=== PATIENT | female | born 1935 | race Caucasian/White ===

== ENCOUNTER 2019-02-01 16:34 | Inpatient (IN) | payer OTHER ==
[~2019-02-01] VITALS: Ht 160 cm; Wt 87.7 kg
[2019-02-01 16:45] VITALS: BP_SYST 134
[2019-02-01 17:19] LABS: BASOPHILS # (AUTO) 0.1 K/uL (0.0-0.2); EOSINOPHILS # (AUTO) 0.5 K/uL (0.0-0.4); EOSINOPHILS % (AUTO) 7.5 % (0.0-4.0); HEMATOCRIT 39.1 % (36-48); HEMOGLOBIN 13.1 g/dL (12.0-16.0); LYMPHOCYTES % (AUTO) 28.2 % (20.5-51.5); MEAN CORPUSCULAR HEMOGLOBIN 30 pg (27-31); MEAN CORPUSCULAR HGB CONC 34 % (32-36); MEAN CORPUSCULAR VOLUME 91 fL (79.0-98.0); MONOCYTES # (AUTO) 0.6 K/uL (0.0-1.0); MONOCYTES % (AUTO) 7.9 % (1.7-9.3); NEUTROPHILS % (AUTO) 55.4 % (40.0-70.0); PLATELET COUNT (AUTO) 371 K/uL (130-430); RED BLOOD CELL COUNT(AUTO) 4.29 MIL/uL (4.2-6.2); RED CELL DISTRIBUTION WIDTH 13.9 % (9.0-15.0); WHITE BLOOD COUNT (AUTO) 7.1 K/uL (4.8-10.8)
[2019-02-01 17:29] LABS: ANION GAP 12 (5-15); CHLORIDE 111 mmol/L (98-107); CREATININE 1.03 mg/dL (0.55-1.30); GLUCOSE 98 mg/dL (70-99); POTASSIUM 3.9 mmol/L (3.5-5.1); SODIUM SERUM 143 mmol/L (136-145); UREA NITROGEN, BLOOD 21 mg/dL (8-21)
[2019-02-01] MEDS ORDERED: METO50TA7 PO (17:29)
[2019-02-01] MEDS ORDERED: LEVO125T PO (17:29)
[2019-02-01] MEDS ORDERED: [UNRECOGNIZED DRUG - CODE] MC (17:29)
[2019-02-01] MEDS ORDERED: LOSA100T3 PO (17:29)
[2019-02-01] MEDS ORDERED: GABA300S PO (17:29)
[2019-02-01] MEDS ORDERED: GEMF600T5 PO (17:29)
[2019-02-01] MEDS ORDERED: RIVA15TA PO (17:29)
[2019-02-01] MEDS ORDERED: FURO-150 PO (17:29)
[2019-02-01] MEDS ORDERED: POTA10TA15 PO (17:29)
[2019-02-01] MEDS ORDERED: CIME800T PO (17:29)
[2019-02-01] MEDS ORDERED: ALBU2TAB4 INH (17:29)
[2019-02-01] MEDS ORDERED: DULO60CA41 PO (17:29)
[2019-02-01] MEDS ORDERED: VERA180T7 PO (17:29)
[2019-02-01] MEDS ORDERED: HYDROCODONE PO (17:29)
[2019-02-01] MEDS ORDERED: NIFE60TA83 PO (17:29)
[2019-02-01] MEDS ORDERED: TEMA15CA5 PO (17:29)
[2019-02-01] MEDS ORDERED: IPRA4AER INH (17:29)
[2019-02-01] MEDS ORDERED: DOCU-144 PO (17:29)
[2019-02-01] MEDS ORDERED: MIRT15TA7 PO (17:29)
[2019-02-01] MEDS ORDERED: METH1POW38 MC (17:29)
[2019-02-01] MEDS ORDERED: CAT.1 PO (17:29)
[2019-02-01 17:34] LABS: ALANINE AMINOTRANSFERASE 19 U/L (12-78); ALBUMIN 3.4 g/dL (3.4-4.8); ASPARTATE AMINOTRANSFERASE 13 U/L (10-37); TOTAL BILIRUBIN 0.4 mg/dL (0.0-1.0)
[2019-02-01 17:35] LABS: ACETAMINOPHEN < 1 ug/mL (1-30); ALCOHOL, BLOOD < 3 mg/dL (<10)
[2019-02-01 17:40] LABS: BILIRUBIN,URINE NEGATIVE (NEGATIVE); CLARITY/URINE CLEAR (CLEAR); COLOR,URINE YELLOW (YELLOW); GLUCOSE,URINE NEGATIVE (NEGATIVE); KETONES,URINE NEGATIVE (NEGATIVE); LEUKOCYTE ESTERASE ,URINE NEGATIVE (NEGATIVE); NITRITE, URINE NEGATIVE (NEGATIVE); PH,URINE 5.5 (5.0-8.0); PROTEIN URINE NEGATIVE (NEGATIVE); UROBILINOGEN,URINE 0.2 (0.2-1.0)
[2019-02-01 17:44] LABS: BLOOD, URINE TRACE (NEGATIVE)
[2019-02-01 17:48] LABS: BACTERIA,URINE FEW /HPF (None Seen); MUCUS,URINE 2+ /LPF (None Seen)
[2019-02-01 18:00] LABS: INR 1.1 (0.8-1.2); PROTHROMBIN TIME 11.6 SECS (9.5-12.5)
[2019-02-01 18:04] LABS: BARBITURATE, URINE NEGATIVE (NEG <=200); BENZODIAZEPINE, URINE POSITIVE (NEG <=150); CANNABINOID, URINE NEGATIVE (NEG <=50); COCAINE, URINE NEGATIVE (NEG <=150); METHAMPHETAMINES SCREEN,URINE NEGATIVE (NEG <=500); OPIATE, URINE POSITIVE (NEG <=100); PHENCYCLIDINE SCREEN,URINE NEGATIVE (NEG <=25); UR TRICYCLIC ANTIDEPRESSANTS POSITIVE (NEG <=300); URINE AMPHETAMINE NEGATIVE (NEG <=500); URINE METHADONE NEGATIVE (NEG <=200); URINE OXYCODONE SCREEN NEGATIVE (NEG <=100); URINE PROPOXYPHENE SCREEN NEGATIVE (NEG <=300)
[2019-02-01] MEDS ORDERED: ASPIRIN 325 MG TABLET PO ONE (18:30)
[2019-02-01] MEDS ORDERED: ACETAMINOPHEN 325 MG TABLET PO ONE (19:15)
[2019-02-01 19:59] VITALS: BP_SYST 131
[2019-02-01] MEDS ORDERED: cloNIDine HCL 0.1 MG TABLET PO SCH (20:00)
[2019-02-01 20:24] VITALS: BP_SYST 131
[2019-02-01] MEDS ORDERED: IPRATROPIUM/ALBUTEROL SULFATE 120 PUFFS/4 GM INH INH SCH (21:00)
[2019-02-01] MEDS: IPRATROPIUM/ALBUTEROL SULFATE 3 ML AMPUL.NEB (DUONEB) INH SCH (21:00)
[2019-02-01] MEDS: TEMAZEPAM 15 MG CAPSULE PO SCH (21:23)
[2019-02-01] MEDS: GEMFIBROZIL 600 MG TABLET (LOPID) PO SCH (21:23)
[2019-02-01] MEDS: DOCUSATE SODIUM 250 MG CAPSULE PO SCH (21:25)
[2019-02-01] MEDS: VERAPAMIL HCL 180 MG TABLET.SA PO SCH (21:25)
[2019-02-01] MEDS: MIRTAZAPINE 15 MG TABLET PO SCH (21:25)
[2019-02-01 21:26] VITALS: BP_SYST 131
[2019-02-01] MEDS: METOPROLOL SUCCINATE 50 MG TAB.SR.24H (TOPROL XL) PO SCH (21:26)
[2019-02-01] MEDS: FUROSEMIDE 20 MG TABLET PO SCH (21:26)
[2019-02-01] MEDS: RIVAROXABAN 15 MG TABLET PO SCH (21:27)
[2019-02-02 00:43] VITALS: BP_SYST 144
[2019-02-02] MEDS: LEVOTHYROXINE SODIUM 0.15 MG TABLET PO SCH (06:32)
[2019-02-02] MEDS: IPRATROPIUM/ALBUTEROL SULFATE 3 ML AMPUL.NEB (DUONEB) INH SCH ×4 (07:28→19:55)
[2019-02-02 08:39] VITALS: BP_SYST 155
[2019-02-02] MEDS: GEMFIBROZIL 600 MG TABLET (LOPID) PO SCH ×2 (08:49→20:39)
[2019-02-02] MEDS: NIFEDIPINE 30 MG TAB.ER.24 PO SCH (08:49)
[2019-02-02] MEDS: VERAPAMIL HCL 180 MG TABLET.SA PO SCH ×2 (08:50→20:40)
[2019-02-02] MEDS: FUROSEMIDE 20 MG TABLET PO SCH ×2 (08:50→20:40)
[2019-02-02] MEDS: DULoxetine HCL 30 MG CAPSULE.DR (CYMBALTA) PO SCH (08:51)
[2019-02-02] MEDS: DOCUSATE SODIUM 250 MG CAPSULE PO SCH ×2 (08:51→20:39)
[2019-02-02] MEDS: LOSARTAN POTASSIUM 50 MG TABLET (COZAAR) PO SCH (08:52)
[2019-02-02] MEDS: POTASSIUM CHLORIDE 10 MEQ TAB.PRT.SR PO SCH (08:52)
[2019-02-02] MEDS: METOPROLOL SUCCINATE 50 MG TAB.SR.24H (TOPROL XL) PO SCH ×2 (08:52→20:41)
[2019-02-02] MEDS ORDERED: MORPHINE 2 MG/ML INJ. SYRINGE IVP ONE (09:15)
[2019-02-02 11:31] VITALS: BP_SYST 148
[2019-02-02 15:47] VITALS: BP_SYST 155
[2019-02-02 20:00] VITALS: BP_SYST 160
[2019-02-02] MEDS: TEMAZEPAM 15 MG CAPSULE PO SCH (20:39)
[2019-02-02] MEDS: MIRTAZAPINE 15 MG TABLET PO SCH (20:40)
[2019-02-02] MEDS: RIVAROXABAN 15 MG TABLET PO SCH (20:41)
[2019-02-03 02:26] VITALS: BP_SYST 158
[2019-02-03] MEDS: LEVOTHYROXINE SODIUM 0.15 MG TABLET PO SCH (06:21)
[2019-02-03] MEDS: IPRATROPIUM/ALBUTEROL SULFATE 3 ML AMPUL.NEB (DUONEB) INH SCH ×3 (07:13→15:24)
[2019-02-03 07:55] VITALS: BP_SYST 147
[2019-02-03] MEDS: LOSARTAN POTASSIUM 50 MG TABLET (COZAAR) PO SCH (09:49)
[2019-02-03] MEDS: DULoxetine HCL 30 MG CAPSULE.DR (CYMBALTA) PO SCH (09:49)
[2019-02-03] MEDS: NIFEDIPINE 30 MG TAB.ER.24 PO SCH (09:50)
[2019-02-03] MEDS: METOPROLOL SUCCINATE 50 MG TAB.SR.24H (TOPROL XL) PO SCH (09:50)
[2019-02-03] MEDS: FUROSEMIDE 20 MG TABLET PO SCH (09:50)
[2019-02-03] MEDS: VERAPAMIL HCL 180 MG TABLET.SA PO SCH (09:51)
[2019-02-03] MEDS: POTASSIUM CHLORIDE 10 MEQ TAB.PRT.SR PO SCH (09:51)
[2019-02-03] MEDS: DOCUSATE SODIUM 250 MG CAPSULE PO SCH (09:51)
[2019-02-03] MEDS: GEMFIBROZIL 600 MG TABLET (LOPID) PO SCH (09:51)
[2019-02-03 12:01] VITALS: BP_SYST 150
[2019-02-03 12:58] LABS: FREE T4 (FREE THYROXINE) 1.3 ng/dL (0.6-1.6); THYROID STIMULATING HORMONE 0.13 uIu/mL (0.34-4.82)
[2019-02-03 17:18] VITALS: BP_SYST 159
[2019-02-03 17:50] VITALS: BP_SYST 102
== END 2019-02-03 18:19 | disposition home or self-care (01) | DRG 312 ==
LOC: SED 16:34 → STU 18:41
PROVIDERS: ADMIT Internal Medicine Hospice and Palliative Medicine; ATTEND Internal Medicine Hospice and Palliative Medicine
DX: R55 Syncope and collapse (principal); J96.10 Chronic respiratory failure, unspecified whether with hypoxia or hypercapnia; J44.9 Chronic obstructive pulmonary disease, unspecified; E03.9 Hypothyroidism, unspecified; E66.9 Obesity, unspecified; I10 Essential (primary) hypertension; M19.90 Unspecified osteoarthritis, unspecified site; W06.XXXA Fall from bed, initial encounter; T50.995A Adverse effect of other drugs, medicaments and biological substances, initial encounter; M79.7 Fibromyalgia; Z79.01 Long term (current) use of anticoagulants; Z86.73 Personal history of transient ischemic attack (TIA), and cerebral infarction without residual deficits; Z87.891 Personal history of nicotine dependence; Z99.81 Dependence on supplemental oxygen; Z88.6 Allergy status to analgesic agent; Z88.1 Allergy status to other antibiotic agents; Z91.040 Latex allergy status; Z88.0 Allergy status to penicillin; Z91.048 Other nonmedicinal substance allergy status; Z79.899 Other long term (current) drug therapy; Z68.34 Body mass index [BMI] 34.0-34.9, adult; Y93.89 Activity, other specified; Y92.89 Other specified places as the place of occurrence of the external cause; Y99.8 Other external cause status
CPT/HCPCS: 36415; 70450-TC; 71045; 80053; 80307; 81000-TC; 84439; 84443-TC; 84484; 85025; 85610-TC; 85730-TC; 93005; 93306; 94640; 94760; 99285; G0378; G0480; G0481; G0482; J2270; J7620

== ENCOUNTER 2021-02-06 19:21 | Inpatient (IN) | payer OTHER, SELFPAY ==
[~2021-02-06] VITALS: Ht 162.6 cm; Wt 77.1 kg
[~2021-02-06 19:21] MED LIST: ALBU2TAB4 INH; CAT.1 PO; CIME800T PO; DOCU-144 PO; DULO60CA41 PO; FURO-150 PO; GABA300S PO; GEMF600T89 PO; HYDROCODONE PO; IPRA4AER INH; LEVO125T PO; LOSA100T3 PO; METH1POW38 MC; METO50TA7 PO; MIRT15TA7 PO; NIFE60TA83 PO; POTA10TA15 PO; RIVA15TA PO; TEMA15CA5 PO; VERA180T11 PO; [UNRECOGNIZED DRUG - CODE] MC
[2021-02-06 19:25] VITALS: BP_SYST 115
--- NOTE | 2021-02-06 19:30 | NUR ---
Pt BIB BLS from home c/o generalized weakness. Per family pt was recently discharged from [facility] for PNA on Thursday. Since then patient has been increasingly weaker. Per family pt is normally ambulatory at home. Pt has a hx of UTI's and COPD. Per family patients O2 sat was at low as 83% today on 2L/NC. Pt arrived to ED on 4L/NC with SpO2 91% while talking, A/O x3. Pt denies any complaints.
--- NOTE | 2021-02-06 19:31 | NUR ---
Placed in room 4 . Placed on air sampling and monitoring, blood pressure machine and pulse oximeter. To gown for exam. Side rails up.
[2021-02-06] MEDS ORDERED: IPRATROPIUM/ALBUTEROL SULFATE 3 ML AMPUL.NEB (DUONEB) INH ONE ×3 (19:45)
[2021-02-06] MEDS ORDERED: methylPREDNISolone SOD SUCC/PF 62.5 MG/ML VIAL IVP ONE (19:45)
--- NOTE | 2021-02-06 19:45 | NUR ---
Dr. Martinez at bedside
[2021-02-06 20:21] LABS: BASOPHILS # (AUTO) 0.1 K/uL (0.0-0.2); BASOPHILS % (AUTO) 0.6 % (0.0-2.0); EOSINOPHILS % (AUTO) 0.4 % (0.0-4.0); HEMATOCRIT 34.2 % (36-48); HEMOGLOBIN 11.4 g/dL (12.0-16.0); LYMPHOCYTES # (AUTO) 2.3 K/uL (1.0-5.5); LYMPHOCYTES % (AUTO) 21.9 % (20.5-51.5); MEAN CORPUSCULAR HEMOGLOBIN 30 pg (27-31); MEAN CORPUSCULAR HGB CONC 33 % (32-36); MEAN CORPUSCULAR VOLUME 89 fL (79.0-98.0); MONOCYTES # (AUTO) 1.1 K/uL (0.0-1.0); MONOCYTES % (AUTO) 10.8 % (1.7-9.3); NEUTROPHILS # (AUTO) 6.8 K/uL (1.8-7.7); NEUTROPHILS % (AUTO) 66.3 % (40.0-70.0); PLATELET COUNT (AUTO) 350 K/uL (130-430); RED BLOOD CELL COUNT(AUTO) 3.83 MIL/uL (4.2-6.2); RED CELL DISTRIBUTION WIDTH 15.2 % (9.0-15.0); WHITE BLOOD COUNT (AUTO) 10.3 K/uL (4.8-10.8)
[2021-02-06 20:29] LABS: BILIRUBIN,URINE NEGATIVE (NEGATIVE); BLOOD, URINE 2+ (NEGATIVE); CLARITY/URINE CLOUDY (CLEAR); COLOR,URINE YELLOW (YELLOW); GLUCOSE,URINE NEGATIVE (NEGATIVE); KETONES,URINE NEGATIVE (NEGATIVE); LEUKOCYTE ESTERASE ,URINE 2+ (NEGATIVE); NITRITE, URINE POSITIVE (NEGATIVE); PROTEIN URINE 1+ (NEGATIVE); UROBILINOGEN,URINE 0.2 (0.2-1.0)
--- NOTE | 2021-02-06 20:30 | NUR ---
Patient resting quietly. No acute distress noted.
--- NOTE | 2021-02-06 20:41 | NUR ---
RT at bedside
[2021-02-06 20:47] LABS: ANION GAP 17 (5-15); CALCIUM 9.2 mg/dL (8.4-11.0); CHLORIDE 106 mmol/L (98-107); GLUCOSE 106 mg/dL (70-99); POTASSIUM 3.6 mmol/L (3.5-5.1); SODIUM SERUM 145 mmol/L (136-145); UREA NITROGEN, BLOOD 29 mg/dL (8-21)
[2021-02-06 20:53] LABS: ALANINE AMINOTRANSFERASE 11 U/L (12-78); ALBUMIN 3.2 g/dL (3.4-4.8); ASPARTATE AMINOTRANSFERASE 8 U/L (10-37); TOTAL BILIRUBIN 0.4 mg/dL (0.0-1.0)
[2021-02-06] MEDS ORDERED: ACET-73 PO (20:56)
[2021-02-06] MEDS ORDERED: POLY15DR31 EACH EYE (20:56)
[2021-02-06] MEDS ORDERED: FAMO40TA7 PO (20:56)
[2021-02-06] MEDS ORDERED: BISA10SU61 RC (20:56)
[2021-02-06] MEDS ORDERED: MOM PO (20:56)
[2021-02-06] MEDS ORDERED: NIFE60TA65 PO (20:56)
--- NOTE | 2021-02-06 20:57 | NUR ---
Medication reconciliation completed with information provided by MED LIST. Any prior medication reconciliation on file was reviewed and corrected.
[2021-02-06] MEDS ORDERED: cefTRIAXone 1 GM VIAL IM ONE (21:00)
--- NOTE | 2021-02-06 21:24 | NUR ---
Patient will be admitted to care of DR. ZELAYA. Admitted to MED SURG unit. Belongings list completed. Complete and up to date summary report printed. SBAR report to be given at bedside with opportunity for questions.
[2021-02-06 21:36] LABS: RBC,URINE 0-3 /HPF (0-3)
[2021-02-06 21:37] LABS: BACTERIA,URINE MANY /HPF (None Seen); CALCIUM OXALATE CRYSTALS,UR None Seen /HPF (None Seen); CALCIUM PHOSPHATE CRYSTALS,UR None Seen /HPF (None Seen); COARSE GRANULAR CASTS,URINE None Seen /LPF (None Seen); FINE GRANULAR CASTS,URINE None Seen /LPF (None Seen); HYALINE CASTS, URINE None Seen /LPF (None Seen); MUCUS,URINE None Seen /LPF (None Seen); OTHER CASTS, URINE None Seen /LPF (None Seen); OTHER CRYSTALS,URINE None Seen /HPF (None Seen); TRICHOMONAS,URINE None Seen /HPF (None Seen); TRIPLE PHOSPHATE CRYSTAL,UR None Seen /HPF (None Seen); URIC ACID CRYSTALS,URINE None Seen /HPF (None Seen); URINE AMORPHOUS PHOSPHATES None Seen /HPF (None Seen); URINE AMORPHOUS URATE None Seen /HPF (None Seen); WAXY CASTS,URINE None Seen /LPF (None Seen); WBC,URINE >100 /HPF (0-3); YEAST,URINE None Seen /HPF (None Seen)
[2021-02-06] MEDS ORDERED: cefTRIAXone 1 GM VIAL ONE (21:40)
[2021-02-06] MEDS ORDERED: cefTRIAXone 1 GM in D5W 50 ML IV ONE (21:45)
--- NOTE | 2021-02-06 21:47 | NUR ---
Patient's code status is DNR- COMFORT MEASURES ONLY paperwork completed and placed in chart.
--- NOTE | 2021-02-06 22:40 | NUR ---
[facility] IV present no sign or symptom of infiltration. Report given to bedside RN
--- NOTE | 2021-02-06 22:50 | NUR ---
ADMISSION: The patient, ANALY SHANKAR, 85 y/o, F admitted by ALEJANDRA ZELAYA MD, was given written information regarding hospital policies, unit procedures and contact persons. Valuables were checked and pt oriented to her room and surrounding.
[2021-02-06 23:15] VITALS: BP_SYST 129
[2021-02-07] MEDS ORDERED: HYDROCODONE PO PRN (01:00)
[2021-02-07] MEDS ORDERED: ACETAMINOPHEN 500 MG TABLET PO PRN (01:00)
[2021-02-07] MEDS ORDERED: LORazepam 2 MG/ML VIAL IVP PRN (01:00)
[2021-02-07] MEDS ORDERED: NALOXONE HCL 0.4 MG/ML AMP (NARCAN) IVP PRN (01:00)
[2021-02-07] MEDS ORDERED: BISACODYL 10 MG/SUPPOSITORY RC SCH (01:00)
[2021-02-07] MEDS ORDERED: ONDANSETRON HCL 4 MG/2 ML VIAL IVP PRN (01:00)
[2021-02-07] MEDS ORDERED: IPRATROPIUM BROM 0.5 MG/2.5 ML VIAL.NEB (ATROVENT) INH PRN (01:00)
[2021-02-07] MEDS ORDERED: ALBUTEROL SULFATE 0.083% 2.5 MG/3 ML VIAL.NEB INH PRN (01:00)
[2021-02-07] MEDS ORDERED: HYDROcodone/ACETAMIN 5-325 MG TAB (NORCO/ VICODIN) PO PRN (01:00)
[2021-02-07 01:24] VITALS: BP_SYST 129
--- NOTE | 2021-02-07 02:28 | NUR ---
Consultation Paged Reason for Consultation: UTI Was consult called: Y Person who was notified: Madhavi Consulting Physician: Dr. Fitzgerald Ordering Physician: Esequiel Sweet
[2021-02-07] MEDS: LEVOTHYROXINE SODIUM 0.15 MG TABLET PO SCH (06:03)
[2021-02-07] MEDS: NORMAL SALINE 5 ML DISP.SYRIN IVF SCH ×3 (06:03→21:50)
--- NOTE | 2021-02-07 06:45 | NUR ---
PT IS RESTING QUIETLY IN BED. ALL PT'S NEEDS WERE ATTENDED TO. WILL ENDORSE TO DAY SHIFT NURSE.
--- NOTE | 2021-02-07 08:00 | NUR ---
PATIENT RESTING IN BED ON 2LPM NASAL CANULA BREATHING EVEN AND UNLABORED NO SIGN OF DISTRESS, VITALS WNL, LEFT A/C #20 PATENT. SAFETY PRECAUTIONS IN PLACE. WILL CONTINUE TO MONITOR.
[2021-02-07] MEDS ORDERED: NON-FORMULARY MEDICATION (Gabapentin 300 MG) PO SCH (09:00)
[2021-02-07] MEDS ORDERED: NIFEDIPINE 60 MG TABLET.SA (PROCARDIA XL 60 MG) PO SCH (09:00)
[2021-02-07] MEDS ORDERED: METHENAMINE 1 GM MC SCH (09:00)
[2021-02-07] MEDS ORDERED: CEFEPIME 2 GM in D5W 100 ML IV SCH (09:15)
[2021-02-07] MEDS ORDERED: MILK OF MAGNESIA 30 ML UDC PO PRN (10:00)
[2021-02-07] MEDS: CEFEPIME 1 GM in D5W 50 ML IV SCH (10:26)
[2021-02-07] MEDS: GEMFIBROZIL 600 MG TABLET (LOPID) PO SCH ×2 (10:27→21:48)
[2021-02-07] MEDS: GABAPENTIN 300 MG CAPSULE PO SCH ×2 (10:28→21:47)
[2021-02-07] MEDS: DULoxetine HCL 30 MG CAPSULE.DR (CYMBALTA) PO SCH (10:28)
[2021-02-07] MEDS: POTASSIUM CHLORIDE 10 MEQ TAB.PRT.SR PO SCH (10:28)
[2021-02-07] MEDS: FUROSEMIDE 20 MG TABLET PO SCH ×2 (10:28→21:49)
[2021-02-07] MEDS: PEG 400/HYPROMELLOSE/GLYCERIN 15 ML DROPS EACH EYE SCH ×2 (10:29→21:46)
[2021-02-07] MEDS: FAMOTIDINE 20 MG TABLET PO SCH (10:29)
[2021-02-07] MEDS: NIFEdipine 30 MG TAB.ER.24 PO SCH ×2 (10:31→21:47)
[2021-02-07] MEDS: METOPROLOL SUCCINATE 50 MG TAB.SR.24H (TOPROL XL) PO SCH ×2 (10:31→21:49)
[2021-02-07] MEDS: LOSARTAN POTASSIUM 50 MG TABLET (COZAAR) PO SCH (10:32)
[2021-02-07] MEDS: VERAPAMIL HCL 180 MG TABLET.SA PO SCH ×2 (10:42→21:48)
[2021-02-07 12:53] VITALS: BP_SYST 150
--- NOTE | 2021-02-07 15:00 | NUR ---
CONSULTATION: REASON FOR CONSULT: YEIMY CONSULTING PHYSICIAN: AP ORDERED BY: Gloria ZELAYA SPOKE WITH SAYDA [phone]
[2021-02-07 15:26] VITALS: BP_SYST 128
[2021-02-07] MEDS: RIVAROXABAN 15 MG TABLET PO SCH (17:25)
--- NOTE | 2021-02-07 20:00 | NUR ---
Opening notes Pt AAOx2, VSS, afebrile. No c/o pain. IV saline locked L.AC 20. Family at bedside. Call light within reach. Bed low, locked, siderails up x3, bed alarm on. To monitor.
[2021-02-07 20:15] VITALS: BP_SYST 112
[2021-02-07] MEDS: TEMAZEPAM 15 MG CAPSULE PO SCH (21:47)
[2021-02-07] MEDS: MIRTAZAPINE 15 MG TABLET PO SCH (21:48)
[2021-02-07] MEDS: METHENAMINE HIPPURATE 1 GM TABLET PO SCH (21:50)
--- NOTE | 2021-02-07 22:30 | NUR ---
IV RE-INSERTION: IV site not patent. Restarted on L. wrist 22G, saline locked. Successful after 2 attempts. Good blood return. Pt tolerated well.
[2021-02-08 00:48] VITALS: BP_SYST 136
[2021-02-08] MEDS: NORMAL SALINE 5 ML DISP.SYRIN IVF SCH ×2 (06:16→14:00)
[2021-02-08] MEDS: LEVOTHYROXINE SODIUM 0.15 MG TABLET PO SCH (06:16)
--- NOTE | 2021-02-08 06:40 | NUR ---
Closing notes Pt asleep, easily awakens. IV saline locked L.wrist 22G. Call light within reach. Bed low, locked, siderails up x3, bed alarm on. To endorse to AM nurse.
[2021-02-08 07:32] LABS: ALANINE AMINOTRANSFERASE 12 U/L (12-78); ALBUMIN 2.9 g/dL (3.4-4.8); ANION GAP 14 (5-15); ASPARTATE AMINOTRANSFERASE 7 U/L (10-37); CALCIUM 9.1 mg/dL (8.4-11.0); CHLORIDE 109 mmol/L (98-107); CREATININE 0.91 mg/dL (0.55-1.30); GLUCOSE 108 mg/dL (70-99); PHOSPHORUS 3.7 mg/dL (2.7-4.5); POTASSIUM 3.7 mmol/L (3.5-5.1); SODIUM SERUM 144 mmol/L (136-145); TOTAL BILIRUBIN 0.2 mg/dL (0.0-1.0); UREA NITROGEN, BLOOD 33 mg/dL (8-21)
[2021-02-08 07:38] LABS: BASOPHILS # (AUTO) 0.1 K/uL (0.0-0.2); BASOPHILS % (AUTO) 0.9 % (0.0-2.0); EOSINOPHILS # (AUTO) 0.3 K/uL (0.0-0.4); EOSINOPHILS % (AUTO) 2.5 % (0.0-4.0); HEMOGLOBIN 11.2 g/dL (12.0-16.0); LYMPHOCYTES # (AUTO) 1.9 K/uL (1.0-5.5); LYMPHOCYTES % (AUTO) 17.1 % (20.5-51.5); MEAN CORPUSCULAR HEMOGLOBIN 30 pg (27-31); MEAN CORPUSCULAR HGB CONC 33 % (32-36); MEAN CORPUSCULAR VOLUME 90 fL (79.0-98.0); MONOCYTES # (AUTO) 0.8 K/uL (0.0-1.0); MONOCYTES % (AUTO) 6.9 % (1.7-9.3); NEUTROPHILS # (AUTO) 8.2 K/uL (1.8-7.7); NEUTROPHILS % (AUTO) 72.6 % (40.0-70.0); PLATELET COUNT (AUTO) 409 K/uL (130-430); RED CELL DISTRIBUTION WIDTH 14.9 % (9.0-15.0); WHITE BLOOD COUNT (AUTO) 11.3 K/uL (4.8-10.8)
[2021-02-08 08:00] VITALS: BP_SYST 124
--- NOTE | 2021-02-08 08:00 | NUR ---
PATIENT RESTING IN BED ON 2LPM NASAL CANULA BREATHING EVEN AND UNLABORED NO SIGN OF DISTRESS, VITALS WNL. IV ACCESS ON LEFT WRIST PATENT. SAFETY PRECAUTIONS IN PLACE. WILL CONTINUE TO MONITOR.
[2021-02-08 08:38] LABS: C-REACTIVE PROTEIN QUANT 8.5 mg/dL (0-0.5)
[2021-02-08] MEDS: VERAPAMIL HCL 180 MG TABLET.SA PO SCH ×2 (09:00→21:00)
[2021-02-08] MEDS: METHENAMINE HIPPURATE 1 GM TABLET PO SCH (09:00)
[2021-02-08] MEDS: METOPROLOL SUCCINATE 50 MG TAB.SR.24H (TOPROL XL) PO SCH ×2 (09:00→21:39)
[2021-02-08] MEDS: NIFEdipine 30 MG TAB.ER.24 PO SCH ×2 (09:00→21:00)
[2021-02-08 09:03] LABS: ERYTHROCYTE SEDIMENTATION RATE 67 MM/HR (0-20)
[2021-02-08] MEDS: PEG 400/HYPROMELLOSE/GLYCERIN 15 ML DROPS EACH EYE SCH ×2 (10:35→21:32)
[2021-02-08] MEDS: DULoxetine HCL 30 MG CAPSULE.DR (CYMBALTA) PO SCH (10:36)
[2021-02-08] MEDS: FAMOTIDINE 20 MG TABLET PO SCH (10:36)
[2021-02-08] MEDS: POTASSIUM CHLORIDE 10 MEQ TAB.PRT.SR PO SCH (10:36)
[2021-02-08] MEDS: GABAPENTIN 300 MG CAPSULE PO SCH ×2 (10:37→21:30)
[2021-02-08] MEDS: GEMFIBROZIL 600 MG TABLET (LOPID) PO SCH ×2 (10:37→21:31)
[2021-02-08] MEDS: FUROSEMIDE 20 MG TABLET PO SCH ×2 (10:37→21:31)
[2021-02-08] MEDS: LOSARTAN POTASSIUM 50 MG TABLET (COZAAR) PO SCH (10:37)
[2021-02-08] MEDS: HYDROcodone/ACETAMIN 10-325 MG TAB PO PRN ×2 (10:38→17:35)
[2021-02-08] MEDS: CEFEPIME 1 GM in D5W 50 ML IV SCH (10:38)
--- NOTE | 2021-02-08 14:13 | NUR ---
CONSULTATION: REASON FOR CONSULT: AMS CONSULTING PHYSICIAN : CRYSTAL ORDERED BY: GARCIA SPOKE WITH WILLAM [phone]
[2021-02-08 16:18] VITALS: BP_SYST 117
[2021-02-08] MEDS: RIVAROXABAN 15 MG TABLET PO SCH (17:37)
--- NOTE | 2021-02-08 18:49 | NUR ---
PATIENT RESTING IN BED ON 2LPM NASAL CANULA BREATHING EVEN AND UNLABORED NO SIGN OF DISTRESS, WATCHING TV. SAFETY PRECAUTIONS IN PLACE. WILL CONTINUE TO MONITOR.
--- NOTE | 2021-02-08 19:30 | NUR ---
Opening notes Received report. Patient is resting in bed, no signs of distress noted. Breathing even and unlabored on 2 L NC. Patient gets short of breath at times. Educated patient to take deep breaths through the nose, patient verbalized understanding and able to do so. O2 sat at this time 95%. IV patent and intact, no signs of infiltration noted. Hygiene care provided. Patient able to help turn. Patient tolerated well. No other needs at this time. Call light with the patient. Safety precautions in place.
[2021-02-08 20:00] VITALS: BP_SYST 126
[2021-02-08] MEDS: MIRTAZAPINE 15 MG TABLET PO SCH (21:30)
[2021-02-08] MEDS: TEMAZEPAM 15 MG CAPSULE PO SCH (21:31)
[2021-02-09] MEDS: NORMAL SALINE 5 ML DISP.SYRIN IVF SCH ×4 (00:32→21:43)
[2021-02-09 00:53] VITALS: BP_SYST 127
--- NOTE | 2021-02-09 02:42 | NUR ---
RN rounds Patient is sleeping at this time. No signs of distress noted. Breathing even and unlabored on 2 L NC. No needs at this time. call light with the patient. Safety precautions in place.
[2021-02-09] MEDS: LEVOTHYROXINE SODIUM 0.15 MG TABLET PO SCH (06:02)
[2021-02-09 06:45] LABS: BASOPHILS % (AUTO) 0.6 % (0.0-2.0); EOSINOPHILS # (AUTO) 0.2 K/uL (0.0-0.4); HEMATOCRIT 36.8 % (36-48); HEMOGLOBIN 12.1 g/dL (12.0-16.0); LYMPHOCYTES # (AUTO) 1.4 K/uL (1.0-5.5); LYMPHOCYTES % (AUTO) 20.4 % (20.5-51.5); MEAN CORPUSCULAR HEMOGLOBIN 29 pg (27-31); MEAN CORPUSCULAR HGB CONC 33 % (32-36); MEAN CORPUSCULAR VOLUME 89 fL (79.0-98.0); MONOCYTES # (AUTO) 0.5 K/uL (0.0-1.0); MONOCYTES % (AUTO) 8.2 % (1.7-9.3); NEUTROPHILS # (AUTO) 4.5 K/uL (1.8-7.7); NEUTROPHILS % (AUTO) 67.8 % (40.0-70.0); PLATELET COUNT (AUTO) 336 K/uL (130-430); RED BLOOD CELL COUNT(AUTO) 4.14 MIL/uL (4.2-6.2); RED CELL DISTRIBUTION WIDTH 14.6 % (9.0-15.0); WHITE BLOOD COUNT (AUTO) 6.7 K/uL (4.8-10.8)
--- NOTE | 2021-02-09 06:56 | NUR ---
Closing notes Patient is resting in bed, no signs of distress noted. Breathing even and unlabored on 2 L NC. IV patent and intact, infusing fluids. all needs met throughout the shift. Call light with the patient. Safety precautions in place. Will endorse care to day shift RN. Addendum: 02/09/21 at 0658 by Ninoska Main RN Correction: IV patent and intact, saline locked. No signs of infiltration noted.
--- NOTE | 2021-02-09 07:30 | NUR ---
Opening note Received report from night nurse. Patient is alert and oriented X4. On 2 L nasal cannula and tolerating well with no signs of shortness of breath noted. IV is patent, saline locked. Bed locked and in lowest position. Call light within reach. Bed alarm on. Will continue to monitor.
[2021-02-09 07:58] LABS: ALANINE AMINOTRANSFERASE 9 U/L (12-78); ALBUMIN 2.9 g/dL (3.4-4.8); ANION GAP 16 (5-15); ASPARTATE AMINOTRANSFERASE 6 U/L (10-37); CHLORIDE 109 mmol/L (98-107); CREATININE 0.85 mg/dL (0.55-1.30); GLUCOSE 98 mg/dL (70-99); PHOSPHORUS 3.9 mg/dL (2.7-4.5); POTASSIUM 3.4 mmol/L (3.5-5.1); SODIUM SERUM 146 mmol/L (136-145); TOTAL BILIRUBIN 0.2 mg/dL (0.0-1.0); UREA NITROGEN, BLOOD 36 mg/dL (8-21)
[2021-02-09 08:00] VITALS: BP_SYST 138
[2021-02-09] MEDS: GABAPENTIN 300 MG CAPSULE PO SCH ×2 (08:26→21:42)
[2021-02-09] MEDS: VERAPAMIL HCL 180 MG TABLET.SA PO SCH ×2 (08:26→21:00)
[2021-02-09] MEDS: POTASSIUM CHLORIDE 10 MEQ TAB.PRT.SR PO SCH (08:26)
[2021-02-09] MEDS: DULoxetine HCL 30 MG CAPSULE.DR (CYMBALTA) PO SCH (08:27)
[2021-02-09] MEDS: FAMOTIDINE 20 MG TABLET PO SCH (08:27)
[2021-02-09] MEDS: FUROSEMIDE 20 MG TABLET PO SCH (08:27)
[2021-02-09] MEDS: LOSARTAN POTASSIUM 50 MG TABLET (COZAAR) PO SCH (08:27)
[2021-02-09] MEDS: GEMFIBROZIL 600 MG TABLET (LOPID) PO SCH ×2 (08:28→21:42)
[2021-02-09] MEDS: NIFEdipine 30 MG TAB.ER.24 PO SCH ×2 (08:28→21:00)
[2021-02-09] MEDS: METOPROLOL SUCCINATE 50 MG TAB.SR.24H (TOPROL XL) PO SCH ×2 (08:28→21:43)
[2021-02-09] MEDS: CEFEPIME 1 GM in D5W 50 ML IV SCH (08:30)
[2021-02-09] MEDS: PEG 400/HYPROMELLOSE/GLYCERIN 15 ML DROPS EACH EYE SCH ×2 (08:31→21:44)
[2021-02-09 08:48] LABS: ERYTHROCYTE SEDIMENTATION RATE 62 MM/HR (0-20)
[2021-02-09 09:35] LABS: C-REACTIVE PROTEIN QUANT 4.2 mg/dL (0-0.5)
[2021-02-09 11:45] LABS: FREE T4 (FREE THYROXINE) 1.1 ng/dl (0.8-1.5); THYROID STIMULATING HORMONE 0.69 uIu/mL (0.36-3.74)
[2021-02-09 12:13] VITALS: BP_SYST 146
--- NOTE | 2021-02-09 12:28 | NUR ---
CONSULTATION PAGED/CALLED Reason for Consultation: DC PLANNING: FAMILY REGUESTING EVAN SKINNER Person Who was Notified: SOCIAL SERVICE EXT [phone] Ordering Physician: JAZMIN CONN
[2021-02-09] MEDS: HYDROcodone/ACETAMIN 10-325 MG TAB PO PRN (13:32)
[2021-02-09 16:12] VITALS: BP_SYST 117
[2021-02-09] MEDS: RIVAROXABAN 15 MG TABLET PO SCH (17:09)
--- NOTE | 2021-02-09 18:51 | NUR ---
Closing note Received report from night nurse. Patient is alert and oriented X4. On 2 L nasal cannula and tolerating well with no signs of shortness of breath noted. IV is patent, saline locked. Bed locked and in lowest position. Call light within reach. Bed alarm on. Safety and fall precautions in place. Will endorse to night nurse.
--- NOTE | 2021-02-09 19:30 | NUR ---
Opening notes Received report. Patient is resting in bed, no signs of distress noted. Breathing even and unlabored on 2 L NC. IV patent and intact, no signs of infiltration noted. Family at bedside. No needs at this time. Call light with the patient. Safety precautions in place.
[2021-02-09 20:00] VITALS: BP_SYST 115
[2021-02-09] MEDS: MIRTAZAPINE 15 MG TABLET PO SCH (21:42)
[2021-02-09] MEDS: TEMAZEPAM 15 MG CAPSULE PO SCH (21:42)
[2021-02-10 00:26] VITALS: BP_SYST 121
[2021-02-10] MEDS: LEVOTHYROXINE SODIUM 0.15 MG TABLET PO SCH (06:16)
[2021-02-10] MEDS: NORMAL SALINE 5 ML DISP.SYRIN IVF SCH ×3 (06:16→21:15)
--- NOTE | 2021-02-10 06:43 | NUR ---
Closing notes Patient is resting in bed, no signs of distress noted. Breathing even and unlabored on 2 L NC. IV patent and intact, no signs of infiltration noted. all needs met throughout the shift. Call light with the patient. Safety precautions in place. Will endorse care to day shift RN.
[2021-02-10 08:00] VITALS: BP_SYST 163
[2021-02-10] MEDS: NIFEdipine 30 MG TAB.ER.24 PO SCH ×2 (08:01→21:14)
[2021-02-10] MEDS: HYDROcodone/ACETAMIN 10-325 MG TAB PO PRN ×2 (08:02→14:28)
[2021-02-10] MEDS: DULoxetine HCL 30 MG CAPSULE.DR (CYMBALTA) PO SCH (08:03)
[2021-02-10] MEDS: FAMOTIDINE 20 MG TABLET PO SCH (08:04)
[2021-02-10] MEDS: VERAPAMIL HCL 180 MG TABLET.SA PO SCH ×2 (08:04→21:13)
[2021-02-10] MEDS: GABAPENTIN 300 MG CAPSULE PO SCH ×2 (08:04→21:13)
[2021-02-10] MEDS: GEMFIBROZIL 600 MG TABLET (LOPID) PO SCH ×2 (08:04→21:13)
[2021-02-10] MEDS: LOSARTAN POTASSIUM 50 MG TABLET (COZAAR) PO SCH (08:04)
[2021-02-10] MEDS: PEG 400/HYPROMELLOSE/GLYCERIN 15 ML DROPS EACH EYE SCH ×2 (08:05→21:15)
[2021-02-10] MEDS: METOPROLOL SUCCINATE 50 MG TAB.SR.24H (TOPROL XL) PO SCH ×2 (08:05→21:14)
[2021-02-10 08:55] LABS: BASOPHILS # (AUTO) 0.1 K/uL (0.0-0.2); BASOPHILS % (AUTO) 0.9 % (0.0-2.0); EOSINOPHILS # (AUTO) 0.2 K/uL (0.0-0.4); EOSINOPHILS % (AUTO) 3.7 % (0.0-4.0); HEMATOCRIT 41.1 % (36-48); HEMOGLOBIN 13.7 g/dL (12.0-16.0); LYMPHOCYTES # (AUTO) 1.8 K/uL (1.0-5.5); LYMPHOCYTES % (AUTO) 28.8 % (20.5-51.5); MEAN CORPUSCULAR HEMOGLOBIN 29 pg (27-31); MEAN CORPUSCULAR HGB CONC 33 % (32-36); MEAN CORPUSCULAR VOLUME 88 fL (79.0-98.0); MONOCYTES # (AUTO) 0.6 K/uL (0.0-1.0); MONOCYTES % (AUTO) 10.2 % (1.7-9.3); NEUTROPHILS # (AUTO) 3.6 K/uL (1.8-7.7); NEUTROPHILS % (AUTO) 56.4 % (40.0-70.0); PLATELET COUNT (AUTO) 361 K/uL (130-430); RED BLOOD CELL COUNT(AUTO) 4.66 MIL/uL (4.2-6.2); RED CELL DISTRIBUTION WIDTH 14.4 % (9.0-15.0); WHITE BLOOD COUNT (AUTO) 6.3 K/uL (4.8-10.8)
[2021-02-10 09:21] LABS: ALANINE AMINOTRANSFERASE 15 U/L (12-78); ALBUMIN 3.1 g/dL (3.4-4.8); ANION GAP 13 (5-15); ASPARTATE AMINOTRANSFERASE 12 U/L (10-37); CALCIUM 9.5 mg/dL (8.4-11.0); CHLORIDE 106 mmol/L (98-107); CREATININE 0.87 mg/dL (0.55-1.30); GLUCOSE 102 mg/dL (70-99); PHOSPHORUS 3.9 mg/dL (2.7-4.5); SODIUM SERUM 143 mmol/L (136-145); TOTAL BILIRUBIN 0.3 mg/dL (0.0-1.0); UREA NITROGEN, BLOOD 31 mg/dL (8-21)
[2021-02-10] MEDS: CEFEPIME 1 GM in D5W 50 ML IV SCH (10:03)
--- NOTE | 2021-02-10 10:25 | NUR ---
MAHNAZ noted: faxed snf referral package and LVM to Domitila, rayon winder admitting at [facility] fax# , tel [phone]. Addendum: 02/10/21 at 1448 by Stanton Velazquez RN Late entry: s/w Domitila madrigal am, stated the facility is a full capacity, no bed available. She couldn't tell when one will be available. I called eden/Coleen muro unable to leave message her mailbox is full. I left message to the pt's home phone for the dtr to call back kraig to discuss snf placement. Addendum: 02/10/21 at 1622 by Stanton Velazquez RN >> Discussed snf of choice with Jagjit:I provided in area snf info from [place] to [facility]. After the discussion, she requested [facility]. CM faxed the referral to fax# [phone], tel [phone] attn admission dept/Esther. She will call back once reviewed by NADYA. After 5 pm , she will call nursing unit if accepted and had bed assigned for the pt. The pt is to be dc today. . May call [facility] ambulance for transfer. JERRY Goode aware Disposition 03.
[2021-02-10] MEDS ORDERED: ALBU2.5V7 INH (11:24)
[2021-02-10] MEDS ORDERED: CEFE1FRO IV (11:24)
[2021-02-10 12:13] VITALS: BP_SYST 128
[2021-02-10 16:12] VITALS: BP_SYST 146
[2021-02-10 16:18] VITALS: BP_SYST 128
[2021-02-10] MEDS: RIVAROXABAN 15 MG TABLET PO SCH (17:03)
--- NOTE | 2021-02-10 18:43 | NUR ---
Closing note Patient is alert and oriented X4. On 2 L nasal cannula and tolerating well with no signs of shortness of breath noted. IV is patent, saline locked. Bed locked and in lowest position. Call light within reach. Bed alarm on. Safety and fall precautions in place. Will endorse to night nurse.
[2021-02-10 20:00] VITALS: BP_SYST 141
--- NOTE | 2021-02-10 20:05 | NUR ---
Opening notes Pt AAOx4, watching TV, no s/s distress noted. VSS. O2 sat 93% on O2 2L via NC. Pt denies pain at this time. L. wrist 22G saline locked, clear and patent. Call light within reach. Bed low, locked, siderails up x3, alarm on. To monitor.
[2021-02-10] MEDS: MIRTAZAPINE 15 MG TABLET PO SCH (21:13)
[2021-02-10] MEDS: TEMAZEPAM 15 MG CAPSULE PO SCH (21:13)
--- NOTE | 2021-02-10 22:30 | NUR ---
Commode Pt assisted to BSC and pt voided and had a large soft BM, pericare provided. Supervised back to bed. Bed alarm on. To monitor.
[2021-02-11] VITALS: BP_SYST 141
[2021-02-11] MEDS: LEVOTHYROXINE SODIUM 0.15 MG TABLET PO SCH (06:32)
[2021-02-11] MEDS: NORMAL SALINE 5 ML DISP.SYRIN IVF SCH ×2 (06:32→14:00)
--- NOTE | 2021-02-11 06:33 | NUR ---
Closing notes Pt asleep, easily awakens. Pt denies pain at this time. L. wrist 22G saline locked, clear and patent. Call light within reach. Bed low, locked, siderails up x3, alarm on. To endorse to AM nurse.
--- NOTE | 2021-02-11 06:55 | NUR ---
Pt incontinent of urine. Pericare provided.
[2021-02-11 08:00] VITALS: BP_SYST 130
[2021-02-11 08:56] LABS: BASOPHILS # (AUTO) 0.1 K/uL (0.0-0.2); BASOPHILS % (AUTO) 0.9 % (0.0-2.0); EOSINOPHILS # (AUTO) 0.3 K/uL (0.0-0.4); EOSINOPHILS % (AUTO) 3.8 % (0.0-4.0); HEMATOCRIT 40.3 % (36-48); HEMOGLOBIN 13.2 g/dL (12.0-16.0); LYMPHOCYTES # (AUTO) 1.8 K/uL (1.0-5.5); LYMPHOCYTES % (AUTO) 21.9 % (20.5-51.5); MEAN CORPUSCULAR HEMOGLOBIN 29 pg (27-31); MEAN CORPUSCULAR HGB CONC 33 % (32-36); MEAN CORPUSCULAR VOLUME 88 fL (79.0-98.0); MONOCYTES # (AUTO) 0.7 K/uL (0.0-1.0); MONOCYTES % (AUTO) 9.2 % (1.7-9.3); NEUTROPHILS # (AUTO) 5.2 K/uL (1.8-7.7); NEUTROPHILS % (AUTO) 64.2 % (40.0-70.0); PLATELET COUNT (AUTO) 360 K/uL (130-430); RED BLOOD CELL COUNT(AUTO) 4.59 MIL/uL (4.2-6.2); RED CELL DISTRIBUTION WIDTH 14.4 % (9.0-15.0); WHITE BLOOD COUNT (AUTO) 8.1 K/uL (4.8-10.8)
[2021-02-11] MEDS: CEFEPIME 1 GM in D5W 50 ML IV SCH (09:00)
[2021-02-11] MEDS: PEG 400/HYPROMELLOSE/GLYCERIN 15 ML DROPS EACH EYE SCH (09:00)
[2021-02-11] MEDS: DULoxetine HCL 30 MG CAPSULE.DR (CYMBALTA) PO SCH (09:03)
[2021-02-11] MEDS: VERAPAMIL HCL 180 MG TABLET.SA PO SCH (09:03)
[2021-02-11] MEDS: LOSARTAN POTASSIUM 50 MG TABLET (COZAAR) PO SCH (09:03)
[2021-02-11] MEDS: METOPROLOL SUCCINATE 50 MG TAB.SR.24H (TOPROL XL) PO SCH (09:03)
[2021-02-11] MEDS: FAMOTIDINE 20 MG TABLET PO SCH (09:04)
[2021-02-11] MEDS: NIFEdipine 30 MG TAB.ER.24 PO SCH (09:04)
[2021-02-11] MEDS: GABAPENTIN 300 MG CAPSULE PO SCH (09:04)
[2021-02-11] MEDS: GEMFIBROZIL 600 MG TABLET (LOPID) PO SCH (09:04)
[2021-02-11 09:24] LABS: ALANINE AMINOTRANSFERASE 11 U/L (12-78); ANION GAP 13 (5-15); ASPARTATE AMINOTRANSFERASE 7 U/L (10-37); CALCIUM 9.3 mg/dL (8.4-11.0); CHLORIDE 108 mmol/L (98-107); CREATININE 0.82 mg/dL (0.55-1.30); GLUCOSE 112 mg/dL (70-99); PHOSPHORUS 3.6 mg/dL (2.7-4.5); POTASSIUM 4.1 mmol/L (3.5-5.1); SODIUM SERUM 142 mmol/L (136-145); TOTAL BILIRUBIN 0.2 mg/dL (0.0-1.0); UREA NITROGEN, BLOOD 27 mg/dL (8-21)
[2021-02-11 11:33] VITALS: BP_SYST 116
--- NOTE | 2021-02-11 12:16 | NUR ---
CM note: per Margi[facility], the pt is assisgned to room 122, bed available now, RN to report # [phone]. JERRY Saavedra made aware, she will also arrange the ambulance , BLS transfer timely as well.
[2021-02-11 12:32] VITALS: BP_SYST 135
--- NOTE | 2021-02-11 12:40 | NUR ---
NOTE Called Stanton (MAHNAZ) and informed her that she needs to call [facility] as we are unable to call ambulance.
--- NOTE | 2021-02-11 12:51 | NUR ---
CM note: booked with [facility] for [facility]els[facility] picker time at 3 pm -- RN Keri made aware. DTR/Coleen made aware, she agreed with the transfer today.
--- NOTE | 2021-02-11 14:32 | NUR ---
PHYSICAL THERAPY CO-SIGN The Physical Therapy Progress Notes documented by Member Services Representative have been reviewed. Reviewed/Co-Signed by: Bandar Walker Documentation Done by: NADIR BARRAZA PTA Addendum: 02/11/21 at 1432 by Bandar Walker PT Amended: Links added.
--- NOTE | 2021-02-11 14:45 | NUR ---
NOTE Received order for discharge and pt being transferred to [facility], bed 122. Report was given to Vangie EDWARDS at [facility] for continuation of care. Pt's IV was dc'd from left wrist - site benign - no swelling/redness/bleeding/drainage noted. Pt dressed in orange gown and sheet. Pt stable. All belongings packed - checked side table and drawers for belongings. Discharge packet ready and at nurses' station at this time. Call light within reach.
--- NOTE | 2021-02-11 15:15 | NUR ---
Note EMT from [facility] on the floor - report and discharge packet given to EMT to give staff at [facility]. Pt off the floor via gurney with all her belongings to [facility]. Pt's daughter Coleen was called and notified of transfer at 1245pm and 1440pm. Updates given and questions/concerns were answered at this time. Addendum: 02/11/21 at 1636 by Keri Collins RN Pt was checked on q1' and PRN all shift for needs and care. Pt next to nurses' station for close observation. Pt's bed in low position and bed alarm on all shift.
[2021-02-11 15:48] VITALS: BP_SYST 118
== END 2021-02-11 15:15 | DRG 682 ==
LOC: EDBD → SED 19:21 → STU 21:25 → SMU 22:11
PROVIDERS: ADMIT Preventive Medicine Preventive Medicine/Occupational Environmental Medicine; ATTEND Preventive Medicine Preventive Medicine/Occupational Environmental Medicine
DX: N17.0 Acute kidney failure with tubular necrosis (principal); J96.01 Acute respiratory failure with hypoxia; G93.41 Metabolic encephalopathy; I50.43 Acute on chronic combined systolic (congestive) and diastolic (congestive) heart failure; I13.0 Hypertensive heart and chronic kidney disease with heart failure and stage 1 through stage 4 chronic kidney disease, or unspecified chronic kidney disease; N39.0 Urinary tract infection, site not specified; J44.1 Chronic obstructive pulmonary disease with (acute) exacerbation; E44.0 Moderate protein-calorie malnutrition; I25.10 Atherosclerotic heart disease of native coronary artery without angina pectoris; M19.90 Unspecified osteoarthritis, unspecified site; M79.7 Fibromyalgia; D64.9 Anemia, unspecified; Z20.822 Contact with and (suspected) exposure to COVID-19; R73.9 Hyperglycemia, unspecified; E88.09 Other disorders of plasma-protein metabolism, not elsewhere classified; E83.41 Hypermagnesemia; E86.0 Dehydration; F03.90 Unspecified dementia, unspecified severity, without behavioral disturbance, psychotic disturbance, mood disturbance, and anxiety; N18.9 Chronic kidney disease, unspecified; Z88.5 Allergy status to narcotic agent; Z88.0 Allergy status to penicillin; Z88.8 Allergy status to other drugs, medicaments and biological substances; Z79.899 Other long term (current) drug therapy; Z91.040 Latex allergy status; Z86.73 Personal history of transient ischemic attack (TIA), and cerebral infarction without residual deficits; Z87.01 Personal history of pneumonia (recurrent); Z87.440 Personal history of urinary (tract) infections; Z88.9 Allergy status to unspecified drugs, medicaments and biological substances; Z68.29 Body mass index [BMI] 29.0-29.9, adult
CPT/HCPCS: 36415; 71045; 80053; 81000; 83036; 83605; 83735; 83880; 84100; 84439; 84443; 84484; 85025; 85651-TC; 86140; 87040-TC; 87081; 87086; 93005; 94640; 96365; 96375; 99285; J0692; J0696; J2060; J2930; J7060

== ENCOUNTER 2021-03-13 11:08 | Emergency (ER) | payer OTHER, SELFPAY ==
[~2021-03-13] VITALS: Ht 162.6 cm; Wt 72.6 kg
[~2021-03-13 11:08] MED LIST changes: +ACET-73 PO; +ALBU2.5V7 INH; +BISA10SU61 RC; -CAT.1 PO; +CEFE1FRO IV; -DOCU-144 PO; -IPRA4AER INH; +MOM PO; +NIFE60TA65 PO; -NIFE60TA83 PO; +POLY15DR31 EACH EYE; -[UNRECOGNIZED DRUG - CODE] MC
[2021-03-13 11:19] VITALS: BP_SYST 140
[2021-03-13 12:07] LABS: BASOPHILS # (AUTO) 0.1 K/uL (0.0-0.2); BASOPHILS % (AUTO) 0.8 % (0.0-2.0); EOSINOPHILS # (AUTO) 0.2 K/uL (0.0-0.4); EOSINOPHILS % (AUTO) 2.8 % (0.0-4.0); HEMOGLOBIN 13.1 g/dL (12.0-16.0); LYMPHOCYTES # (AUTO) 1.8 K/uL (1.0-5.5); LYMPHOCYTES % (AUTO) 24.5 % (20.5-51.5); MEAN CORPUSCULAR HEMOGLOBIN 30 pg (27-31); MEAN CORPUSCULAR HGB CONC 34 % (32-36); MEAN CORPUSCULAR VOLUME 88 fL (79.0-98.0); MONOCYTES # (AUTO) 0.6 K/uL (0.0-1.0); MONOCYTES % (AUTO) 7.6 % (1.7-9.3); NEUTROPHILS # (AUTO) 4.9 K/uL (1.8-7.7); NEUTROPHILS % (AUTO) 64.3 % (40.0-70.0); PLATELET COUNT (AUTO) 351 K/uL (130-430); RED BLOOD CELL COUNT(AUTO) 4.43 MIL/uL (4.2-6.2); RED CELL DISTRIBUTION WIDTH 14.5 % (9.0-15.0); WHITE BLOOD COUNT (AUTO) 7.5 K/uL (4.8-10.8)
[2021-03-13 12:21] LABS: INR 2.2 (0.8-1.2); PROTHROMBIN TIME 22.5 SECS (9.5-12.5)
[2021-03-13 12:25] LABS: ALANINE AMINOTRANSFERASE 19 U/L (12-78); ALBUMIN 3.7 g/dL (3.4-4.8); ANION GAP 6 (5-15); ASPARTATE AMINOTRANSFERASE 20 U/L (10-37); CALCIUM 9.1 mg/dL (8.4-11.0); CHLORIDE 107 mmol/L (98-107); CREATININE 0.95 mg/dL (0.55-1.30); GLUCOSE 103 mg/dL (70-99); SODIUM SERUM 142 mmol/L (136-145); TOTAL BILIRUBIN 0.5 mg/dL (0.0-1.0); UREA NITROGEN, BLOOD 22 mg/dL (8-21)
[2021-03-13 14:28] VITALS: BP_SYST 157
== END 2021-03-13 14:30 | disposition home or self-care (01) ==
LOC: SED 11:08 → EDBD 11:08 → SED 14:30
DX: R04.0 Epistaxis (principal); I10 Essential (primary) hypertension; J44.9 Chronic obstructive pulmonary disease, unspecified; Z88.0 Allergy status to penicillin; Z88.5 Allergy status to narcotic agent; Z88.1 Allergy status to other antibiotic agents; Z79.899 Other long term (current) drug therapy
CPT/HCPCS: 36415; 80053; 85025; 85610-TC; 85730-TC; 99284

== ENCOUNTER 2021-03-15 15:10 | Emergency (ER) | payer OTHER ==
[~2021-03-15] VITALS: Ht 162.6 cm; Wt 72.6 kg
[2021-03-15 15:25] VITALS: BP_SYST 117
[2021-03-15 19:11] VITALS: BP_SYST 118
== END 2021-03-15 19:11 | disposition home or self-care (01) ==
LOC: SED 15:10
DX: R04.0 Epistaxis (principal); I10 Essential (primary) hypertension; J44.9 Chronic obstructive pulmonary disease, unspecified; Z88.0 Allergy status to penicillin; Z88.1 Allergy status to other antibiotic agents; Z88.5 Allergy status to narcotic agent; Z79.899 Other long term (current) drug therapy
CPT/HCPCS: 71045; 99283

== ENCOUNTER 2022-01-07 10:41 | Inpatient (IN) | payer OTHER ==
[2022-01-07] VITALS (7 sets, daily range): BP systolic 112–131
[~2022-01-07] VITALS: Ht 162.6 cm; Wt 63.5 kg
[~2022-01-07 10:41] MED LIST changes: -DULO60CA41 PO; +DULO60CA42 PO; +MIRT-91 PO; -MIRT15TA7 PO; -VERA180T11 PO; +VERA180T59 PO
--- NOTE | 2022-01-07 10:55 | NUR ---
PT PLACED IN ROOM 5 TO BE TRIAGED.
--- NOTE | 2022-01-07 10:58 | NUR ---
DR. EAGLE IN ROOM ASSESSING PT.
--- NOTE | 2022-01-07 10:59 | NUR ---
RECEIVED PT AAOX3 WITH EPISODE OF CONFUSION, PT SOB WITH NONREBREATHER IN PLACE AT 15LPM, O2 SAT 89%. PT TACHYPNEIC. SKIN CDI. WITH BLE 2+ EDEMA. DENIES PAIN .
--- NOTE | 2022-01-07 11:08 | NUR ---
ABG OBTAINED. Addendum: 01/07/22 at 1127 by [id number] DUPLICATE
--- NOTE | 2022-01-07 11:27 | NUR ---
PT PLACED ON HIGH FLOW N/C AT 25 L WITH FIO2 65% AT THIS TIME.
[2022-01-07 11:32] LABS: BASOPHILS # (AUTO) 0.1 K/uL (0.0-0.2); BASOPHILS % (AUTO) 0.4 % (0.0-2.0); EOSINOPHILS # (AUTO) 0.1 K/uL (0.0-0.4); EOSINOPHILS % (AUTO) 0.7 % (0.0-4.0); HEMATOCRIT 34.5 % (36-48); HEMOGLOBIN 11.4 g/dL (12.0-16.0); LYMPHOCYTES # (AUTO) 1.1 K/uL (1.0-5.5); LYMPHOCYTES % (AUTO) 7.1 % (20.5-51.5); MEAN CORPUSCULAR HEMOGLOBIN 29 pg (27-31); MEAN CORPUSCULAR HGB CONC 33 % (32-36); MEAN CORPUSCULAR VOLUME 86 fL (79.0-98.0); MONOCYTES # (AUTO) 0.7 K/uL (0.0-1.0); MONOCYTES % (AUTO) 4.4 % (1.7-9.3); NEUTROPHILS # (AUTO) 13.8 K/uL (1.8-7.7); NEUTROPHILS % (AUTO) 87.4 % (40.0-70.0); PLATELET COUNT (AUTO) 309 K/uL (130-430); RED BLOOD CELL COUNT(AUTO) 3.99 MIL/uL (4.2-6.2); RED CELL DISTRIBUTION WIDTH 14.1 % (9.0-15.0); WHITE BLOOD COUNT (AUTO) 15.8 K/uL (4.8-10.8)
[2022-01-07 11:34] LABS: ANION GAP 15 (5-15); CALCIUM 8.2 mg/dL (8.4-11.0); CHLORIDE 106 mmol/L (98-107); CREATININE 2.75 mg/dL (0.55-1.30); GLUCOSE 125 mg/dL (70-99); POTASSIUM 4.6 mmol/L (3.5-5.1); SODIUM SERUM 141 mmol/L (136-145); UREA NITROGEN, BLOOD 44 mg/dL (8-21)
[2022-01-07 11:42] LABS: ALANINE AMINOTRANSFERASE 83 U/L (12-78); ASPARTATE AMINOTRANSFERASE 72 U/L (10-37); TOTAL BILIRUBIN 0.4 mg/dL (0.0-1.0)
[2022-01-07] MEDS ORDERED: FUROSEMIDE 40 MG/4 ML VIAL IVP ONE (12:30)
[2022-01-07] MEDS ORDERED: NITROGLYCERIN 1 INCH (GM) OINT. TP ONE (12:30)
--- NOTE | 2022-01-07 12:43 | NUR ---
NITRO PASTE APPLED TO L UPPER CHEST, IV ABX INITIATED. PT RECEIVING BLOOD DRAW AT THIS TIME. RECEIVED ORDER FROM DEVIN JOSHI.
[2022-01-07] MEDS ORDERED: IPRATROPIUM/ALBUTEROL SULFATE 3 ML AMPUL.NEB (DUONEB) INH ONE (13:00)
--- NOTE | 2022-01-07 13:31 | NUR ---
Admit orders received from Dr. Taylor. Pt to be admitted to Tele for CHF/Respiratory Failure.
[2022-01-07] MEDS ORDERED: MORPHINE 2 MG/ML INJ. SYRINGE IVP ONE (13:45)
--- NOTE | 2022-01-07 13:55 | NUR ---
CT scan complete.
--- NOTE | 2022-01-07 14:07 | NUR ---
PAULA SAMPLE OBTAINED AND TAKEN TO LAB.
--- NOTE | 2022-01-07 14:33 | NUR ---
# 16 FR Lowery catheter with use of sterile technique. Immediate return of 150 cc CLEAR YELLOW urine noted. Bedside drainage bag placed below level of bladder. Pt tolerated procedure WELL. Patient unable to toilet self.
--- NOTE | 2022-01-07 15:30 | NUR ---
PT RESTING COMFORTABLY WITH SON AT BEDSIDE, AWAITING BED ASSIGNMENT. NO S/S OF PAIN OR DISTRESS.
--- NOTE | 2022-01-07 16:40 | NUR ---
Patient will be admitted to care of DR. ZELAYA. Admitted to TELE unit. Will go to room 114B. Belongings list completed. Complete and up to date summary report printed. SBAR report to be given at bedside with opportunity for questions.
[2022-01-07] MEDS ORDERED: CALC3.8S NS (17:01)
[2022-01-07] MEDS ORDERED: CALC-823 PO ×2 (17:01→17:11)
[2022-01-07] MEDS ORDERED: DULO60CA42 PO (17:01)
[2022-01-07] MEDS ORDERED: NEU300 PO (17:01)
[2022-01-07] MEDS ORDERED: ATEN-41 PO (17:01)
[2022-01-07] MEDS ORDERED: LEVO100T PO (17:01)
[2022-01-07] MEDS ORDERED: FURO-150 PO (17:01)
[2022-01-07] MEDS ORDERED: IPRA4AER INH (17:01)
[2022-01-07] MEDS ORDERED: LOP600 PO (17:01)
--- NOTE | 2022-01-07 17:13 | NUR ---
Transfer to Tele via ACLS protocol. Licensed nurse present. IV present no signs or symptoms of infiltration.
--- NOTE | 2022-01-07 17:15 | NUR ---
UNABLE TO TRANSFER TO [facility] AT THIS TIME. PT FIO2 100%, PT NEEDS ICU BED. PAGED DR. ZELAYA TO UP GRADE TO ICU.
--- NOTE | 2022-01-07 17:53 | NUR ---
Pt upgraded to ICU per Dr. Taylor. ICU notified. Awaiting bed assignment.
--- NOTE | 2022-01-07 18:13 | NUR ---
PT REQUIRES ICU DUE TO 100% FI02. PAGED DR. ZELAYA TO UP GRADE PT TO ICU.
[2022-01-07] MEDS: D5/0.45 NS 1,000 ML IV SCH ×2 (18:58→20:21)
--- NOTE | 2022-01-07 18:58 | NUR ---
REPORTED TO DR. ZELAYA PT HAS NO NUTRITION, PT IS QUESTIONABLE IF SHE SWALLOWS OKAY. RECEIVED ORDER FOR SWALLOW EVAL, PLACE NGT IF PT FAILS EVAL. D5 1/2NS AT 25ML/MIN.
--- NOTE | 2022-01-07 19:00 | NUR ---
Patient will be admitted to care of [facility]. Admitted to ICU unit. Will go to room 8. Belongings list completed. Complete and up to date summary report printed. SBAR report to be given at bedside with opportunity for questions.
--- NOTE | 2022-01-07 19:13 | NUR ---
Pt to ICU by esperanza with R.T. and EMT. Report given at bedside.
--- NOTE | 2022-01-07 20:00 | NUR ---
Transfer ER transfer patient to ICU bed 8. Patient is on high flow 30 L 100% FiO2. Patient is not in any respiratory distress.
--- NOTE | 2022-01-07 20:30 | NUR ---
Daughter Family came to visit patient. Answered all questions
[2022-01-07] MEDS ORDERED: MORPHINE 4 MG INJ. 4 MG/ML VIAL IVP PRN (21:00)
[2022-01-07] MEDS ORDERED: ONDANSETRON HCL 4 MG/2 ML VIAL IVP PRN (21:00)
[2022-01-07] MEDS ORDERED: NALOXONE HCL 0.4 MG/ML AMP (NARCAN) IVP PRN (21:00)
[2022-01-08] VITALS (25 sets, daily range): BP systolic 112–165
[2022-01-08] MEDS: ALBUTEROL SULFATE 0.083% 2.5 MG/3 ML VIAL.NEB INH SCH ×6 (03:45→20:25)
[2022-01-08] MEDS: IPRATROPIUM BROM 0.5 MG/2.5 ML VIAL.NEB (ATROVENT) INH SCH ×6 (03:46→20:25)
[2022-01-08 05:40] LABS: BASOPHILS # (AUTO) 0.1 K/uL (0.0-0.2); BASOPHILS % (AUTO) 0.5 % (0.0-2.0); EOSINOPHILS # (AUTO) 0.2 K/uL (0.0-0.4); EOSINOPHILS % (AUTO) 1.2 % (0.0-4.0); HEMOGLOBIN 10.6 g/dL (12.0-16.0); LYMPHOCYTES % (AUTO) 7.8 % (20.5-51.5); MEAN CORPUSCULAR HEMOGLOBIN 29 pg (27-31); MEAN CORPUSCULAR HGB CONC 33 % (32-36); MEAN CORPUSCULAR VOLUME 87 fL (79.0-98.0); MONOCYTES # (AUTO) 0.7 K/uL (0.0-1.0); MONOCYTES % (AUTO) 5.7 % (1.7-9.3); NEUTROPHILS # (AUTO) 11.2 K/uL (1.8-7.7); NEUTROPHILS % (AUTO) 84.8 % (40.0-70.0); PLATELET COUNT (AUTO) 265 K/uL (130-430); RED BLOOD CELL COUNT(AUTO) 3.67 MIL/uL (4.2-6.2); RED CELL DISTRIBUTION WIDTH 13.9 % (9.0-15.0); WHITE BLOOD COUNT (AUTO) 13.2 K/uL (4.8-10.8)
[2022-01-08 06:38] LABS: ALANINE AMINOTRANSFERASE 54 U/L (12-78); ALBUMIN 2.9 g/dL (3.4-4.8); ANION GAP 15 (5-15); ASPARTATE AMINOTRANSFERASE 38 U/L (10-37); C-REACTIVE PROTEIN QUANT 32.7 mg/dL (0-0.5); CALCIUM 7.8 mg/dL (8.4-11.0); CHLORIDE 108 mmol/L (98-107); CREATININE 2.37 mg/dL (0.55-1.30); GLUCOSE 100 mg/dL (70-99); PHOSPHORUS 5.5 mg/dL (2.7-4.5); POTASSIUM 4.2 mmol/L (3.5-5.1); SODIUM SERUM 144 mmol/L (136-145); TOTAL BILIRUBIN 0.4 mg/dL (0.0-1.0); UREA NITROGEN, BLOOD 46 mg/dL (8-21)
--- NOTE | 2022-01-08 07:30 | NUR ---
PATIENT IN BED, NO S/S OF DISTRESS, REPORT ENDORSED FROM COTTON PR[employer]ER, ADMITTED DURING THE NIGHT FROM ER, ADMITTED TO ER FROM HOME, PER REPORT DAUGHTER NOTICED INCREASED CONFUSION AND O2 SAT IN THE 70% WHEN PATIENT NORMALLY SATURATES IN THE 80s WITH SUPPLEMENTAL O2 AT HOME AND HAS COPD, CURRENTLY ON HIGH FLOW 30L 100% WITH O2 SAT OF 95%, WILL DISCUSS WITH PHYSICIANS IF WANT TO HAVE A PCR PERFORMED TO RULE OUT COVID SINCE CXR SHOWS SIGNS OF PNEUMONIA, TAVARES DRAINING CLEAR YELLOW URINE WITH 900ML OUT DURING COTTON PRESSER, SWALLOW EVALUATION ORDERED TO DETERMINE IF PATIENT CAN EAT OR HAVE NG TUBE PLACED BUT PER REPORT FROM COT[employer] PR[employer]ER THE DAUGHTER WANTS TO HOLD OFF ON NGT PLACEMENT FOR NOW, RIGHT AC 20 INTACT PATENT, SAFETY MEASURES IN PLACE, WILL CONTINUE TO MONITOR.
--- NOTE | 2022-01-08 07:51 | NUR ---
rt notes 0751 Titrated fio2 to 90%. Pt saturating 92%. will continue to monitor pt. JERRY koo.
--- NOTE | 2022-01-08 08:30 | NUR ---
PATIENT STATED SHE HAD TO POOP, PLACED ON BED LANTIGUA AND EDUCATED ON PURPOSE AND TO HAVE A BOWEL MOVEMENT, LET PATIENT HAVE TIME AND PRIVACY, SHE HAD A MODERATE SIZED SOLID BOWEL MOVEMENT. DAUGHTER MATHEW VISITED, SHE SAW PATIENT FROM OUTSIDE OF THE ROOM BUT DID NOT ENTER BECAUSE PATIENT IS ON ISOLATION TO RULE OUT COVID. ANSWERED ALL DAUGHTER QUESTIONS APPROPRIATE, VOICED UNDERSTANDING.
[2022-01-08] MEDS: FUROSEMIDE 20 MG/2 ML VIAL IVP SCH ×2 (08:52→22:04)
[2022-01-08 09:27] LABS: ERYTHROCYTE SEDIMENTATION RATE 67 MM/HR (0-20)
[2022-01-08 10:06] LABS: BILIRUBIN,URINE NEGATIVE (NEGATIVE); BLOOD, URINE 3+ (NEGATIVE); CLARITY/URINE CLEAR (CLEAR); COLOR,URINE YELLOW (YELLOW); GLUCOSE,URINE NEGATIVE (NEGATIVE); KETONES,URINE NEGATIVE (NEGATIVE); LEUKOCYTE ESTERASE ,URINE 3+ (NEGATIVE); NITRITE, URINE NEGATIVE (NEGATIVE); PROTEIN URINE TRACE (NEGATIVE); UROBILINOGEN,URINE 0.2 (0.2-1.0)
[2022-01-08 10:23] LABS: BACTERIA,URINE MODERATE /HPF (None Seen); MUCUS,URINE 1+ /LPF (None Seen); RBC,URINE 20-50 /HPF (0-3); WBC,URINE 50-80 /HPF (0-3)
[2022-01-08 11:12] LABS: THYROID STIMULATING HORMONE 0.52 uIu/mL (0.36-3.74)
--- NOTE | 2022-01-08 11:19 | NUR ---
SPOKE TO DR LÓPEZ ON THE PHONE, UPDATED ON PATIENT STATUS, DR LÓPEZ STATED HE BELIEVES HER TO HAVE A CASE OF ASPIRATION PNEUMONIA BUT HE DOES WANT TO RULE OUT COVID, HE WILL BE CHANGING HER ANTIBIOTIC REGIMEN AND SUGGESTS HER TO BE ON DEXAMETHASONE.
[2022-01-08] MEDS: DEXAMETHASONE SOD PHOSPHATE 10 MG/ML VIAL IVP SCH (12:19)
[2022-01-08] MEDS: CEFEPIME 2 GM in D5W 100 ML IV SCH (12:20)
[2022-01-08] MEDS ORDERED: LEVOFLOXACIN 250 MG/D5W 50 ML IV SCH (13:00)
--- NOTE | 2022-01-08 13:35 | NUR ---
RT NOTES 1335 Pt desaturating. Increased FIO2 to 100%, pt saturating 92%. Changed Vapotherm water. will continue to monitor pt. JERRY koo.
--- NOTE | 2022-01-08 16:15 | NUR ---
ST EVALUATION COMPLETED. ST TX NOT INDICATED AT THIS TIME. RECOMMEND PO DIET OF PUREE/NECTAR THICK LIQUIDS WITH 1:1 FEEDER AND FULL ASPIRATION PRECAUTIONS.
[2022-01-08] MEDS: MORPHINE 2 MG/ML INJ. SYRINGE IVP PRN (17:22)
--- NOTE | 2022-01-08 19:35 | NUR ---
@1935 Change of shift report received from Sai RN, pt awake, generalized weakness noted, minimal verbal responds verbal command, oxygenation via high flow nasal canulla 30L/100% O2 sat 96% no sign of respiratory distress noted vitals signs stable afebrile denies pain, shaffer was not in place tube was out balloon deflated, incontinence of bowel and bladder. Refused to eat her dinner just prefer sips of Ensure moves and withdrew to pain skin checked intact no break down noted, bed in low position call light at reach, and close monitoring for safety.
[2022-01-08] MEDS: metroNIDAZOLE 500 mg/NS 100 ML IV SCH (22:02)
--- NOTE | 2022-01-08 22:30 | NUR ---
Complete bed bath with CHG, new shaffer inserted, pt tolerated well and repositioned for comfort.
[2022-01-09] VITALS (24 sets, daily range): BP systolic 141–178
[2022-01-09] MEDS: ALBUTEROL SULFATE 0.083% 2.5 MG/3 ML VIAL.NEB INH SCH ×7 (01:03→23:00)
[2022-01-09] MEDS: IPRATROPIUM BROM 0.5 MG/2.5 ML VIAL.NEB (ATROVENT) INH SCH ×7 (01:03→23:00)
[2022-01-09] MEDS: hydrALAZINE HCL 20 MG/ML VIAL IVP PRN ×3 (06:47→17:10)
--- NOTE | 2022-01-09 06:50 | NUR ---
@ [address] Feng this morning about pt's condition, home medicatios that includes Xareloto, Gabapentin, Toprol just to mention few these are essentials for pt's healing mention to MD also elevated blood pressure order received Hydralazine 10 mg IVP q6prn and first dose given as at this time blood pressure was 170/65 HR 85.
[2022-01-09 06:59] LABS: ALANINE AMINOTRANSFERASE 41 U/L (12-78); ALBUMIN 2.9 g/dL (3.4-4.8); ANION GAP 15 (5-15); CALCIUM 8.9 mg/dL (8.4-11.0); CHLORIDE 112 mmol/L (98-107); CREATININE 1.15 mg/dL (0.55-1.30); GLUCOSE 136 mg/dL (70-99); POTASSIUM 3.5 mmol/L (3.5-5.1); SODIUM SERUM 148 mmol/L (136-145); TOTAL BILIRUBIN 0.3 mg/dL (0.0-1.0); UREA NITROGEN, BLOOD 36 mg/dL (8-21)
[2022-01-09 07:18] LABS: PHOSPHORUS 2.8 mg/dL (2.7-4.5)
--- NOTE | 2022-01-09 07:20 | NUR ---
Change of shift report at the bedside to Devan RN mentioned to her pt's slow response to verbal command, AFIB on te monitor, shaffer intact still on oxygenation via high nasal cannula 30ltrs/fio2 100% O2 sat 98% Hydralazine 10mg ivp given no changes in care plan
[2022-01-09 08:09] LABS: ASPARTATE AMINOTRANSFERASE 16 U/L (10-37)
[2022-01-09 08:24] LABS: C-REACTIVE PROTEIN QUANT 30.5 mg/dL (0-0.5)
[2022-01-09] MEDS: metroNIDAZOLE 500 mg/NS 100 ML IV SCH ×2 (08:56→21:53)
[2022-01-09] MEDS: FUROSEMIDE 20 MG/2 ML VIAL IVP SCH (08:56)
[2022-01-09 09:01] LABS: BASOPHILS % (AUTO) 0.3 % (0.0-2.0); HEMATOCRIT 32.2 % (36-48); HEMOGLOBIN 10.7 g/dL (12.0-16.0); LYMPHOCYTES # (AUTO) 0.7 K/uL (1.0-5.5); LYMPHOCYTES % (AUTO) 7.3 % (20.5-51.5); MEAN CORPUSCULAR HEMOGLOBIN 29 pg (27-31); MEAN CORPUSCULAR HGB CONC 33 % (32-36); MEAN CORPUSCULAR VOLUME 87 fL (79.0-98.0); MONOCYTES # (AUTO) 0.3 K/uL (0.0-1.0); MONOCYTES % (AUTO) 2.9 % (1.7-9.3); NEUTROPHILS % (AUTO) 89.5 % (40.0-70.0); PLATELET COUNT (AUTO) 284 K/uL (130-430); RED BLOOD CELL COUNT(AUTO) 3.69 MIL/uL (4.2-6.2); RED CELL DISTRIBUTION WIDTH 13.8 % (9.0-15.0); WHITE BLOOD COUNT (AUTO) 8.9 K/uL (4.8-10.8)
--- NOTE | 2022-01-09 09:47 | NUR ---
PATIENT HAD INCREASED CONFUSION AND LETHARGY BUT WAS FOLLOWING COMMANDS, DR ZELAYA AT NURSES STATION AND NOTIFIED OF PATIENT CURRENT STATUS, ORDERED A STAT CT SCAN AND AND NEURO CONSULT WITH DR ROJAS, IN ADDITION NOTIFIED DR ZELAYA THAT PATIENT HAS ELEVATED BLOOD PRESSURE WITH SYSTOLIC INTO THE 160S DESPITE HYDRALAZINE IVP THIS AM, ASKED IF COULD RESTART PATIENT ON HOME MEDICATIONS INCLUDING THOSE THAT ARE FOR ELEVATED BLOOD PRESSURE, STATED HE WILL TAKE A LOOK AT THE MEDS AND PUT ORDERS IN. PATIENT WAS TAKEN TO CT SCAN WITH ASSISTANCE OF XRAY AND RT. PATIENT TOLERATED TRANSFER AND IS NOW BACK IN BED AND ON MONITOR.
--- NOTE | 2022-01-09 09:54 | NUR ---
Called Ayla Hopkins with a consult,he is aware and will be here this afternoon
[2022-01-09] MEDS ORDERED: NIFEDIPINE 60 MG TABLET.SA (PROCARDIA XL 60 MG) PO SCH (10:30)
[2022-01-09] MEDS: DEXAMETHASONE SOD PHOSPHATE 10 MG/ML VIAL IVP SCH (10:52)
[2022-01-09] MEDS ORDERED: ATENOLOL 25 MG TABLET(TENORMIN) PO ONE (11:00)
[2022-01-09] MEDS ORDERED: LOSARTAN POTASSIUM 50 MG TABLET (COZAAR) PO ONE (11:00)
[2022-01-09] MEDS: MORPHINE 2 MG/ML INJ. SYRINGE IVP PRN (11:38)
[2022-01-09 12:00] LABS: ERYTHROCYTE SEDIMENTATION RATE 95 MM/HR (0-20)
[2022-01-09] MEDS ORDERED: VERAPAMIL HCL 180 MG TABLET.SA PO ONE (12:15)
[2022-01-09] MEDS: CEFEPIME 2 GM in D5W 100 ML IV SCH (12:31)
[2022-01-09] MEDS: HYDROcodone/ACETAMIN 10-325 MG TAB PO PRN ×2 (13:48→22:03)
--- NOTE | 2022-01-09 14:13 | NUR ---
Dietitian Recommendations * Continue 2 gm Na, puree, NTL diet (ONS Ensure Enlive TID comes standard w/ puree diet; ONS yields 1050 kcal/day, 60 gm protein/day) * Maximum encouragement at meal times TID LP, RD Please refer to Nutrition Assessment for details. Addendum: 01/09/22 at [address] Amended: Links added.
[2022-01-09] MEDS: GEMFIBROZIL 600 MG TABLET (LOPID) PO SCH (17:09)
[2022-01-09] MEDS: RIVAROXABAN 15 MG TABLET PO SCH (17:09)
--- NOTE | 2022-01-09 19:00 | NUR ---
during shift notified dr grey of patient confusion and dr lee orderd eeg and mri but mri to be done in AM since mri had left prior to exam being ordered, educated daughter that patietn would benefit from ngt but daughter is refusing at this time. endorsed continuation of care to night time nanny.
--- NOTE | 2022-01-09 19:12 | NUR ---
Bedside report received from Devan RN met pt awake alert to person, place eyes open tracking follows minimal command slow verbal response, moaning denies pain no sign of distress noted, AFIB on the monitor HR in 40's to 50'S blood pressure stable, Oxygen via high flow nasal canulla 30lters/90% O2 sat 94% no sign of shortness of breadth noted, low appetite as per report received, shaffer to gravity adequate urine 400cc emptied, nohemi and shaffer care. Partial bath given moderate brown stool and pt repositioned for comfort. Pt's daughter Coleen also present at the bedside education on care plan done and she verbalized understanding, pt is confused with response will continue to reorient to immediate environment, call light at reach bed in low position, close monitoring and emotional support to alleviates anxiety.
--- NOTE | 2022-01-09 20:31 | NUR ---
MRI form completed by pt's daughter Coleen.
[2022-01-09] MEDS ORDERED: CALCIUM CARBONATE/VITAMIN D3 1 TAB TABLET PO SCH (21:00)
[2022-01-09] MEDS ORDERED: MIRTAZAPINE 15 MG TABLET PO SCH (21:00)
[2022-01-09] MEDS: FUROSEMIDE 20 MG TABLET PO SCH (21:53)
[2022-01-09] MEDS: GABAPENTIN 300 MG CAPSULE PO SCH (21:53)
[2022-01-09] MEDS: D5/0.45 NS 1,000 ML IV SCH (21:54)
[2022-01-10] VITALS (24 sets, daily range): BP systolic 110–198
[2022-01-10] MEDS: hydrALAZINE HCL 20 MG/ML VIAL IVP PRN ×3 (02:19→21:18)
[2022-01-10] MEDS: ALBUTEROL SULFATE 0.083% 2.5 MG/3 ML VIAL.NEB INH SCH ×5 (04:29→20:09)
[2022-01-10] MEDS: LOSARTAN POTASSIUM 50 MG TABLET (COZAAR) PO SCH (06:04)
[2022-01-10] MEDS: VERAPAMIL HCL 180 MG TABLET.SA PO SCH (06:05)
[2022-01-10] MEDS: GEMFIBROZIL 600 MG TABLET (LOPID) PO SCH ×2 (06:09→17:00)
[2022-01-10] MEDS: LEVOTHYROXINE SODIUM 0.15 MG TABLET PO SCH (06:09)
--- NOTE | 2022-01-10 06:45 | NUR ---
Elevated blood pressure but next dose of Hydralazine due at 0800, pulled out all the blood pressure meds crushed in apple sauce but pt refused. Pt's daughter notified, because she is willing to come to the hospital and feed pt considering if is emergency, so NGT can be inserted, Dr Claudia Castro notified order received to insert NGT and restraints. NGT successfully inserted via RT nares chest x-ray pending. Addendum: 01/10/22 at 0813 by [employer] applied psychology teacher Blood pressure were 196/76 hr 71 @0556 B/P 194/70 HR 66 @0606 B/P 192/65
[2022-01-10 06:46] LABS: BASOPHILS % (AUTO) 0.2 % (0.0-2.0); HEMATOCRIT 33.8 % (36-48); HEMOGLOBIN 11.3 g/dL (12.0-16.0); LYMPHOCYTES # (AUTO) 0.8 K/uL (1.0-5.5); LYMPHOCYTES % (AUTO) 8.4 % (20.5-51.5); MEAN CORPUSCULAR HEMOGLOBIN 29 pg (27-31); MEAN CORPUSCULAR HGB CONC 33 % (32-36); MEAN CORPUSCULAR VOLUME 87 fL (79.0-98.0); MONOCYTES # (AUTO) 0.4 K/uL (0.0-1.0); MONOCYTES % (AUTO) 4.7 % (1.7-9.3); NEUTROPHILS # (AUTO) 7.8 K/uL (1.8-7.7); NEUTROPHILS % (AUTO) 86.7 % (40.0-70.0); PLATELET COUNT (AUTO) 375 K/uL (130-430); RED BLOOD CELL COUNT(AUTO) 3.86 MIL/uL (4.2-6.2); RED CELL DISTRIBUTION WIDTH 13.6 % (9.0-15.0)
[2022-01-10 07:19] LABS: ALANINE AMINOTRANSFERASE 29 U/L (12-78); ALBUMIN 3.1 g/dL (3.4-4.8); ANION GAP 14 (5-15); ASPARTATE AMINOTRANSFERASE 11 U/L (10-37); C-REACTIVE PROTEIN QUANT 14.6 mg/dL (0-0.5); CALCIUM 8.8 mg/dL (8.4-11.0); CHLORIDE 116 mmol/L (98-107); CREATININE 1.14 mg/dL (0.55-1.30); GLUCOSE 136 mg/dL (70-99); PHOSPHORUS 2.8 mg/dL (2.7-4.5); POTASSIUM 3.2 mmol/L (3.5-5.1); SODIUM SERUM 152 mmol/L (136-145); TOTAL BILIRUBIN 0.2 mg/dL (0.0-1.0); UREA NITROGEN, BLOOD 49 mg/dL (8-21)
--- NOTE | 2022-01-10 07:45 | NUR ---
Change of shift report at the bedside given to Angelo EDWARDS for continuity of care mentioned to him MRI pending to be done questionaire completed by pt's daughter in the chart, pt unable to swallow her medications low appetite, confused AFIB on the monitor.
[2022-01-10] MEDS: IPRATROPIUM BROM 0.5 MG/2.5 ML VIAL.NEB (ATROVENT) INH SCH ×4 (07:51→20:10)
--- NOTE | 2022-01-10 07:54 | NUR ---
Chest x ray done at the bedside for NGT placemenyt verification
--- NOTE | 2022-01-10 07:55 | NUR ---
rt notes 0755 Titrated fio2 to 80%. Pt saturating 94%. will continue to monitor pt. will notify RN.
[2022-01-10] MEDS: metroNIDAZOLE 500 mg/NS 100 ML IV SCH (08:00)
--- NOTE | 2022-01-10 08:00 | NUR ---
TREGISTRY RN MELE CULVER IS IN CHARGE OF THIS PT//MW
[2022-01-10] MEDS ORDERED: CALCITONIN SALMON,SYNTHETIC 3.7 ML SPRAY.PUMP NS SCH (09:00)
[2022-01-10] MEDS: POTASSIUM CHLORIDE 10 MEQ TAB.PRT.SR PO SCH (09:00)
[2022-01-10] MEDS: GABAPENTIN 300 MG CAPSULE PO SCH ×2 (09:00→21:16)
[2022-01-10] MEDS: FUROSEMIDE 20 MG TABLET PO SCH ×2 (09:00→21:18)
[2022-01-10] MEDS: ATENOLOL 25 MG TABLET(TENORMIN) PO SCH (09:00)
[2022-01-10] MEDS ORDERED: ATENOLOL 25 MG TABLET(TENORMIN) PO SCH (09:00)
[2022-01-10] MEDS: DULoxetine HCL 30 MG CAPSULE.DR (CYMBALTA) PO SCH (09:00)
[2022-01-10] MEDS: D5W 1,000 ML IV SCH ×2 (09:15→21:08)
[2022-01-10 11:17] LABS: ERYTHROCYTE SEDIMENTATION RATE 91 MM/HR (0-20)
[2022-01-10] MEDS: DEXAMETHASONE SOD PHOSPHATE 10 MG/ML VIAL IVP SCH (11:30)
--- NOTE | 2022-01-10 11:41 | NUR ---
Nutrition F/U Admitting Diagnosis CHF, respiratory failure Reviewed Pertinent Medical/Surgical Hx Medical Record Patient Primary RN Medical History Comment: PMH: CAD, COPD, HTN, overactive bladder, OA, fibromyalgia, and CHF per physician notes SARS-CoV-2 Ag (Rapid) Negative 01/07 Subjective Information: RD attended ICU rounds this morning. Pt was seen resting in bed, eyes closed, NGT present. Primary RN reported that pt remains on 90% HFNC w/ poor appetite for PO. He also reported that though pt passed ST swallow eval 01/08, pt seems to be refusing anything PO, therefore, NGT was placed overnight. Skin intact and plan for MRI per RN report. RD relayed TF rec via phone call this morning as well as consideration of D/C D5%W when EN support is initiated, RN acknowledged. Per EMR review, no new PO intake records other than previously documented PO intakes <25% x1 meal; active bowel sounds; pt remains on HFNC; Mansoor scale: 13, no PIs noted; 1+ pitting edema to RLE. Pt is not meeting nutritional needs. Current Diet Order/Nutrition Support: 2 gm Na, puree, NTL x2 days Patient/Significant Other Unable To Verbalize Education Provided Not Indicated Pertinent Medications: decadron, D5%W IV at 75 ml/hr (306 kcal/day), synthroid, lasix, xarelto, morphine Pertinent Labs: Na 152 H, BG 136 H, BUN 49 H, CRP 14.6 H, BNP 939 H Height (Feet) 5 feet Height (Inches) 4.00 inches Weight (Pounds) 140 pounds -- stable since 01/09 Patient Weight 63.503 kg Body Mass Index 24.03 kg/m2 %IBW [address] [place]/Adjusted Body Weight 120#/54.5 kg Recent Weight Change Unable to verify Weight Status Appropriate Food Allergies Unable to verify Usual Diet At Home Soft per nursing nutritional screening assessment Current % PO Negligible <25% Estimated Energy Expenditure (kcals/day) 0685-2622 (30-35 kcal/kg CBW d/t respiratory failure) Estimated Protein Required (g/day) 76-95 (1.2-1.5 gm/kg CBW d/t respiratory failure) Estimated Fluid Required (l/day) Per physician d/t CHF Problem/Etiology/Signs/Symptoms Suboptimal nutritional intakes R/T lack of appetite a/w mentation and respiratory status AEB negligible PO intakes, confusion/lethargy, and need for 100% HFNC. *Ongoing w/ plan to initiate EN support Expected Outcomes/Goals - Monitor appetite and PO intakes w/ goal of pt meeting >50% of estimated nutritional needs, labs trending WNL, normal GI function, and skin integrity/wt maintenance Dietitian Recommendations * Jevity 1.5 at 55 ml/hr (goal rate), Free Water Flush: per physician (d/t Hx of CHF) via NGT Provides: 1980 kcal/day, 84 gm protein/day, and 1003 ml free water/day Meets: 104% of lower end of estimated caloric needs and 88% of upper end of estimated protein needs * Consider D/C D5%W IV at 75 ml/hr to promote improved glycemic control Follow Up High Risk: F/U in 2-3 days
--- NOTE | 2022-01-10 11:48 | NUR ---
Dietitian Recommendations * Jevity 1.5 at 55 ml/hr (goal rate), Free Water Flush: per physician (d/t Hx of CHF) via NGT Provides: 1980 kcal/day, 84 gm protein/day, and 1003 ml free water/day Meets: 104% of lower end of estimated caloric needs and 88% of upper end of estimated protein needs * Consider D/C D5%W IV at 75 ml/hr to promote improved glycemic control LP, RD Please refer to Nutrition F/U for details.
--- NOTE | 2022-01-10 12:00 | NUR ---
rt notes 1200 Changed Vapotherm water. no distress noted. Spare vapotherm water at bedside.
[2022-01-10] MEDS: HYDROcodone/ACETAMIN 10-325 MG TAB PO PRN ×2 (13:24→21:17)
[2022-01-10] MEDS: CEFEPIME 2 GM in D5W 100 ML IV SCH (13:25)
--- NOTE | 2022-01-10 13:40 | NUR ---
rt notes 1340 Titrated FIO2 to .75 , pt saturating 93% will continue to monitor pt.
--- NOTE | 2022-01-10 15:00 | NUR ---
PT TF STARTED ORDERED/DAUGHTER AT BEDSIXDE//PT IN GOOD SPIRITS BUT REFFUSING ALL ORALS//MW
--- NOTE | 2022-01-10 19:15 | NUR ---
Change of shift report received Michael EDWARDS continuity of care,met pt awake alert to place follows command pleasantly confused no agitation, said "she is hard of hearing" also that she lives across from [facility]. Vitals signs stable afebrile oxygenation via high flow nasal canulla 30lters/ 75% FIO2 O2 sat 94% no sign of shortness of breadth noted, NGT placement checked and verified by auscultation no residual increased Jevity 1.5 to 30ml/hr. nohemi and shaffer care pt repositioned for comfort. Pt education on care plan, reorientation, close monitoring for safety and will continue to monitor and treat as per care plan.
[2022-01-10] MEDS: RIVAROXABAN 15 MG TABLET PO SCH (19:17)
--- NOTE | 2022-01-10 20:30 | NUR ---
Family at the bedside updates education on pt's condition, care plan, restraints, ongoing treatments and they verbalized understanding, support at the bedside As at this time pt awake alert recognized her family called them by names speech more clearer and sensible
[2022-01-10] MEDS ORDERED: MEROPENEM 500 MG VIAL IV ONE ×2 (21:32→21:34)
[2022-01-10] MEDS: MEROPENEM 500 MG IVPB PREMIX 50 ML IV SCH (22:00)
[2022-01-11] VITALS (24 sets, daily range): BP systolic 133–175
--- NOTE | 2022-01-11 02:00 | NUR ---
Complete bed bath done with CHG,skin checked foam applied sacral/coccyx oral and shaffer care done.Pt tolerated well no complain.
[2022-01-11] MEDS: IPRATROPIUM BROM 0.5 MG/2.5 ML VIAL.NEB (ATROVENT) INH SCH ×6 (02:14→19:51)
[2022-01-11] MEDS: ALBUTEROL SULFATE 0.083% 2.5 MG/3 ML VIAL.NEB INH SCH ×6 (02:15→19:50)
[2022-01-11] MEDS: MEROPENEM 500 MG IVPB PREMIX 50 ML IV SCH ×3 (06:00→22:00)
[2022-01-11 06:42] LABS: BASOPHILS % (AUTO) 0.3 % (0.0-2.0); EOSINOPHILS % (AUTO) 0.4 % (0.0-4.0); HEMATOCRIT 36.1 % (36-48); HEMOGLOBIN 11.8 g/dL (12.0-16.0); LYMPHOCYTES # (AUTO) 1.3 K/uL (1.0-5.5); MEAN CORPUSCULAR HEMOGLOBIN 29 pg (27-31); MEAN CORPUSCULAR HGB CONC 33 % (32-36); MEAN CORPUSCULAR VOLUME 87 fL (79.0-98.0); MONOCYTES # (AUTO) 1.1 K/uL (0.0-1.0); MONOCYTES % (AUTO) 8.5 % (1.7-9.3); NEUTROPHILS # (AUTO) 10.2 K/uL (1.8-7.7); NEUTROPHILS % (AUTO) 80.8 % (40.0-70.0); PLATELET COUNT (AUTO) 368 K/uL (130-430); RED BLOOD CELL COUNT(AUTO) 4.13 MIL/uL (4.2-6.2); RED CELL DISTRIBUTION WIDTH 14.1 % (9.0-15.0); WHITE BLOOD COUNT (AUTO) 12.7 K/uL (4.8-10.8)
[2022-01-11 06:56] LABS: ANION GAP 12 (5-15); C-REACTIVE PROTEIN QUANT 4.7 mg/dL (0-0.5); CALCIUM 8.6 mg/dL (8.4-11.0); CHLORIDE 113 mmol/L (98-107); CREATININE 1.02 mg/dL (0.55-1.30); GLUCOSE 127 mg/dL (70-99); SODIUM SERUM 149 mmol/L (136-145); UREA NITROGEN, BLOOD 40 mg/dL (8-21)
[2022-01-11] MEDS: GEMFIBROZIL 600 MG TABLET (LOPID) PO SCH ×2 (07:00→17:06)
[2022-01-11 07:18] LABS: POTASSIUM 2.7 mmol/L (3.5-5.1)
--- NOTE | 2022-01-11 07:20 | NUR ---
Bedside report given to Angelo EDWARDS continuity of care as at this time pt awake alert vitals signs stable denies pain, no sign fo distress so no changes in care plan and condition.
[2022-01-11 08:57] LABS: ERYTHROCYTE SEDIMENTATION RATE 77 MM/HR (0-20)
[2022-01-11] MEDS: DULoxetine HCL 30 MG CAPSULE.DR (CYMBALTA) PO SCH (09:00)
[2022-01-11] MEDS: GABAPENTIN 300 MG CAPSULE PO SCH ×2 (09:29→21:58)
[2022-01-11] MEDS: ATENOLOL 25 MG TABLET(TENORMIN) PO SCH (09:30)
[2022-01-11] MEDS: LOSARTAN POTASSIUM 50 MG TABLET (COZAAR) PO SCH (09:30)
[2022-01-11] MEDS: LEVOTHYROXINE SODIUM 0.15 MG TABLET PO SCH (09:31)
[2022-01-11] MEDS: POTASSIUM CHLORIDE 10 MEQ TAB.PRT.SR PO SCH (09:31)
[2022-01-11] MEDS: FUROSEMIDE 20 MG TABLET PO SCH ×2 (09:32→21:58)
[2022-01-11] MEDS: VERAPAMIL HCL 180 MG TABLET.SA PO SCH (09:34)
[2022-01-11] MEDS ORDERED: POTASSIUM CHLORIDE 40 MEQ in 0.45% NS 250 ML IV ONE (11:00)
[2022-01-11] MEDS: DEXAMETHASONE SOD PHOSPHATE 10 MG/ML VIAL IVP SCH (11:30)
--- NOTE | 2022-01-11 14:13 | NUR ---
MELE [place]ENFIELD NURSE IS IN CHARGE OF PT TODAY, PT VERY LUCID, IRREGULARR HR THAT IS VERY CHLOÉ AT TIMES, BUT PT SHOWS NO S/S OF BRADYCARDIA:NO HYPOTENSION, FATIGUE, PALPITATIONS OR CHEST PAIN/MD ZELAYA AWARE//PT TOLERATING TF AND IN ZER4O DISTRESS//MW
[2022-01-11] MEDS: RIVAROXABAN 15 MG TABLET PO SCH (17:06)
[2022-01-12] VITALS (24 sets, daily range): BP systolic 146–184
[2022-01-12] MEDS: hydrALAZINE HCL 20 MG/ML VIAL IVP PRN ×3 (04:31→21:36)
[2022-01-12] MEDS: ALBUTEROL SULFATE 0.083% 2.5 MG/3 ML VIAL.NEB INH SCH ×7 (04:32→22:30)
[2022-01-12] MEDS: IPRATROPIUM BROM 0.5 MG/2.5 ML VIAL.NEB (ATROVENT) INH SCH ×7 (04:32→22:30)
[2022-01-12] MEDS: LORazepam 2 MG/ML VIAL IVP PRN (04:54)
--- NOTE | 2022-01-12 06:00 | NUR ---
--RECEIVED PT A/OX2-PT HAS BEEN CONFUSED. PT CONT. IN SOFT RESTRNTS DUE ATTEMPT TO PULL LINES. PT HAS BEEN ON HI-FLOW @75%. NOW FIO2 IS DOWN TO 50% BY RTX THIS AM. PT KD WELL WITH POX OF 93%. IV I/P VIA LEFT ARM. PT HAS BEEN IN A.FIB. PT HAS BEEN AFEBRILE. PT DENIES S/S OF PAIN. F/C I/P-U/O ADEQ-900CC OUT/RADHA-CLR. NO STOOL. BATH AND LINEN CHANGE DONE. PT'S DAUGHTER AND SON-IN LAW HAVE BEEN IN TO VISIT(EARLIER IN SHIFT). PT WAS VERY AGITATED AT APROX 0500. PT MED WITH ATIVAN 1MG IVP. PT SLEEPING QUIETLY AFTER MED. PT ALSO MED FOR BP SYST> 160 WITH APPRESOLINE 20MG IVP AT APROX 0500. BP < 160 AFTER MED. PT ENDORSED TO JERRY SHABAZZ IN STABLE COND. KIRILL EDWARDS
[2022-01-12] MEDS: MEROPENEM 500 MG IVPB PREMIX 50 ML IV SCH ×3 (06:27→21:27)
[2022-01-12] MEDS: LEVOTHYROXINE SODIUM 0.15 MG TABLET PO SCH (07:00)
[2022-01-12] MEDS: GEMFIBROZIL 600 MG TABLET (LOPID) PO SCH ×2 (07:00→18:06)
[2022-01-12 07:04] LABS: BASOPHILS % (AUTO) 0.1 % (0.0-2.0); HEMATOCRIT 36.3 % (36-48); HEMOGLOBIN 12.2 g/dL (12.0-16.0); LYMPHOCYTES # (AUTO) 1.1 K/uL (1.0-5.5); LYMPHOCYTES % (AUTO) 10.7 % (20.5-51.5); MEAN CORPUSCULAR HEMOGLOBIN 29 pg (27-31); MEAN CORPUSCULAR HGB CONC 34 % (32-36); MEAN CORPUSCULAR VOLUME 86 fL (79.0-98.0); MONOCYTES # (AUTO) 0.6 K/uL (0.0-1.0); MONOCYTES % (AUTO) 5.9 % (1.7-9.3); NEUTROPHILS # (AUTO) 8.8 K/uL (1.8-7.7); NEUTROPHILS % (AUTO) 83.3 % (40.0-70.0); PLATELET COUNT (AUTO) 369 K/uL (130-430); RED CELL DISTRIBUTION WIDTH 13.8 % (9.0-15.0); WHITE BLOOD COUNT (AUTO) 10.6 K/uL (4.8-10.8)
[2022-01-12 08:13] LABS: ANION GAP 12 (5-15); C-REACTIVE PROTEIN QUANT 3.3 mg/dL (0-0.5); CALCIUM 8.8 mg/dL (8.4-11.0); CHLORIDE 116 mmol/L (98-107); CREATININE 1.03 mg/dL (0.55-1.30); GLUCOSE 121 mg/dL (70-99); POTASSIUM 3.7 mmol/L (3.5-5.1); SODIUM SERUM 152 mmol/L (136-145); UREA NITROGEN, BLOOD 38 mg/dL (8-21)
[2022-01-12] MEDS: amLODIPine BESYLATE 5 MG TABLET PO SCH (08:31)
[2022-01-12] MEDS: LOSARTAN POTASSIUM 50 MG TABLET (COZAAR) PO SCH (08:32)
[2022-01-12] MEDS: GABAPENTIN 300 MG CAPSULE PO SCH ×2 (08:33→21:13)
[2022-01-12] MEDS: FUROSEMIDE 20 MG TABLET PO SCH ×2 (08:33→21:12)
[2022-01-12] MEDS: POTASSIUM CHLORIDE 10 MEQ TAB.PRT.SR PO SCH (08:34)
[2022-01-12] MEDS: DULoxetine HCL 30 MG CAPSULE.DR (CYMBALTA) PO SCH (08:34)
[2022-01-12] MEDS: VERAPAMIL HCL 180 MG TABLET.SA PO SCH (08:38)
[2022-01-12] MEDS ORDERED: amLODIPine BESYLATE 5 MG TABLET PO SCH (09:00)
[2022-01-12 10:13] LABS: ERYTHROCYTE SEDIMENTATION RATE 77 MM/HR (0-20)
[2022-01-12] MEDS: DEXAMETHASONE SOD PHOSPHATE 10 MG/ML VIAL IVP SCH (12:44)
[2022-01-12] MEDS ORDERED: METOPROLOL TARTRATE 25 MG TABLET PO ONE (17:00)
[2022-01-12] MEDS: RIVAROXABAN 15 MG TABLET PO SCH (18:05)
--- NOTE | 2022-01-12 18:22 | NUR ---
PT GIVEN ALPRESOLINE FOR HIGH BP/ PT REMAINS VERY FORGETFUL AND ALWAYS REQUESTS WATER BUT TOO EASILY ASPIRATES/OTHERWISE ZERO BRADYCARDIC EPISODES TODAY//MW
[2022-01-13] VITALS (24 sets, daily range): BP systolic 138–185
[2022-01-13] MEDS: LORazepam 2 MG/ML VIAL IVP PRN (03:30)
[2022-01-13] MEDS: ALBUTEROL SULFATE 0.083% 2.5 MG/3 ML VIAL.NEB INH SCH ×6 (03:45→23:20)
[2022-01-13] MEDS: IPRATROPIUM BROM 0.5 MG/2.5 ML VIAL.NEB (ATROVENT) INH SCH ×6 (03:45→23:20)
[2022-01-13] MEDS: MEROPENEM 500 MG IVPB PREMIX 50 ML IV SCH ×3 (06:00→22:17)
--- NOTE | 2022-01-13 06:00 | NUR ---
--PT CONT. WITH HI-FLOW AT 50%. PT KD WELL WITH POX OF 92-95%. RESPS REG/UNLAB. PT HAS BEEN CONFUSED THIS SHIFT AND WAS ATTEMPTING TO PULL OUT NGT AND O2. SOFT RESTRAINTS REAPPLIED. PT ABLE TO FOLLOW SOME SIMPLE COMMDS. PT'S DAUGHTER IN TO VISIT PT. IV I/P VIA LEFT PIV. PT HAS NGT INTACT TO [facility]. PT KD WELL. RESID HAS BEEN 10-20CC. F/C I/P. U/O ADEQ-800CC/RADHA-CLR. NO STOOL. PT HAD ELEVATED BP->170 SYST. PT MED WITH APRESOLINE 20MG IVP. PT ALSO HAD C/O GEN. PAIN-PT MED WITH MS 2MG IVP. PT SLEEPING AFTER MED BUT THEN PT WOKE UP YELLING-THEN PT MED WITH ATIVAN 1MG IVP. PT SLEEPING QUIETLY AFTER MED. PT ENDORSED TO JERRY AMES IN STABLE BUT GUARDED COND. KIRILL EDWARDS
[2022-01-13] MEDS: LEVOTHYROXINE SODIUM 0.15 MG TABLET PO SCH (06:38)
[2022-01-13] MEDS: GEMFIBROZIL 600 MG TABLET (LOPID) PO SCH ×2 (06:39→17:34)
[2022-01-13 06:43] LABS: BASOPHILS % (AUTO) 0.1 % (0.0-2.0); HEMATOCRIT 38.8 % (36-48); HEMOGLOBIN 12.9 g/dL (12.0-16.0); LYMPHOCYTES # (AUTO) 1.7 K/uL (1.0-5.5); LYMPHOCYTES % (AUTO) 11.5 % (20.5-51.5); MEAN CORPUSCULAR HEMOGLOBIN 29 pg (27-31); MEAN CORPUSCULAR HGB CONC 33 % (32-36); MEAN CORPUSCULAR VOLUME 87 fL (79.0-98.0); MONOCYTES % (AUTO) 6.6 % (1.7-9.3); NEUTROPHILS # (AUTO) 12.1 K/uL (1.8-7.7); NEUTROPHILS % (AUTO) 81.8 % (40.0-70.0); PLATELET COUNT (AUTO) 427 K/uL (130-430); RED BLOOD CELL COUNT(AUTO) 4.45 MIL/uL (4.2-6.2); RED CELL DISTRIBUTION WIDTH 13.8 % (9.0-15.0); WHITE BLOOD COUNT (AUTO) 14.8 K/uL (4.8-10.8)
[2022-01-13 06:52] LABS: ALANINE AMINOTRANSFERASE 8 U/L (12-78); ALBUMIN 2.8 g/dL (3.4-4.8); ANION GAP 12 (5-15); ASPARTATE AMINOTRANSFERASE 10 U/L (10-37); C-REACTIVE PROTEIN QUANT 1.4 mg/dL (0-0.5); CALCIUM 8.5 mg/dL (8.4-11.0); CHLORIDE 115 mmol/L (98-107); CREATININE 1.06 mg/dL (0.55-1.30); GLUCOSE 148 mg/dL (70-99); PHOSPHORUS 4.1 mg/dL (2.7-4.5); POTASSIUM 3.4 mmol/L (3.5-5.1); SODIUM SERUM 151 mmol/L (136-145); TOTAL BILIRUBIN 0.5 mg/dL (0.0-1.0); UREA NITROGEN, BLOOD 37 mg/dL (8-21)
[2022-01-13] MEDS: METOPROLOL TARTRATE 25 MG TABLET PO SCH ×2 (08:40→21:00)
[2022-01-13] MEDS: DULoxetine HCL 30 MG CAPSULE.DR (CYMBALTA) PO SCH (08:41)
[2022-01-13] MEDS: VERAPAMIL HCL 180 MG TABLET.SA PO SCH (08:41)
[2022-01-13] MEDS: LOSARTAN POTASSIUM 50 MG TABLET (COZAAR) PO SCH (08:42)
[2022-01-13] MEDS: FUROSEMIDE 20 MG TABLET PO SCH ×2 (08:45→21:00)
[2022-01-13] MEDS: amLODIPine BESYLATE 5 MG TABLET PO SCH (08:45)
[2022-01-13] MEDS: GABAPENTIN 300 MG CAPSULE PO SCH ×2 (08:53→21:00)
[2022-01-13] MEDS: POTASSIUM CHLORIDE 10 MEQ TAB.PRT.SR PO SCH (09:00)
[2022-01-13 09:18] LABS: ERYTHROCYTE SEDIMENTATION RATE 60 MM/HR (0-20)
--- NOTE | 2022-01-13 11:00 | NUR ---
DAUGHTER CAME IN TO VISIT PT. PT'S INFO UPDATED TO PT.
--- NOTE | 2022-01-13 11:35 | NUR ---
PT GOT BIG BM, LOOSE STOOL. WITH OTHER NURSE ASSISTANCE, PT WAS CLEANED, LINEN CHANGED TOTALLY.
[2022-01-13] MEDS: DEXAMETHASONE SOD PHOSPHATE 10 MG/ML VIAL IVP SCH (12:40)
[2022-01-13] MEDS: RIVAROXABAN 15 MG TABLET PO SCH (17:33)
--- NOTE | 2022-01-13 18:34 | NUR ---
BP IS GOING TO HIGH SPB OVER 180. DR. ZELAYA WAS PAGED BY SECRETORY.
[2022-01-13] MEDS: hydrALAZINE HCL 20 MG/ML VIAL IVP PRN (20:08)
[2022-01-14] VITALS (24 sets, daily range): BP systolic 125–180
[2022-01-14] MEDS: IPRATROPIUM BROM 0.5 MG/2.5 ML VIAL.NEB (ATROVENT) INH SCH ×6 (03:50→23:22)
[2022-01-14] MEDS: ALBUTEROL SULFATE 0.083% 2.5 MG/3 ML VIAL.NEB INH SCH ×6 (03:50→23:22)
[2022-01-14] MEDS: MEROPENEM 500 MG IVPB PREMIX 50 ML IV SCH ×3 (05:39→21:52)
--- NOTE | 2022-01-14 06:00 | NUR ---
1999--599--PT CONT WITH HI FLOW AT 60%. IV I/P VIA LEFT ARM. PT HAS BEEN IN A.FIB WITH HR <100. PT HAS BEEN AFEBRILE. PT CONT TO BE CONFUSED BUT FOLLOWS S.COMMDS. PT MED WITH MS 2MG IVP. PT STATES RELIEF AFTER MED FOR GEN. PAIN. F/C I/P-U/O 1000L/RADHA-SL CLOUDY. PT HAD MOD BRN STOOL/SOFT X1. AM LABS DONE. BATH AND LINEN CHANGE DONE. PT'S BP UP TO 180'S. PT MED WITH APRESOLINE 20MG IVP. BP <160 AFTER MED. PT ENDORSED TO JERRY JIMENEZ. GEN COND HAS BEEN STABLE/GUARDED. KIRILL EDWARDS
--- NOTE | 2022-01-14 06:00 | NUR ---
--FURTHER NOTE--PT HAS BEEN IN SOFT RESTRAINTS-ATTEMPTS TO PULL IV AND TUBES. KIRILL RN
[2022-01-14] MEDS: MORPHINE 2 MG/ML INJ. SYRINGE IVP PRN (06:06)
[2022-01-14 06:27] LABS: BASOPHILS % (AUTO) 0.3 % (0.0-2.0); EOSINOPHILS # (AUTO) 0.1 K/uL (0.0-0.4); EOSINOPHILS % (AUTO) 0.9 % (0.0-4.0); HEMATOCRIT 40.8 % (36-48); HEMOGLOBIN 13.3 g/dL (12.0-16.0); LYMPHOCYTES # (AUTO) 1.6 K/uL (1.0-5.5); LYMPHOCYTES % (AUTO) 9.7 % (20.5-51.5); MEAN CORPUSCULAR HEMOGLOBIN 28 pg (27-31); MEAN CORPUSCULAR HGB CONC 33 % (32-36); MEAN CORPUSCULAR VOLUME 87 fL (79.0-98.0); MONOCYTES % (AUTO) 6.2 % (1.7-9.3); NEUTROPHILS # (AUTO) 13.4 K/uL (1.8-7.7); NEUTROPHILS % (AUTO) 82.9 % (40.0-70.0); PLATELET COUNT (AUTO) 431 K/uL (130-430); RED BLOOD CELL COUNT(AUTO) 4.71 MIL/uL (4.2-6.2); RED CELL DISTRIBUTION WIDTH 13.9 % (9.0-15.0); WHITE BLOOD COUNT (AUTO) 16.2 K/uL (4.8-10.8)
[2022-01-14 06:43] LABS: ANION GAP 12 (5-15); CALCIUM 8.8 mg/dL (8.4-11.0); CHLORIDE 111 mmol/L (98-107); CREATININE 0.89 mg/dL (0.55-1.30); GLUCOSE 136 mg/dL (70-99); POTASSIUM 3.7 mmol/L (3.5-5.1); SODIUM SERUM 148 mmol/L (136-145); UREA NITROGEN, BLOOD 36 mg/dL (8-21)
[2022-01-14 06:58] LABS: C-REACTIVE PROTEIN QUANT < 0.2 mg/dL (0-0.5)
[2022-01-14] MEDS: GEMFIBROZIL 600 MG TABLET (LOPID) PO SCH ×2 (07:00→16:32)
[2022-01-14] MEDS: LEVOTHYROXINE SODIUM 0.15 MG TABLET PO SCH (07:00)
--- NOTE | 2022-01-14 07:19 | NUR ---
OPENING NOTE: REPORT RC'VD FROM OUTGOING NOC RN, ALL CARES ASSUMED.
--- NOTE | 2022-01-14 08:00 | NUR ---
DR. MARQUIS MAKING ROUNDS, BEDSIDE REPORT GIVEN.
[2022-01-14] MEDS: POTASSIUM CHLORIDE 10 MEQ TAB.PRT.SR PO SCH (08:22)
[2022-01-14] MEDS: VERAPAMIL HCL 180 MG TABLET.SA PO SCH (08:22)
[2022-01-14] MEDS: DULoxetine HCL 30 MG CAPSULE.DR (CYMBALTA) PO SCH (08:23)
[2022-01-14] MEDS: GABAPENTIN 300 MG CAPSULE PO SCH ×2 (08:23→21:48)
[2022-01-14] MEDS: METOPROLOL TARTRATE 25 MG TABLET PO SCH ×2 (08:23→21:49)
[2022-01-14] MEDS: FUROSEMIDE 20 MG TABLET PO SCH ×2 (08:23→21:50)
[2022-01-14] MEDS: amLODIPine BESYLATE 5 MG TABLET PO SCH (08:24)
[2022-01-14] MEDS: LOSARTAN POTASSIUM 50 MG TABLET (COZAAR) PO SCH (08:24)
--- NOTE | 2022-01-14 08:30 | NUR ---
MD MAKING ROUNDS, BEDSIDE REPORT GIVEN.
--- NOTE | 2022-01-14 09:30 | NUR ---
ORAL CARE PROVIDED, PT TOLERATED WELL. ICE CHIPS GIVEN. NO SIGNS OF COUGHING, DROOLING NOTED. PATIENT ANSWERS QUESTIONS APPROPRIATELY.
--- NOTE | 2022-01-14 11:00 | NUR ---
HIGH FLOW DECREASED BY RT TO 45%
--- NOTE | 2022-01-14 11:15 | NUR ---
RESTRAINTS D/C, PATIENT FOLLOWS SIMPLE COMMANDS, PATIENT NOT PULLING AT MEDICAL EQUIPMENT, PATIENT IS COOPERATIVE.
--- NOTE | 2022-01-14 11:21 | NUR ---
RN ROUNDS: REPOSITIONED WITH PILLOW SUPPORT, LARGE LOOSE BM, ELLIOTT-CARE PROVIDED, TAVARES CARE WITH CHG WIPES COMPLETED.
[2022-01-14] MEDS: DEXAMETHASONE SOD PHOSPHATE 10 MG/ML VIAL IVP SCH (11:26)
--- NOTE | 2022-01-14 12:18 | NUR ---
SON IN LAW AT BEDSIDE, ALL QUESTIONS ANSWERED.
[2022-01-14 12:23] LABS: ERYTHROCYTE SEDIMENTATION RATE 50 MM/HR (0-20)
--- NOTE | 2022-01-14 14:00 | NUR ---
NG TUBE REMOVED, ORDERS PLACED TO ADVANCE DIET TO PUREE WITH NECTAR THICK FLUIDS.
--- NOTE | 2022-01-14 16:00 | NUR ---
RN ROUNDS: REPOSITIONED WITH PILLOW SUPPORT, TAVARES CATHETER BAG EMPTIED AND BELOW LEVEL OF BLADDER. PATIENT STABLE AND DENIES PAIN AND OR DISCOMFORT. STABLE IN NO ACUTE DISTRESS AND OR DISCOMFORT. PATIENT REMAINS ON HIGH FLOW OXYGEN AT 45%, STABLE DENIES SOB.
[2022-01-14] MEDS: RIVAROXABAN 15 MG TABLET PO SCH (17:08)
--- NOTE | 2022-01-14 18:04 | NUR ---
ST EVALUATION COMPLETED. ST TX NOT INDICATED AT THIS TIME. RECOMMEND CONTINUE PO DIET OF PUREE/NECTAR THICK LIQUIDS WITH 1:1 FEEDER AND FULL ASPIRATION PRECAUTIONS.
--- NOTE | 2022-01-14 18:14 | NUR ---
LAB AT BEDSIDE DRAWING [address] DE SOUZA ORDER.
--- NOTE | 2022-01-14 18:55 | NUR ---
CLOSING NOTE: REPORT GIVEN TO NOC NURSE, ALL CARES ENDORSED.
[2022-01-15] VITALS (27 sets, daily range): BP systolic 111–188
[2022-01-15] MEDS: LORazepam 2 MG/ML VIAL IVP PRN (00:16)
[2022-01-15] MEDS: ALBUTEROL SULFATE 0.083% 2.5 MG/3 ML VIAL.NEB INH SCH ×6 (04:21→22:45)
[2022-01-15] MEDS: IPRATROPIUM BROM 0.5 MG/2.5 ML VIAL.NEB (ATROVENT) INH SCH ×6 (04:22→22:45)
--- NOTE | 2022-01-15 06:00 | NUR ---
--PT CONT. WITH HI-FLOW O2 @45%. PT KD WELL WITH POX OF 98%. RESPS ARE REG/UNLAB. PT HAS BEEN CONFUSED AT TIMES. PT HAS ALSO BEEN OFF RESTRAINTS THE ENTIRE SHIFT. PT HAS BEEN COOPERATIVE. PT TAKING ICE CHIPS AND SIPS OF WATER WELL. PT STATES SHE IS HUNGRY. PT HAS F/C WITH 1000L U/O-RADHA/CLR. PT DENIES ANY PAIN. PT BECAME VERY AGITATED AND WAS MED WITH ATIVAN AT APROX 0130. PS SLEEPING AFTER MED. PARTIAL BATH AND AM CARE GIVEN. PT HAD MOD AMT OF LIGHT BRN STOOL. SKIN CARE GIVEN. AM LABS DONE. PT ENDORSED TO JERRY LUNDBERG IN STABLE BUT GUARDED COND. KIRILL EDWARDS
[2022-01-15] MEDS: MEROPENEM 500 MG IVPB PREMIX 50 ML IV SCH ×3 (06:32→22:28)
[2022-01-15 06:54] LABS: HEMATOCRIT 39.1 % (36-48); HEMOGLOBIN 12.8 g/dL (12.0-16.0); MEAN CORPUSCULAR HEMOGLOBIN 28 pg (27-31); MEAN CORPUSCULAR HGB CONC 33 % (32-36); MEAN CORPUSCULAR VOLUME 87 fL (79.0-98.0); PLATELET COUNT (AUTO) 425 K/uL (130-430); RED CELL DISTRIBUTION WIDTH 13.7 % (9.0-15.0); WHITE BLOOD COUNT (AUTO) 14.7 K/uL (4.8-10.8)
[2022-01-15 07:09] LABS: ALANINE AMINOTRANSFERASE 14 U/L (12-78); ALBUMIN 2.8 g/dL (3.4-4.8); ANION GAP 12 (5-15); ASPARTATE AMINOTRANSFERASE 8 U/L (10-37); CALCIUM 8.6 mg/dL (8.4-11.0); CHLORIDE 110 mmol/L (98-107); CREATININE 0.83 mg/dL (0.55-1.30); GLUCOSE 107 mg/dL (70-99); SODIUM SERUM 147 mmol/L (136-145); TOTAL BILIRUBIN 0.7 mg/dL (0.0-1.0); UREA NITROGEN, BLOOD 35 mg/dL (8-21)
[2022-01-15 09:29] LABS: C-REACTIVE PROTEIN QUANT < 0.2 mg/dL (0-0.5)
[2022-01-15 09:33] LABS: ERYTHROCYTE SEDIMENTATION RATE 38 MM/HR (0-20)
[2022-01-15] MEDS: FUROSEMIDE 20 MG TABLET PO SCH ×2 (09:54→21:00)
[2022-01-15] MEDS: amLODIPine BESYLATE 5 MG TABLET PO SCH (09:55)
[2022-01-15] MEDS: GEMFIBROZIL 600 MG TABLET (LOPID) PO SCH ×2 (09:57→17:41)
[2022-01-15] MEDS: LOSARTAN POTASSIUM 50 MG TABLET (COZAAR) PO SCH (09:57)
[2022-01-15] MEDS: POTASSIUM CHLORIDE 10 MEQ TAB.PRT.SR PO SCH (09:58)
[2022-01-15] MEDS: METOPROLOL TARTRATE 25 MG TABLET PO SCH ×2 (09:58→21:00)
[2022-01-15] MEDS: DULoxetine HCL 30 MG CAPSULE.DR (CYMBALTA) PO SCH (09:59)
[2022-01-15] MEDS: GABAPENTIN 300 MG CAPSULE PO SCH ×2 (09:59→21:00)
[2022-01-15] MEDS: LEVOTHYROXINE SODIUM 0.15 MG TABLET PO SCH (09:59)
[2022-01-15 11:25] LABS: BAND % (MANUAL) 3 % (0-6); BASOPHILS % (MANUAL) 0 % (0-2); EOSINOPHILS % (MANUAL) 1 % (0-7); LYMPHOCYTES % (MANUAL) 11 % (20-46); MONOCYTES % (MANUAL) 6 % (0-11)
[2022-01-15] MEDS: VERAPAMIL HCL 180 MG TABLET.SA PO SCH (12:46)
[2022-01-15] MEDS: DEXAMETHASONE SOD PHOSPHATE 10 MG/ML VIAL IVP SCH (12:50)
[2022-01-15] MEDS: RIVAROXABAN 15 MG TABLET PO SCH (17:42)
[2022-01-16] VITALS (20 sets, daily range): BP systolic 124–174
[2022-01-16] MEDS: MORPHINE 2 MG/ML INJ. SYRINGE IVP PRN (00:44)
[2022-01-16] MEDS: LORazepam 2 MG/ML VIAL IVP PRN (02:46)
[2022-01-16] MEDS: ALBUTEROL SULFATE 0.083% 2.5 MG/3 ML VIAL.NEB INH SCH ×6 (03:25→23:15)
[2022-01-16] MEDS: IPRATROPIUM BROM 0.5 MG/2.5 ML VIAL.NEB (ATROVENT) INH SCH ×5 (03:25→23:15)
--- NOTE | 2022-01-16 06:00 | NUR ---
1999--599--PT CONT. WITH OXYIMISER @4L. PT KD WELL WITH POX OF 95-97%. PT HAS BEEN A/OX2-3. PT AGITATED AT TIMES AND WAS MED WITH ATIVAN 1MG SLOW IVP AT APROX 0300. PT SLEEPING QUIETLY AFTER MED. IV I/P VIA LEFT ARM. F/C I/P-800CC OUT. PT HAD SCANT AMT OF LIGHT BRN STOOL. BATH AND LINEN CHANGE DONE. PT ALSO C/O GEN PAIN. PT MED WITH MS 1MG IVP. PT SLEEPING QUIETLY AFTER MED. AM LABS PENDING. GEN. COND HAS BEEN STABLE. KIRILL EDWARDS
[2022-01-16] MEDS: MEROPENEM 500 MG IVPB PREMIX 50 ML IV SCH ×3 (06:34→20:56)
[2022-01-16] MEDS: LEVOTHYROXINE SODIUM 0.15 MG TABLET PO SCH (07:00)
[2022-01-16 07:01] LABS: BASOPHILS % (AUTO) 0.3 % (0.0-2.0); HEMATOCRIT 37.9 % (36-48); HEMOGLOBIN 12.6 g/dL (12.0-16.0); LYMPHOCYTES # (AUTO) 1.2 K/uL (1.0-5.5); LYMPHOCYTES % (AUTO) 10.7 % (20.5-51.5); MEAN CORPUSCULAR HEMOGLOBIN 29 pg (27-31); MEAN CORPUSCULAR HGB CONC 33 % (32-36); MEAN CORPUSCULAR VOLUME 87 fL (79.0-98.0); MONOCYTES # (AUTO) 0.4 K/uL (0.0-1.0); MONOCYTES % (AUTO) 3.3 % (1.7-9.3); NEUTROPHILS # (AUTO) 9.7 K/uL (1.8-7.7); NEUTROPHILS % (AUTO) 85.7 % (40.0-70.0); PLATELET COUNT (AUTO) 408 K/uL (130-430); RED BLOOD CELL COUNT(AUTO) 4.36 MIL/uL (4.2-6.2); RED CELL DISTRIBUTION WIDTH 13.9 % (9.0-15.0); WHITE BLOOD COUNT (AUTO) 11.4 K/uL (4.8-10.8)
[2022-01-16 07:02] LABS: ANION GAP 11 (5-15); C-REACTIVE PROTEIN QUANT 0.4 mg/dL (0-0.5); CALCIUM 7.9 mg/dL (8.4-11.0); CHLORIDE 107 mmol/L (98-107); GLUCOSE 115 mg/dL (70-99); PHOSPHORUS 5.1 mg/dL (2.7-4.5); POTASSIUM 4.2 mmol/L (3.5-5.1); SODIUM SERUM 141 mmol/L (136-145); UREA NITROGEN, BLOOD 38 mg/dL (8-21)
[2022-01-16] MEDS: VERAPAMIL HCL 180 MG TABLET.SA PO SCH (09:00)
[2022-01-16] MEDS: GABAPENTIN 300 MG CAPSULE PO SCH ×2 (09:48→20:56)
[2022-01-16] MEDS: METOPROLOL TARTRATE 25 MG TABLET PO SCH ×2 (09:49→20:56)
[2022-01-16] MEDS: LOSARTAN POTASSIUM 50 MG TABLET (COZAAR) PO SCH (09:50)
[2022-01-16] MEDS: FUROSEMIDE 20 MG TABLET PO SCH ×2 (09:51→20:54)
[2022-01-16] MEDS: DULoxetine HCL 30 MG CAPSULE.DR (CYMBALTA) PO SCH (09:51)
[2022-01-16] MEDS: POTASSIUM CHLORIDE 10 MEQ TAB.PRT.SR PO SCH (09:51)
[2022-01-16] MEDS: amLODIPine BESYLATE 5 MG TABLET PO SCH (09:52)
[2022-01-16] MEDS ORDERED: hydrALAZINE HCL 25 MG TABLET PO ONE (10:00)
--- NOTE | 2022-01-16 11:15 | NUR ---
RT NOTES 1115 Pt titrated from 4L Oxymizer to 3LNC, coached pt to do deep breathing through nose. pt saturating 94%. will continue to monitor pt.
[2022-01-16] MEDS: DEXAMETHASONE SOD PHOSPHATE 10 MG/ML VIAL IVP SCH (11:36)
[2022-01-16 11:53] LABS: ERYTHROCYTE SEDIMENTATION RATE 31 MM/HR (0-20)
[2022-01-16] MEDS: hydrALAZINE HCL 25 MG TABLET PO SCH (17:33)
[2022-01-16] MEDS: RIVAROXABAN 15 MG TABLET PO SCH (17:34)
--- NOTE | 2022-01-16 18:17 | NUR ---
RECEIVED PATIENT FROM ICU NURSE, ALERT AND ORIENTED X2 ABLE TO VERBALIZE NEEDS, WILL ASSUME ALL CARE OF PATIENT, NO NEEDS IDENTIFIED AT THIS TIME
--- NOTE | 2022-01-16 20:00 | NUR ---
OPENING NOTE PT IN BED CALLING FOR NURSE. PT ON O2 @ 4L. PT KD WELL WITH SAT'S OF 95%. PT HAS BEEN A/OX2 AND EASILY CONFUSED. PT C/O BACK PAIN 05/19. PT HAS IV VIA LEFT RENEE FOREARM.. F/C DRAINING WITH RADHA COLOR URINE. PT HAD SCANT AMT OF LIGHT BROWN STOOL. LL SAFETY PRECAUTIONS IN PLACE
--- NOTE | 2022-01-16 21:00 | NUR ---
PAIN MEDS PT JESSI CHANG FOR PAIN RATED 10/10
[2022-01-16] MEDS: HYDROcodone/ACETAMIN 10-325 MG TAB PO PRN (22:48)
--- NOTE | 2022-01-16 23:15 | NUR ---
FOOD PT C/O OF BEING HUNGRY PT GIVEN 1/2 SANDWICH WITH JUICE. ONCE PT FINISHED, SHE REQUEST ANOTHER SANDWICH WHICH SHE ATE EVERYTHING
[2022-01-17 00:56] VITALS: BP_SYST 123
[2022-01-17] MEDS: hydrALAZINE HCL 25 MG TABLET PO SCH ×3 (02:49→18:00)
[2022-01-17] MEDS: ALBUTEROL SULFATE 0.083% 2.5 MG/3 ML VIAL.NEB INH SCH ×4 (03:08→14:55)
[2022-01-17] MEDS: IPRATROPIUM BROM 0.5 MG/2.5 ML VIAL.NEB (ATROVENT) INH SCH ×4 (03:08→14:55)
[2022-01-17] MEDS: MEROPENEM 500 MG IVPB PREMIX 50 ML IV SCH (06:30)
[2022-01-17] MEDS: LEVOTHYROXINE SODIUM 0.15 MG TABLET PO SCH (07:00)
[2022-01-17 07:26] LABS: BASOPHILS % (AUTO) 0.3 % (0.0-2.0); EOSINOPHILS % (AUTO) 0.1 % (0.0-4.0); HEMATOCRIT 36.5 % (36-48); LYMPHOCYTES # (AUTO) 1.4 K/uL (1.0-5.5); LYMPHOCYTES % (AUTO) 9.3 % (20.5-51.5); MEAN CORPUSCULAR HEMOGLOBIN 28 pg (27-31); MEAN CORPUSCULAR HGB CONC 33 % (32-36); MEAN CORPUSCULAR VOLUME 86 fL (79.0-98.0); MONOCYTES # (AUTO) 0.9 K/uL (0.0-1.0); MONOCYTES % (AUTO) 6.1 % (1.7-9.3); NEUTROPHILS # (AUTO) 12.4 K/uL (1.8-7.7); PLATELET COUNT (AUTO) 394 K/uL (130-430); RED BLOOD CELL COUNT(AUTO) 4.23 MIL/uL (4.2-6.2); RED CELL DISTRIBUTION WIDTH 14.1 % (9.0-15.0); WHITE BLOOD COUNT (AUTO) 14.7 K/uL (4.8-10.8)
--- NOTE | 2022-01-17 07:30 | NUR ---
CLOSING NOTE REPORT GIVING TO DAY FURRIER DESIGNER. PT IN BED WITH BREAKFAST TRAY. PT COMFORTABLE AT THIS TIME
--- NOTE | 2022-01-17 07:45 | NUR ---
Received patient in bed resting comfortably, AAOX2. Patient presents calm and cooperative. No s/sx of pain or discomfort. Respirations are non-labored 3LPM via nasal cannula. Skin is clean, warm and dry to touch. IV access is patent, secure, no s/sx of redness or swelling observed. Bed is locked in lowest position, call light in reach. Nurse will continue care and monitor for changes in status.
[2022-01-17 08:03] LABS: ALANINE AMINOTRANSFERASE 9 U/L (12-78); ALBUMIN 2.6 g/dL (3.4-4.8); ANION GAP 9 (5-15); ASPARTATE AMINOTRANSFERASE 13 U/L (10-37); CALCIUM 7.5 mg/dL (8.4-11.0); CHLORIDE 105 mmol/L (98-107); CREATININE 0.99 mg/dL (0.55-1.30); GLUCOSE 114 mg/dL (70-99); POTASSIUM 4.4 mmol/L (3.5-5.1); SODIUM SERUM 137 mmol/L (136-145); TOTAL BILIRUBIN 0.3 mg/dL (0.0-1.0); UREA NITROGEN, BLOOD 45 mg/dL (8-21)
[2022-01-17 08:11] LABS: NEUTROPHILS % (AUTO) 84.2 % (40.0-70.0)
[2022-01-17] MEDS: amLODIPine BESYLATE 5 MG TABLET PO SCH (09:00)
[2022-01-17] MEDS: VERAPAMIL HCL 180 MG TABLET.SA PO SCH (09:00)
[2022-01-17] MEDS: METOPROLOL TARTRATE 25 MG TABLET PO SCH (09:00)
[2022-01-17] MEDS: POTASSIUM CHLORIDE 10 MEQ TAB.PRT.SR PO SCH (09:18)
[2022-01-17] MEDS: DULoxetine HCL 30 MG CAPSULE.DR (CYMBALTA) PO SCH (09:18)
[2022-01-17] MEDS: GABAPENTIN 300 MG CAPSULE PO SCH (09:18)
[2022-01-17] MEDS: FUROSEMIDE 20 MG TABLET PO SCH (09:18)
[2022-01-17] MEDS: LOSARTAN POTASSIUM 50 MG TABLET (COZAAR) PO SCH (09:18)
[2022-01-17 09:54] LABS: C-REACTIVE PROTEIN QUANT < 0.2 mg/dL (0-0.5)
[2022-01-17 10:01] LABS: ERYTHROCYTE SEDIMENTATION RATE 18 MM/HR (0-20)
[2022-01-17 10:21] VITALS: BP_SYST 108
[2022-01-17] MEDS ORDERED: PRED10TA PO (10:33)
[2022-01-17] MEDS ORDERED: METO25TA6 PO (10:33)
[2022-01-17] MEDS ORDERED: HYDR-4038 PO (10:33)
[2022-01-17] MEDS ORDERED: AMLO5TAB4 PO (10:33)
--- NOTE | 2022-01-17 11:13 | NUR ---
DISCHARGE PLANNING Order for dc to SNF. Spoke with pt and dtr Coleen at bedside, both agreeable with dc to SNF today. Preference is [facility](pt has been there several times in past) [facility]2 [facility]. Dtr requesting product picker after 5pm, would like to be here when pt is picked up & follow to SNF. Updated dc naval surface fire support planner.
[2022-01-17 11:37] VITALS: BP_SYST 118
--- NOTE | 2022-01-17 11:53 | NUR ---
Patient in bed resting comfortably. No s/sx of pain or discomfort. Respirations are non-labored 2LPM via nasal cannula. Skin is clean, warm and dry to touch. IV access is patent, secure, no s/sx of redness or swelling observed. Lowery patent, secured and draining by way of gravity. Patient tolerated medication well, no s/sx of adverse affects observed or reported or observed. Bed is locked in lowest position, call light in reach. Nurse will continue care and monitor for changes in status.
--- NOTE | 2022-01-17 11:54 | NUR ---
Patient in bed resting comfortably. No s/sx of pain or discomfort. Respirations are non-labored 3LPM via nasal cannula. Skin is clean, warm and dry to touch. IV access is patent, secure, no s/sx of redness or swelling observed. Patient tolerated medication well, no s/sx of adverse affects observed or reported or observed. Bed is locked in lowest position, call light in reach. Nurse will continue care and monitor for changes in status.
--- NOTE | 2022-01-17 11:56 | NUR ---
Discharge Planning: DCP faxed pt referral to [facility] P#[phone] DCP to follow up. Addendum: 01/17/22 at 1503 by Jie Staples DP DCP arranged transport with [facility] [phone] BLS 6:00pm to [facility] P#[phone] [address] #for report [phone]. DCP made CM and nurse aware. Addendum: 01/17/22 at 1512 by Gracie Pereira RN Per Dc automatic data processing planner pt accepted at [facility], oyster picker at 6pm. Called & updated dtr Coleen, ph [phone], agreeable with dc to [facility] today. Updated charge nurse.
--- NOTE | 2022-01-17 15:44 | NUR ---
Patient in bed resting comfortably. No s/sx of pain or discomfort. Respirations are non-labored 3LPM via nasal cannula. Skin is clean, warm and dry to touch. IV access is patent, secure, no s/sx of redness or swelling observed. Bed is locked in lowest position, call light in reach. Nurse will continue care and monitor for changes in status.
[2022-01-17 15:47] VITALS: BP_SYST 123
--- NOTE | 2022-01-17 16:38 | NUR ---
Wound Evaluation: Wound Consult ordered for Low Mansoor Score. Patient evaluated for a low Mansoor score of 15. Patient was awake, alert, oriented x 2, and received in a Ruben Bed with an IsoFlex JM mattress. Patient needs to be turned in bed. Skin is intact. Recommend encourage and assist patient as needed with repositioning every 2 hours with pillow support. Elevate, off-load and float bilateral heels with pillows. Offload pressure areas with pillows for pressure re-distribution. Perform skin care and monitor skin integrity Q shift. Use moisture barrier cream on moisture susceptible areas QID and PRN for soiling.
--- NOTE | 2022-01-17 17:15 | NUR ---
Called report to Precious Hess LVN at [facility] [phone]. Advised that patient will be transferred with Lowery catheter.
[2022-01-17] MEDS: RIVAROXABAN 15 MG TABLET PO SCH (18:00)
--- NOTE | 2022-01-17 19:48 | NUR ---
recieved pt from AM nurse. P discharged from hospital, and going t arnol niño. Pt is aox2, going with edmund. Pt IV removed, telemetry montior removed. and pt left at 1950 picked up by transport [facility].
[2022-01-18] MEDS ORDERED: predniSONE 10 MG TABLET PO SCH (09:00)
== END 2022-01-17 19:45 | DRG 871 ==
LOC: SED 10:41 → UNDOADMIN 13:26 → STU 13:26 → UNDOADMIN 14:00 → SIC 14:00 → STU 15:30 → SIC 15:30 → STU 16:26 → SIC 19:35 → STU 01-16 16:13
PROVIDERS: ADMIT Preventive Medicine Preventive Medicine/Occupational Environmental Medicine; ATTEND Preventive Medicine Preventive Medicine/Occupational Environmental Medicine
DX: A41.9 Sepsis, unspecified organism (principal); J96.21 Acute and chronic respiratory failure with hypoxia; J69.0 Pneumonitis due to inhalation of food and vomit; N17.0 Acute kidney failure with tubular necrosis; I50.33 Acute on chronic diastolic (congestive) heart failure; J15.9 Unspecified bacterial pneumonia; J44.0 Chronic obstructive pulmonary disease with (acute) lower respiratory infection; Z16.12 Extended spectrum beta lactamase (ESBL) resistance; N39.0 Urinary tract infection, site not specified; G93.40 Encephalopathy, unspecified; E87.0 Hyperosmolality and hypernatremia; I11.0 Hypertensive heart disease with heart failure; F03.90 Unspecified dementia, unspecified severity, without behavioral disturbance, psychotic disturbance, mood disturbance, and anxiety; E88.09 Other disorders of plasma-protein metabolism, not elsewhere classified; D64.9 Anemia, unspecified; I25.10 Atherosclerotic heart disease of native coronary artery without angina pectoris; E83.52 Hypercalcemia; B96.20 Unspecified Escherichia coli [E. coli] as the cause of diseases classified elsewhere; E11.65 Type 2 diabetes mellitus with hyperglycemia; D75.839 Thrombocytosis, unspecified; R74.01 Elevation of levels of liver transaminase levels; N32.81 Overactive bladder; Z20.822 Contact with and (suspected) exposure to COVID-19; M79.7 Fibromyalgia; M19.90 Unspecified osteoarthritis, unspecified site; E87.6 Hypokalemia; E87.5 Hyperkalemia; E83.39 Other disorders of phosphorus metabolism; E83.41 Hypermagnesemia; E83.51 Hypocalcemia; Z88.5 Allergy status to narcotic agent; Z88.0 Allergy status to penicillin; Z88.8 Allergy status to other drugs, medicaments and biological substances; Z91.040 Latex allergy status; Z79.899 Other long term (current) drug therapy; Z86.73 Personal history of transient ischemic attack (TIA), and cerebral infarction without residual deficits; Z79.01 Long term (current) use of anticoagulants; Z78.1 Physical restraint status
CPT/HCPCS: 36415; 36600; 70450-TC; 71045; 76376; 76770; 80048; 80053; 81000; 82803-TC; 82962; 83605; 83735; 83880; 84100; 84439; 84443; 84484; 85007; 85025; 85027; 85651-TC; 86140; 86635; 87040; 87081; 87086; 92610-GN; 93005; 93306; 93970; 94640; 94760; 95816; 96365; 96375; 97530-GP; 99291; G0378; J0360; J0692; J1100; J1940; J1956; J2060; J2185; J2270; J2405; J3480; J3490; J7060; J7613; U0003

== ENCOUNTER 2022-03-09 10:55 | Inpatient (IN) | payer OTHER ==
[~2022-03-09] VITALS: Ht 162.6 cm; Wt 68.0 kg
[2022-03-09] VITALS (8 sets, daily range): BP systolic 98–142
[~2022-03-09 10:55] MED LIST changes: -ACET-73 PO; -ALBU2.5V7 INH; -ALBU2TAB4 INH; +AMLO5TAB4 PO; +ATEN-41 PO; -BISA10SU61 RC; +CALC-823 PO; +CALC3.8S NS; -CEFE1FRO IV; -CIME800T PO; -GABA300S PO; -GEMF600T89 PO; +HYDR-4038 PO; +LOP600 PO; -METH1POW38 MC; +METO25TA6 PO; -METO50TA7 PO; -MOM PO; +NEU300 PO; -POLY15DR31 EACH EYE; +PRED10TA PO; -TEMA15CA5 PO
[2022-03-09] MEDS ORDERED: ATROPINE SULFATE 1 MG/10 ML SYRINGE IVP ONE (11:30)
[2022-03-09] MEDS ORDERED: MORPHINE 4 MG INJ. 4 MG/ML VIAL IVP ONE (11:30)
[2022-03-09 12:16] LABS: BASOPHILS # (AUTO) 0.1 K/uL (0.0-0.2); BASOPHILS % (AUTO) 0.8 % (0.0-2.0); EOSINOPHILS # (AUTO) 0.1 K/uL (0.0-0.4); EOSINOPHILS % (AUTO) 1.2 % (0.0-4.0); HEMATOCRIT 32.6 % (36-48); HEMOGLOBIN 10.7 g/dL (12.0-16.0); LYMPHOCYTES # (AUTO) 1.6 K/uL (1.0-5.5); LYMPHOCYTES % (AUTO) 13.5 % (20.5-51.5); MEAN CORPUSCULAR HEMOGLOBIN 29 pg (27-31); MEAN CORPUSCULAR HGB CONC 33 % (32-36); MEAN CORPUSCULAR VOLUME 88 fL (79.0-98.0); MONOCYTES # (AUTO) 0.7 K/uL (0.0-1.0); MONOCYTES % (AUTO) 6.3 % (1.7-9.3); NEUTROPHILS # (AUTO) 9.1 K/uL (1.8-7.7); NEUTROPHILS % (AUTO) 78.2 % (40.0-70.0); PLATELET COUNT (AUTO) 376 K/uL (130-430); RED CELL DISTRIBUTION WIDTH 15.5 % (9.0-15.0); WHITE BLOOD COUNT (AUTO) 11.7 K/uL (4.8-10.8)
[2022-03-09] MEDS: EPINEPHrine HCL 10 MG in NS 240 ML IV PRN ×3 (12:16→14:17)
[2022-03-09 12:36] LABS: ANION GAP 13 (5-15); CALCIUM 8.4 mg/dL (8.4-11.0); CHLORIDE 97 mmol/L (98-107); GLUCOSE 100 mg/dL (70-99); SODIUM SERUM 129 mmol/L (136-145); UREA NITROGEN, BLOOD 50 mg/dL (8-21)
[2022-03-09 12:52] LABS: ALANINE AMINOTRANSFERASE 7 U/L (12-78); ALBUMIN 3.5 g/dL (3.4-4.8); ASPARTATE AMINOTRANSFERASE 10 U/L (10-37); LIPASE 177 U/L (73-393); TOTAL BILIRUBIN 0.2 mg/dL (0.0-1.0)
[2022-03-09 12:56] LABS: POTASSIUM 6.3 mmol/L (3.5-5.1)
[2022-03-09] MEDS ORDERED: INSULIN REGULAR, HUMAN 10 UNITS/0.1 ML INJ IVP ONE (13:00)
[2022-03-09] MEDS ORDERED: DEXTROSE 50% JECT 50 ML DISP.SYRIN IVP ONE (13:00)
[2022-03-09] MEDS ORDERED: CALCIUM CHLORIDE 1 GM in NS 100 ML IV ONE (13:00)
[2022-03-09] MEDS ORDERED: SODIUM POLYSTYRENE SULFONATE 15 GM/60 ML UDBTL PO ONE (13:00)
[2022-03-09] MEDS ORDERED: ACETAMINOPHEN 650 MG SUPP.RECT RC PRN (13:15)
[2022-03-09] MEDS ORDERED: CALCIUM GLUCONATE 1 GM in NS 100 ML IV ONE (13:30)
[2022-03-09] MEDS ORDERED: CALCIUM GLUCONATE 1 GM/10 ML VIAL ONE (13:37)
[2022-03-09] MEDS: NACL 0.9% 1,000 ML IV SCH ×4 (13:43→17:21)
[2022-03-09] MEDS ORDERED: CALCIUM GLUCONATE 1 GM/10 ML VIAL IVP ONE (13:45)
[2022-03-09] MEDS ORDERED: SODIUM POLYSTYRENE SULFONATE 15 GM/60 ML UDBTL GT ONE (15:30)
[2022-03-09] MEDS ORDERED: SODIUM BICARBONATE 8.4% JECT 50 MEQ/50 ML SYRINGE IVP ONE (15:30)
[2022-03-09] MEDS ORDERED: NALOXONE HCL 0.4 MG/ML AMP (NARCAN) IVP PRN (17:30)
[2022-03-09] MEDS ORDERED: NACL 0.9% 1,000 ML IV SCH (17:30)
[2022-03-09] MEDS: predniSONE 10 MG TABLET PO SCH (17:30)
[2022-03-09] MEDS: amLODIPine BESYLATE 5 MG TABLET PO SCH (17:30)
[2022-03-09] MEDS ORDERED: ONDANSETRON HCL 4 MG/2 ML VIAL IM PRN (17:30)
[2022-03-09] MEDS: MORPHINE 2 MG/ML INJ. SYRINGE IVP PRN (19:08)
[2022-03-09] MEDS: GABAPENTIN 300 MG CAPSULE PO SCH ×2 (19:09→21:00)
[2022-03-09 20:11] LABS: ANION GAP 15 (5-15); CALCIUM 8.9 mg/dL (8.4-11.0); CHLORIDE 101 mmol/L (98-107); CREATININE 3.32 mg/dL (0.55-1.30); GLUCOSE 87 mg/dL (70-99); POTASSIUM 5.5 mmol/L (3.5-5.1); SODIUM SERUM 135 mmol/L (136-145); UREA NITROGEN, BLOOD 53 mg/dL (8-21)
[2022-03-09] MEDS ORDERED: SODIUM POLYSTYRENE SULFONATE 15 GM/60 ML UDBTL RC SCH (20:30)
[2022-03-09] MEDS: DOCUSATE SODIUM 100 MG/10 ML UDC PO SCH (21:00)
[2022-03-09] MEDS: MIRTAZAPINE 15 MG TABLET PO SCH (21:00)
[2022-03-09] MEDS ORDERED: RIVAROXABAN 15 MG TABLET PO SCH (21:00)
[2022-03-10] VITALS (26 sets, daily range): BP systolic 124–197
[2022-03-10 07:52] LABS: BASOPHILS # (AUTO) 0.1 K/uL (0.0-0.2); BASOPHILS % (AUTO) 0.7 % (0.0-2.0); EOSINOPHILS # (AUTO) 0.2 K/uL (0.0-0.4); EOSINOPHILS % (AUTO) 2.3 % (0.0-4.0); HEMATOCRIT 31.2 % (36-48); HEMOGLOBIN 10.4 g/dL (12.0-16.0); LYMPHOCYTES # (AUTO) 1.1 K/uL (1.0-5.5); LYMPHOCYTES % (AUTO) 10.4 % (20.5-51.5); MEAN CORPUSCULAR HEMOGLOBIN 29 pg (27-31); MEAN CORPUSCULAR HGB CONC 33 % (32-36); MEAN CORPUSCULAR VOLUME 88 fL (79.0-98.0); MONOCYTES # (AUTO) 0.7 K/uL (0.0-1.0); MONOCYTES % (AUTO) 6.4 % (1.7-9.3); NEUTROPHILS # (AUTO) 8.5 K/uL (1.8-7.7); NEUTROPHILS % (AUTO) 80.2 % (40.0-70.0); PLATELET COUNT (AUTO) 389 K/uL (130-430); RED BLOOD CELL COUNT(AUTO) 3.54 MIL/uL (4.2-6.2); WHITE BLOOD COUNT (AUTO) 10.6 K/uL (4.8-10.8)
[2022-03-10 08:54] LABS: ALANINE AMINOTRANSFERASE 5 U/L (12-78); ALBUMIN 3.6 g/dL (3.4-4.8); AMYLASE 85 U/L (0-100); ANION GAP 14 (5-15); ASPARTATE AMINOTRANSFERASE 15 U/L (10-37); CALCIUM 8.6 mg/dL (8.4-11.0); CHLORIDE 105 mmol/L (98-107); CREATININE 3.15 mg/dL (0.55-1.30); GLUCOSE 92 mg/dL (70-99); POTASSIUM 4.9 mmol/L (3.5-5.1); SODIUM SERUM 141 mmol/L (136-145); THYROID STIMULATING HORMONE 2.19 uIu/mL (0.36-3.74); TOTAL BILIRUBIN 0.2 mg/dL (0.0-1.0); UREA NITROGEN, BLOOD 48 mg/dL (8-21)
[2022-03-10] MEDS: LEVOTHYROXINE SODIUM 0.075 MG TABLET PO SCH (08:54)
[2022-03-10] MEDS: DOCUSATE SODIUM 100 MG/10 ML UDC PO SCH ×2 (08:54→21:00)
[2022-03-10] MEDS: predniSONE 10 MG TABLET PO SCH (08:54)
[2022-03-10] MEDS: GABAPENTIN 300 MG CAPSULE PO SCH ×2 (08:55→22:00)
[2022-03-10] MEDS: amLODIPine BESYLATE 5 MG TABLET PO SCH (08:56)
[2022-03-10] MEDS: HEPARIN SODIUM,PORCINE 5,000 UNITS/ML VIAL SUBCUT SCH ×2 (13:28→22:08)
[2022-03-10] MEDS: LORazepam 1 MG TABLET PO PRN ×2 (13:37→22:01)
[2022-03-10] MEDS: IPRATROPIUM/ALBUTEROL SULFATE 3 ML AMPUL.NEB (DUONEB) INH SCH ×2 (13:55→19:41)
[2022-03-10] MEDS: MORPHINE 2 MG/ML INJ. SYRINGE IVP PRN (14:44)
[2022-03-10] MEDS ORDERED: hydrALAZINE HCL 20 MG/ML VIAL IVP PRN (17:45)
[2022-03-10] MEDS ORDERED: hydrALAZINE HCL 20 MG/ML VIAL ONE (18:24)
[2022-03-10] MEDS: NYSTATIN 15 GM TOPICAL POWDER TP SCH (21:00)
[2022-03-10] MEDS: MIRTAZAPINE 15 MG TABLET PO SCH (22:00)
[2022-03-10] MEDS: hydrALAZINE HCL 20 MG/ML VIAL IVP PRN (23:35)
[2022-03-11] VITALS (25 sets, daily range): BP systolic 149–200
[2022-03-11] MEDS: IPRATROPIUM/ALBUTEROL SULFATE 3 ML AMPUL.NEB (DUONEB) INH SCH ×4 (01:13→20:15)
[2022-03-11] MEDS: hydrALAZINE HCL 20 MG/ML VIAL IVP PRN ×4 (06:24→22:27)
[2022-03-11] MEDS: HEPARIN SODIUM,PORCINE 5,000 UNITS/ML VIAL SUBCUT SCH ×3 (06:28→21:07)
[2022-03-11] MEDS: LEVOTHYROXINE SODIUM 0.075 MG TABLET PO SCH (06:34)
[2022-03-11 06:46] LABS: BASOPHILS # (AUTO) 0.1 K/uL (0.0-0.2); BASOPHILS % (AUTO) 0.7 % (0.0-2.0); EOSINOPHILS # (AUTO) 0.1 K/uL (0.0-0.4); EOSINOPHILS % (AUTO) 1.1 % (0.0-4.0); HEMATOCRIT 33.1 % (36-48); HEMOGLOBIN 10.9 g/dL (12.0-16.0); LYMPHOCYTES # (AUTO) 0.9 K/uL (1.0-5.5); LYMPHOCYTES % (AUTO) 7.5 % (20.5-51.5); MEAN CORPUSCULAR HEMOGLOBIN 29 pg (27-31); MEAN CORPUSCULAR HGB CONC 33 % (32-36); MEAN CORPUSCULAR VOLUME 88 fL (79.0-98.0); MONOCYTES # (AUTO) 0.7 K/uL (0.0-1.0); MONOCYTES % (AUTO) 6.1 % (1.7-9.3); NEUTROPHILS # (AUTO) 9.8 K/uL (1.8-7.7); NEUTROPHILS % (AUTO) 84.6 % (40.0-70.0); PLATELET COUNT (AUTO) 406 K/uL (130-430); RED BLOOD CELL COUNT(AUTO) 3.78 MIL/uL (4.2-6.2); RED CELL DISTRIBUTION WIDTH 15.9 % (9.0-15.0); WHITE BLOOD COUNT (AUTO) 11.6 K/uL (4.8-10.8)
[2022-03-11 08:34] LABS: ALANINE AMINOTRANSFERASE 9 U/L (12-78); ALBUMIN 3.4 g/dL (3.4-4.8); ANION GAP 16 (5-15); ASPARTATE AMINOTRANSFERASE 16 U/L (10-37); CHLORIDE 110 mmol/L (98-107); CREATININE 0.78 mg/dL (0.55-1.30); GLUCOSE 89 mg/dL (70-99); POTASSIUM 3.4 mmol/L (3.5-5.1); TOTAL BILIRUBIN 0.3 mg/dL (0.0-1.0); UREA NITROGEN, BLOOD 19 mg/dL (8-21)
[2022-03-11 08:43] LABS: SODIUM SERUM 147 mmol/L (136-145)
[2022-03-11] MEDS ORDERED: hydrALAZINE HCL 25 MG TABLET PO ONE (09:00)
[2022-03-11] MEDS: DOCUSATE SODIUM 100 MG/10 ML UDC PO SCH ×2 (09:58→20:10)
[2022-03-11] MEDS: NYSTATIN 15 GM TOPICAL POWDER TP SCH ×2 (09:59→20:10)
[2022-03-11] MEDS: predniSONE 10 MG TABLET PO SCH (09:59)
[2022-03-11] MEDS: amLODIPine BESYLATE 5 MG TABLET PO SCH (09:59)
[2022-03-11] MEDS: GABAPENTIN 300 MG CAPSULE PO SCH ×2 (10:03→20:10)
[2022-03-11] MEDS: MORPHINE 2 MG/ML INJ. SYRINGE IVP PRN ×2 (11:36→23:08)
[2022-03-11] MEDS: ONDANSETRON HCL 4 MG/2 ML VIAL IVP PRN (11:45)
[2022-03-11] MEDS ORDERED: DEXTROSE 50% JECT 50 ML DISP.SYRIN IVP PRN (12:30)
[2022-03-11] MEDS ORDERED: GLUCOSE (DEXTROSE) ORAL GEL -Adults PO PRN (12:30)
[2022-03-11] MEDS ORDERED: D5W 1,000 ML IV PRN (12:30)
[2022-03-11] MEDS: LABETALOL 100 MG/ 20ML VIAL IVP PRN ×2 (13:30→23:56)
[2022-03-11] MEDS: hydrALAZINE HCL 25 MG TABLET PO SCH ×2 (13:56→21:06)
[2022-03-11] MEDS: MIRTAZAPINE 15 MG TABLET PO SCH (20:10)
[2022-03-12] VITALS (15 sets, daily range): BP systolic 142–188
[2022-03-12] MEDS: IPRATROPIUM/ALBUTEROL SULFATE 3 ML AMPUL.NEB (DUONEB) INH SCH ×5 (00:40→21:55)
[2022-03-12] MEDS: hydrALAZINE HCL 20 MG/ML VIAL IVP PRN ×2 (03:14→07:36)
[2022-03-12] MEDS: hydrALAZINE HCL 25 MG TABLET PO SCH ×3 (05:37→21:36)
[2022-03-12] MEDS: HEPARIN SODIUM,PORCINE 5,000 UNITS/ML VIAL SUBCUT SCH ×3 (05:38→21:37)
[2022-03-12] MEDS: LABETALOL 100 MG/ 20ML VIAL IVP PRN ×2 (05:40→13:43)
[2022-03-12] MEDS: LEVOTHYROXINE SODIUM 0.075 MG TABLET PO SCH (06:50)
[2022-03-12] MEDS: MORPHINE 2 MG/ML INJ. SYRINGE IVP PRN (07:59)
[2022-03-12 08:16] LABS: BASOPHILS # (AUTO) 0.1 K/uL (0.0-0.2); BASOPHILS % (AUTO) 0.7 % (0.0-2.0); EOSINOPHILS # (AUTO) 0.1 K/uL (0.0-0.4); EOSINOPHILS % (AUTO) 0.9 % (0.0-4.0); HEMATOCRIT 34.8 % (36-48); HEMOGLOBIN 11.6 g/dL (12.0-16.0); LYMPHOCYTES % (AUTO) 9.3 % (20.5-51.5); MEAN CORPUSCULAR HEMOGLOBIN 29 pg (27-31); MEAN CORPUSCULAR HGB CONC 33 % (32-36); MEAN CORPUSCULAR VOLUME 88 fL (79.0-98.0); MONOCYTES # (AUTO) 0.6 K/uL (0.0-1.0); MONOCYTES % (AUTO) 5.8 % (1.7-9.3); NEUTROPHILS # (AUTO) 8.9 K/uL (1.8-7.7); NEUTROPHILS % (AUTO) 83.3 % (40.0-70.0); PLATELET COUNT (AUTO) 510 K/uL (130-430); RED BLOOD CELL COUNT(AUTO) 3.98 MIL/uL (4.2-6.2); RED CELL DISTRIBUTION WIDTH 15.6 % (9.0-15.0); WHITE BLOOD COUNT (AUTO) 10.7 K/uL (4.8-10.8)
[2022-03-12 08:42] LABS: ALANINE AMINOTRANSFERASE 8 U/L (12-78); ANION GAP 14 (5-15); ASPARTATE AMINOTRANSFERASE 15 U/L (10-37); CALCIUM 9.4 mg/dL (8.4-11.0); CHLORIDE 113 mmol/L (98-107); CREATININE 0.66 mg/dL (0.55-1.30); GLUCOSE 104 mg/dL (70-99); SODIUM SERUM 150 mmol/L (136-145); TOTAL BILIRUBIN 0.3 mg/dL (0.0-1.0); UREA NITROGEN, BLOOD 17 mg/dL (8-21)
[2022-03-12 09:11] LABS: POTASSIUM 2.8 mmol/L (3.5-5.1)
[2022-03-12] MEDS: GABAPENTIN 300 MG CAPSULE PO SCH ×2 (09:16→21:35)
[2022-03-12] MEDS: DOCUSATE SODIUM 100 MG/10 ML UDC PO SCH ×2 (09:16→21:35)
[2022-03-12] MEDS: predniSONE 10 MG TABLET PO SCH (09:16)
[2022-03-12] MEDS: amLODIPine BESYLATE 5 MG TABLET PO SCH (09:17)
[2022-03-12] MEDS: NYSTATIN 15 GM TOPICAL POWDER TP SCH ×2 (09:18→21:38)
[2022-03-12] MEDS ORDERED: POTASSIUM CHLORIDE 20 MEQ TAB.PRT.SR PO ONE (09:45)
[2022-03-12] MEDS ORDERED: POTASSIUM CHLORIDE 40 MEQ in D5W 250 ML IV ONE (10:30)
[2022-03-12] MEDS: D5W 1,000 ML IV SCH (10:37)
[2022-03-12 12:12] LABS: BILIRUBIN,URINE NEGATIVE (NEGATIVE); BLOOD, URINE NEGATIVE (NEGATIVE); CLARITY/URINE CLEAR (CLEAR); COLOR,URINE YELLOW (YELLOW); GLUCOSE,URINE NEGATIVE (NEGATIVE); KETONES,URINE TRACE (NEGATIVE); LEUKOCYTE ESTERASE ,URINE NEGATIVE (NEGATIVE); NITRITE, URINE NEGATIVE (NEGATIVE); PROTEIN URINE 3+ (NEGATIVE); UROBILINOGEN,URINE 0.2 (0.2-1.0)
[2022-03-12] MEDS: PHENAZOPYRIDINE HCL 100 MG TABLET PO SCH ×2 (12:30→18:08)
[2022-03-12] MEDS: MIRTAZAPINE 15 MG TABLET PO SCH (21:35)
[2022-03-13 00:52] VITALS: BP_SYST 152
[2022-03-13] MEDS: LEVOTHYROXINE SODIUM 0.075 MG TABLET PO SCH (06:30)
[2022-03-13] MEDS: hydrALAZINE HCL 25 MG TABLET PO SCH ×3 (06:30→22:06)
[2022-03-13] MEDS: D5W 1,000 ML IV SCH (06:31)
[2022-03-13] MEDS: HEPARIN SODIUM,PORCINE 5,000 UNITS/ML VIAL SUBCUT SCH ×3 (06:32→22:07)
[2022-03-13 06:55] LABS: ALANINE AMINOTRANSFERASE 5 U/L (12-78); ANION GAP 12 (5-15); ASPARTATE AMINOTRANSFERASE 14 U/L (10-37); CALCIUM 9.1 mg/dL (8.4-11.0); CHLORIDE 107 mmol/L (98-107); CREATININE 0.62 mg/dL (0.55-1.30); GLUCOSE 93 mg/dL (70-99); POTASSIUM 3.1 mmol/L (3.5-5.1); SODIUM SERUM 144 mmol/L (136-145); TOTAL BILIRUBIN 0.3 mg/dL (0.0-1.0); UREA NITROGEN, BLOOD 13 mg/dL (8-21)
[2022-03-13 07:13] LABS: BASOPHILS # (AUTO) 0.1 K/uL (0.0-0.2); BASOPHILS % (AUTO) 1.1 % (0.0-2.0); EOSINOPHILS # (AUTO) 0.2 K/uL (0.0-0.4); EOSINOPHILS % (AUTO) 2.1 % (0.0-4.0); HEMOGLOBIN 12.1 g/dL (12.0-16.0); LYMPHOCYTES # (AUTO) 1.9 K/uL (1.0-5.5); LYMPHOCYTES % (AUTO) 17.5 % (20.5-51.5); MEAN CORPUSCULAR HEMOGLOBIN 29 pg (27-31); MEAN CORPUSCULAR HGB CONC 34 % (32-36); MEAN CORPUSCULAR VOLUME 86 fL (79.0-98.0); MONOCYTES # (AUTO) 0.7 K/uL (0.0-1.0); MONOCYTES % (AUTO) 6.3 % (1.7-9.3); NEUTROPHILS # (AUTO) 7.9 K/uL (1.8-7.7); PLATELET COUNT (AUTO) 561 K/uL (130-430); RED BLOOD CELL COUNT(AUTO) 4.18 MIL/uL (4.2-6.2); RED CELL DISTRIBUTION WIDTH 15.5 % (9.0-15.0); WHITE BLOOD COUNT (AUTO) 10.8 K/uL (4.8-10.8)
[2022-03-13 08:00] VITALS: BP_SYST 168
[2022-03-13] MEDS: IPRATROPIUM/ALBUTEROL SULFATE 3 ML AMPUL.NEB (DUONEB) INH SCH ×3 (08:43→20:34)
[2022-03-13] MEDS ORDERED: amLODIPine BESYLATE 5 MG TABLET PO ONE (09:10)
[2022-03-13] MEDS: DOCUSATE SODIUM 100 MG/10 ML UDC PO SCH ×2 (09:14→20:50)
[2022-03-13] MEDS: predniSONE 10 MG TABLET PO SCH (09:14)
[2022-03-13] MEDS: PHENAZOPYRIDINE HCL 100 MG TABLET PO SCH ×3 (09:18→18:38)
[2022-03-13] MEDS: NYSTATIN 15 GM TOPICAL POWDER TP SCH ×2 (09:28→20:51)
[2022-03-13] MEDS: GABAPENTIN 300 MG CAPSULE PO SCH ×2 (09:28→20:47)
[2022-03-13] MEDS: POTASSIUM CHLORIDE 40 MEQ in 0.45% NS 250 ML IV SCH ×2 (11:56→17:30)
[2022-03-13 12:00] VITALS: BP_SYST 155
[2022-03-13] MEDS: MORPHINE 2 MG/ML INJ. SYRINGE IVP PRN (13:13)
[2022-03-13] MEDS: ONDANSETRON HCL 4 MG/2 ML VIAL IVP PRN (13:13)
[2022-03-13 16:19] VITALS: BP_SYST 157
[2022-03-13] MEDS ORDERED: NALOXONE HCL 0.4 MG/ML AMP (NARCAN) IVP PRN (18:30)
[2022-03-13] MEDS: HYDROcodone/ACETAMIN 10-325 MG TAB PO PRN (19:17)
[2022-03-13] MEDS: MIRTAZAPINE 15 MG TABLET PO SCH (20:47)
[2022-03-13 21:05] VITALS: BP_SYST 166
[2022-03-14 01:03] VITALS: BP_SYST 165
[2022-03-14] MEDS: IPRATROPIUM/ALBUTEROL SULFATE 3 ML AMPUL.NEB (DUONEB) INH SCH ×4 (01:30→19:44)
[2022-03-14] MEDS: HYDROcodone/ACETAMIN 10-325 MG TAB PO PRN ×2 (01:44→16:46)
[2022-03-14] MEDS: D5W 1,000 ML IV SCH (01:49)
[2022-03-14] MEDS: hydrALAZINE HCL 25 MG TABLET PO SCH ×2 (05:45→14:30)
[2022-03-14] MEDS: HEPARIN SODIUM,PORCINE 5,000 UNITS/ML VIAL SUBCUT SCH ×2 (05:46→14:30)
[2022-03-14 07:35] VITALS: BP_SYST 185
[2022-03-14] MEDS ORDERED: amLODIPine BESYLATE 5 MG TABLET PO SCH (09:00)
[2022-03-14] MEDS: PHENAZOPYRIDINE HCL 100 MG TABLET PO SCH ×2 (10:00→13:32)
[2022-03-14] MEDS: DOCUSATE SODIUM 100 MG/10 ML UDC PO SCH (10:00)
[2022-03-14] MEDS: NYSTATIN 15 GM TOPICAL POWDER TP SCH (10:00)
[2022-03-14] MEDS: GABAPENTIN 300 MG CAPSULE PO SCH (10:00)
[2022-03-14] MEDS: predniSONE 10 MG TABLET PO SCH (10:00)
[2022-03-14 12:00] VITALS: BP_SYST 159
[2022-03-14 16:32] VITALS: BP_SYST 162
[2022-03-14 17:19] VITALS: BP_SYST 154
[2022-03-14] MEDS: hydrALAZINE HCL 20 MG/ML VIAL IVP PRN (20:02)
[2022-03-15] MEDS ORDERED: amLODIPine BESYLATE 10 MG TABLET PO SCH (09:00)
== END 2022-03-14 20:33 | DRG 291 ==
LOC: SED 10:55 → SMU 13:13 → SIC 14:36 → STU 03-12 15:59
PROVIDERS: ADMIT Family Medicine; ATTEND Family Medicine
DX: I13.0 Hypertensive heart and chronic kidney disease with heart failure and stage 1 through stage 4 chronic kidney disease, or unspecified chronic kidney disease (principal); G93.41 Metabolic encephalopathy; J96.21 Acute and chronic respiratory failure with hypoxia; N17.0 Acute kidney failure with tubular necrosis; I50.21 Acute systolic (congestive) heart failure; I44.2 Atrioventricular block, complete; J44.1 Chronic obstructive pulmonary disease with (acute) exacerbation; E87.5 Hyperkalemia; I49.8 Other specified cardiac arrhythmias; I48.91 Unspecified atrial fibrillation; F03.90 Unspecified dementia, unspecified severity, without behavioral disturbance, psychotic disturbance, mood disturbance, and anxiety; G89.4 Chronic pain syndrome; E66.01 Morbid (severe) obesity due to excess calories; I48.0 Paroxysmal atrial fibrillation; E03.9 Hypothyroidism, unspecified; G62.9 Polyneuropathy, unspecified; M54.9 Dorsalgia, unspecified; D63.8 Anemia in other chronic diseases classified elsewhere; Z20.822 Contact with and (suspected) exposure to COVID-19; N18.2 Chronic kidney disease, stage 2 (mild); I35.8 Other nonrheumatic aortic valve disorders; Z96.611 Presence of right artificial shoulder joint; R13.10 Dysphagia, unspecified; Z66 Do not resuscitate; Z88.0 Allergy status to penicillin; Z88.6 Allergy status to analgesic agent; Z88.1 Allergy status to other antibiotic agents; Z91.040 Latex allergy status; Z79.899 Other long term (current) drug therapy; Z68.25 Body mass index [BMI] 25.0-25.9, adult; Z79.01 Long term (current) use of anticoagulants; Z86.73 Personal history of transient ischemic attack (TIA), and cerebral infarction without residual deficits; Z87.01 Personal history of pneumonia (recurrent); Z87.440 Personal history of urinary (tract) infections; Z90.710 Acquired absence of both cervix and uterus
CPT/HCPCS: 36415; 71045; 76770; 80048; 80053; 81003; 82150; 82550; 82962; 83605; 83690; 83735; 83880; 84443; 84484; 85025; 87081; 87086; 92610-GN; 93005; 94640; 94760; 96374; 96375; 99291; G0378; J0171; J0360; J0461; J0610; J1644; J1815; J2270; J2405; J3480; J3490; J7050; J7060; J7512

== ENCOUNTER 2022-03-31 02:06 | Inpatient (IN) | payer OTHER ==
[2022-03-31] VITALS (10 sets, daily range): BP systolic 100–127
[~2022-03-31] VITALS: Ht 167.6 cm; Wt 98.0 kg
[~2022-03-31 02:06] MED LIST changes: -ATEN-41 PO; +IV Levaquin IV; -METO25TA6 PO; -POTA10TA15 PO; -PRED10TA PO; -VERA180T59 PO
[2022-03-31] MEDS ORDERED: IPRATROPIUM/ALBUTEROL SULFATE 3 ML AMPUL.NEB (DUONEB) ONE (02:54)
[2022-03-31] MEDS ORDERED: IPRATROPIUM/ALBUTEROL SULFATE 3 ML AMPUL.NEB (DUONEB) INH ONE (03:00)
[2022-03-31] MEDS ORDERED: methylPREDNISolone SOD SUCC/PF 62.5 MG/ML VIAL IVP ONE (03:00)
--- NOTE | 2022-03-31 03:00 | NUR ---
pt came is with short of breath. Alert and oriented x4. compalining pain around upper epigastric
[2022-03-31 03:12] LABS: BASOPHILS # (AUTO) 0.1 K/uL (0.0-0.2); BASOPHILS % (AUTO) 0.4 % (0.0-2.0); EOSINOPHILS # (AUTO) 0.1 K/uL (0.0-0.4); EOSINOPHILS % (AUTO) 0.5 % (0.0-4.0); HEMATOCRIT 33.1 % (36-48); LYMPHOCYTES # (AUTO) 1.2 K/uL (1.0-5.5); LYMPHOCYTES % (AUTO) 6.6 % (20.5-51.5); MEAN CORPUSCULAR HEMOGLOBIN 29 pg (27-31); MEAN CORPUSCULAR HGB CONC 33 % (32-36); MEAN CORPUSCULAR VOLUME 87 fL (79.0-98.0); MONOCYTES # (AUTO) 0.7 K/uL (0.0-1.0); MONOCYTES % (AUTO) 3.6 % (1.7-9.3); NEUTROPHILS # (AUTO) 16.3 K/uL (1.8-7.7); NEUTROPHILS % (AUTO) 88.9 % (40.0-70.0); PLATELET COUNT (AUTO) 279 K/uL (130-430); RED BLOOD CELL COUNT(AUTO) 3.81 MIL/uL (4.2-6.2); RED CELL DISTRIBUTION WIDTH 15.8 % (9.0-15.0); WHITE BLOOD COUNT (AUTO) 18.4 K/uL (4.8-10.8)
[2022-03-31 03:43] LABS: ALANINE AMINOTRANSFERASE 3 U/L (12-78); ALBUMIN 2.2 g/dL (3.4-4.8); ASPARTATE AMINOTRANSFERASE < 5 U/L (10-37); CREATININE 1.85 mg/dL (0.55-1.30); GLUCOSE 142 mg/dL (70-99); TOTAL BILIRUBIN 0.2 mg/dL (0.0-1.0); UREA NITROGEN, BLOOD 49 mg/dL (8-21)
[2022-03-31 03:50] LABS: INR 1.2 (0.8-1.2); PROTHROMBIN TIME 12.8 SECS (9.5-12.5)
--- NOTE | 2022-03-31 04:00 | NUR ---
Pt was vomitting. Called the ER the Og tube was placed and 100 ml residual was out.
[2022-03-31 04:03] LABS: ANION GAP 14 (5-15); CHLORIDE 96 mmol/L (98-107); POTASSIUM 4.6 mmol/L (3.5-5.1); SODIUM SERUM 134 mmol/L (136-145)
[2022-03-31] MEDS ORDERED: AZITHROMYCIN 500 MG in NS 250 ML IV ONE (04:30)
[2022-03-31] MEDS ORDERED: CEFEPIME 2 GM in D5W 100 ML IV ONE (04:30)
[2022-03-31] MEDS ORDERED: VANCOMYCIN HCL 1,000 MG in NS 250 ML IV ONE (04:30)
[2022-03-31] MEDS ORDERED: ONDANSETRON HCL 4 MG/2 ML VIAL ONE (04:39)
[2022-03-31] MEDS ORDERED: ONDANSETRON HCL 4 MG/2 ML VIAL IVP ONE (04:45)
[2022-03-31 05:59] LABS: BLOOD, URINE NEGATIVE (NEGATIVE); CLARITY/URINE CLEAR (CLEAR); COLOR,URINE YELLOW (YELLOW); GLUCOSE,URINE NEGATIVE (NEGATIVE); KETONES,URINE TRACE (NEGATIVE); LEUKOCYTE ESTERASE ,URINE 1+ (NEGATIVE); NITRITE, URINE NEGATIVE (NEGATIVE); PROTEIN URINE NEGATIVE (NEGATIVE); UROBILINOGEN,URINE 0.2 (0.2-1.0)
[2022-03-31 06:12] LABS: BILIRUBIN,URINE NEGATIVE (NEGATIVE)
[2022-03-31 06:15] LABS: BACTERIA,URINE FEW /HPF (None Seen); RBC,URINE 0-3 /HPF (0-3)
[2022-03-31] MEDS ORDERED: AZITHROMYCIN 500 MG/VIAL (ZITHROMAX) IV ONE (06:16)
[2022-03-31] MEDS ORDERED: VANCOMYCIN HCL 1000 MG/VIAL IV ONE (06:16)
--- NOTE | 2022-03-31 06:52 | NUR ---
pt was given the medications beside cefemine since it is not in the stystem. ordered was placed through nursing cabin equipment supervisor and still waiting
--- NOTE | 2022-03-31 07:24 | NUR ---
Admit bed requested Patient will be admitted to care of . Admitted to [telemetry] unit. Diagnosis [bowel obstruction] Inpatient (Yes or No) [yes] Observation (Yes or No) [no] Orientation concerns or request close to nursing station (Yes or No) [no] Covid Status [pending] On vent or bipap [no] Isolation requirements [no] Needs a sitter [no] From Home (Yes or if No enter name of facility) [yes] Requires Dialysis (Yes or No) [yes] Med Rec Completed (Yes of No) [yes]
[2022-03-31] MEDS ORDERED: D5/0.45 NS 1,000 ML IV ONE (07:30)
--- NOTE | 2022-03-31 07:35 | NUR ---
Dr Vilchis at pt bedside (adm doctorP) dr bazan with pt vitals 65 hr afib, 98/44 pb, 97.6 te rr 22 higflow 35L 100% o2 sat 88. pt is arrousable but resting with eyes closed in bed, bed is lowered and locked and rails up. will continue to monitor
[2022-03-31] MEDS: IPRATROPIUM/ALBUTEROL SULFATE 3 ML AMPUL.NEB (DUONEB) INH SCH ×3 (07:45→19:42)
[2022-03-31] MEDS ORDERED: IPRATROPIUM/ALBUTEROL SULFATE 3 ML AMPUL.NEB (DUONEB) INH PRN (07:45)
--- NOTE | 2022-03-31 07:50 | NUR ---
called pharmacy for cefepime 2 gm d5w 100 ml, med not in pixis
[2022-03-31] MEDS: hydrALAZINE HCL 25 MG TABLET PO SCH ×3 (08:00→23:45)
[2022-03-31] MEDS: CALCITONIN SALMON,SYNTHETIC 3.7 ML SPRAY.PUMP NS SCH (09:00)
[2022-03-31] MEDS: GABAPENTIN 300 MG CAPSULE PO SCH ×2 (09:00→21:18)
[2022-03-31] MEDS ORDERED: LOSARTAN POTASSIUM 50 MG TABLET (COZAAR) PO SCH (09:00)
[2022-03-31] MEDS: GEMFIBROZIL 600 MG TABLET (LOPID) PO SCH ×2 (09:00→21:18)
[2022-03-31] MEDS: DULoxetine HCL 30 MG CAPSULE.DR (CYMBALTA) PO SCH (09:00)
[2022-03-31] MEDS ORDERED: MINERAL OIL 133 ML ENEMA RC ONE (09:30)
[2022-03-31] MEDS ORDERED: GOLYTELY / COLYTE SOLUTION 4 LITERS NG ONE (10:00)
--- NOTE | 2022-03-31 12:27 | NUR ---
PT IN BED RESTING WITH EYES CLOSED. BED IS LOWERED, LOCKED AND RAILS UP. WILL CONTINUE TO MONITOR.
[2022-03-31] MEDS ORDERED: MORPHINE 2 MG/ML INJ. SYRINGE IVP PRN (13:15)
[2022-03-31] MEDS ORDERED: NALOXONE HCL 0.4 MG/ML AMP (NARCAN) IVP PRN ×2 (13:15→14:00)
--- NOTE | 2022-03-31 14:36 | NUR ---
PT PLACED ON NON-REBREATHER BY RT ON TOP OF THE HIGH FLOW PT NOW SAT AT 90%O2
--- NOTE | 2022-03-31 16:20 | NUR ---
hydromorphone not given, wastedPT O2 SAT AND BP WERE LOW. MED WASTED
--- NOTE | 2022-03-31 16:21 | NUR ---
Patient will be admitted to care of DR DEGROOT. Admitted to unit. Will go to room . Belongings list completed. Complete and up to date summary report printed. SBAR report to be given at bedside with opportunity for questions.
--- NOTE | 2022-03-31 18:28 | NUR ---
CONSULTS PAGED: DR BADILLO FOR SEPSIS DR BARRY FOR CHF DR WYATT FOR SBO DR RENO FOR SBO
[2022-03-31] MEDS ORDERED: SODIUM PHOSPHATE,MONO-DIBASIC 133 ML ENEMA RC ONE (18:30)
[2022-03-31] MEDS: MEROPENEM 500 MG in NS 50 ML IV SCH (18:40)
--- NOTE | 2022-03-31 19:25 | NUR ---
RECEIVED PT FROM ED JERRY CHAIREZ. PT ARRIVE ON NRB PLUS HFNC 40L 100% WITH O2 SAT 90-94%. PT WITH GARBLED SPEECH, REMOVED OGT AND INSERTED NGT TO RIGHT NARE. PLACEMENT VERIFIED, BROWN GASTRIC CONTENTS ASPIRATED. NAD NOTED. PLACED ON NAIL POLISH BRUSH MACHINE FEEDER WITH AFIB NOTED IN 50'S, SBP 110-120. SKIN W/D/I. IV ACCESS TO BILATERAL ARMS PATENT. LUNG SOUNDS WITH CRACKLES TO BASES. ALL NEEDS ATTENDED TO. CALL LIGHT IN REACH. WILL CONT TO CLOSELY MONITOR.
--- NOTE | 2022-03-31 20:00 | NUR ---
Received shift report from Iván EDWARDS at bedside. Patient eyes closed, resting without signs or symptoms of distress on 40L/100% High flow canula, controlled rate atrial fibrillation heart rate 54, blood pressure stable at 113/63, respirations 23 with saturation 90% patient has no complaints of pain or discomfort. Speech is weak and garbled at times, patient alert to self with baseline dementia. Flat but pleasant affect. Upon assessment lungs are coarse with rhoncii noted right side more congested than left. She has a shaffer cathter that is intact to gravity with low output during prior shift. Two patent IVs are present a #22 in right hand that is saline locked, flushes but without blood return. Second IV is #20 in left AC with a keep vein open running to maintain patency flushes well with blood return noted. Abdomen firm with hypoactive bowel sounds in all quadrants, awaiting arrival of ordered enema. Patient has active order to give 2L of GoLytely patient currently NPO with NG tube in place in right nare to intermittent suction, this RN does not feel confident in pushing this amount of fluid through NG tube, enema will be administered upon arrival of medication. Patient resting comfortably will continue to assess and monitor. Addendum: 03/31/22 at 2341 by [facility] [employer] JERRY Bright RN Orders were for 4L of GoLytely via NG tube.
[2022-03-31] MEDS ORDERED: RIVAROXABAN 15 MG TABLET PO SCH (21:00)
[2022-03-31] MEDS ORDERED: MIRTAZAPINE 15 MG TABLET PO SCH (21:00)
--- NOTE | 2022-03-31 22:55 | NUR ---
[place] RN spoke with Dr. Ortega re: consult for small bowel obstruction present on admission. See new orders for repeat KUB tomorrow morning 04/01/22 at 0700am.
[2022-04-01] VITALS (24 sets, daily range): BP systolic 105–142
[2022-04-01] MEDS: MEROPENEM 500 MG in NS 50 ML IV SCH ×2 (02:22→14:12)
[2022-04-01 06:29] LABS: BASOPHILS % (AUTO) 0.1 % (0.0-2.0); HEMATOCRIT 28.1 % (36-48); HEMOGLOBIN 9.7 g/dL (12.0-16.0); LYMPHOCYTES # (AUTO) 0.5 K/uL (1.0-5.5); LYMPHOCYTES % (AUTO) 3.4 % (20.5-51.5); MEAN CORPUSCULAR HEMOGLOBIN 30 pg (27-31); MEAN CORPUSCULAR HGB CONC 34 % (32-36); MEAN CORPUSCULAR VOLUME 87 fL (79.0-98.0); MONOCYTES # (AUTO) 0.5 K/uL (0.0-1.0); MONOCYTES % (AUTO) 2.9 % (1.7-9.3); NEUTROPHILS # (AUTO) 14.6 K/uL (1.8-7.7); NEUTROPHILS % (AUTO) 93.6 % (40.0-70.0); PLATELET COUNT (AUTO) 226 K/uL (130-430); RED BLOOD CELL COUNT(AUTO) 3.25 MIL/uL (4.2-6.2); RED CELL DISTRIBUTION WIDTH 16.1 % (9.0-15.0); WHITE BLOOD COUNT (AUTO) 15.6 K/uL (4.8-10.8)
[2022-04-01 06:41] LABS: ALBUMIN 2.9 g/dL (3.4-4.8); ANION GAP 8 (5-15); ASPARTATE AMINOTRANSFERASE 23 U/L (10-37); CHLORIDE 99 mmol/L (98-107); CREATININE 3.25 mg/dL (0.55-1.30); GLUCOSE 128 mg/dL (70-99); PHOSPHORUS 5.9 mg/dL (2.7-4.5); POTASSIUM 5.3 mmol/L (3.5-5.1); SODIUM SERUM 135 mmol/L (136-145); TOTAL BILIRUBIN 0.2 mg/dL (0.0-1.0); UREA NITROGEN, BLOOD 64 mg/dL (8-21)
[2022-04-01] MEDS ORDERED: LEVOTHYROXINE SODIUM 0.15 MG TABLET PO SCH (07:00)
[2022-04-01 07:04] LABS: ALANINE AMINOTRANSFERASE 7 U/L (12-78); CALCIUM 8.1 mg/dL (8.4-11.0)
[2022-04-01] MEDS ORDERED: NACL 0.9% 1,000 ML IV ONE (08:15)
[2022-04-01] MEDS ORDERED: MINERAL OIL 30 ML UDC PO ONE ×2 (09:00→21:00)
[2022-04-01] MEDS: DULoxetine HCL 30 MG CAPSULE.DR (CYMBALTA) PO SCH (09:16)
[2022-04-01 09:29] LABS: THYROID STIMULATING HORMONE 1.1 uIu/mL (0.36-3.74)
[2022-04-01] MEDS ORDERED: LEVOTHYROXINE SODIUM 0.2 MG VIAL IVP ONE (09:30)
[2022-04-01] MEDS: CALCITONIN SALMON,SYNTHETIC 3.7 ML SPRAY.PUMP NS SCH (10:11)
[2022-04-01] MEDS: D5/0.45 NS 1,000 ML IV SCH ×2 (10:12→23:06)
--- NOTE | 2022-04-01 12:38 | NUR ---
NOTIFIED OF CONSULT DR. DE SOUZA ORDERING PHY: REASON: ROSS Alfonso DIALED: [phone] SPOKE TO: SHAKA
[2022-04-01 14:23] LABS: ANION GAP 9 (5-15); CALCIUM 7.8 mg/dL (8.4-11.0); CHLORIDE 105 mmol/L (98-107); CREATININE 2.09 mg/dL (0.55-1.30); GLUCOSE 123 mg/dL (70-99); POTASSIUM 4.3 mmol/L (3.5-5.1); SODIUM SERUM 139 mmol/L (136-145); UREA NITROGEN, BLOOD 53 mg/dL (8-21)
[2022-04-01 14:29] LABS: ALANINE AMINOTRANSFERASE 8 U/L (12-78); ALBUMIN 2.7 g/dL (3.4-4.8); ASPARTATE AMINOTRANSFERASE 19 U/L (10-37); TOTAL BILIRUBIN 0.2 mg/dL (0.0-1.0)
--- NOTE | 2022-04-01 16:27 | NUR ---
CORRECTION: 1620 WATER BAG CHANGED. Addendum: 04/01/22 at 1628 by Jocelyn Hansen RT Amended: Links added.
--- NOTE | 2022-04-01 16:27 | NUR ---
1420 HI FLOW WATER BAG CHANGED. Addendum: 04/01/22 at 1627 by Jocelyn Hansen RT Amended: Links added.
[2022-04-01] MEDS: IPRATROPIUM/ALBUTEROL SULFATE 3 ML AMPUL.NEB (DUONEB) INH SCH ×3 (16:29→19:21)
[2022-04-01] MEDS: HYDROmorphone 1 MG/ML INJ. CARTRIDGE IVP PRN ×2 (16:36→23:03)
[2022-04-01] MEDS: APIXABAN 2.5 MG TABLET PO SCH (22:37)
[2022-04-02] VITALS (24 sets, daily range): BP systolic 120–155
[2022-04-02] MEDS ORDERED: QUEtiapine FUMARATE 25 MG TABLET PO ONE (01:15)
[2022-04-02] MEDS: IPRATROPIUM/ALBUTEROL SULFATE 3 ML AMPUL.NEB (DUONEB) INH SCH ×4 (01:55→19:57)
[2022-04-02] MEDS: MEROPENEM 500 MG in NS 50 ML IV SCH ×2 (02:18→14:14)
--- NOTE | 2022-04-02 03:49 | NUR ---
Patient passively passed three extremely large formed stools on bedpan, expressed she "finally felt better". Vital signs stable patient resting comfortably after post bowel movement care.
[2022-04-02 06:26] LABS: BASOPHILS % (AUTO) 0.2 % (0.0-2.0); EOSINOPHILS % (AUTO) 0.2 % (0.0-4.0); HEMATOCRIT 25.5 % (36-48); HEMOGLOBIN 8.6 g/dL (12.0-16.0); LYMPHOCYTES # (AUTO) 0.7 K/uL (1.0-5.5); LYMPHOCYTES % (AUTO) 5.2 % (20.5-51.5); MEAN CORPUSCULAR HEMOGLOBIN 30 pg (27-31); MEAN CORPUSCULAR HGB CONC 34 % (32-36); MEAN CORPUSCULAR VOLUME 88 fL (79.0-98.0); MONOCYTES # (AUTO) 0.6 K/uL (0.0-1.0); MONOCYTES % (AUTO) 4.3 % (1.7-9.3); NEUTROPHILS # (AUTO) 12.8 K/uL (1.8-7.7); NEUTROPHILS % (AUTO) 90.1 % (40.0-70.0); PLATELET COUNT (AUTO) 224 K/uL (130-430); RED BLOOD CELL COUNT(AUTO) 2.91 MIL/uL (4.2-6.2); RED CELL DISTRIBUTION WIDTH 15.5 % (9.0-15.0); WHITE BLOOD COUNT (AUTO) 14.3 K/uL (4.8-10.8)
[2022-04-02 06:50] LABS: ALANINE AMINOTRANSFERASE 3 U/L (12-78); ALBUMIN 2.3 g/dL (3.4-4.8); ANION GAP 7 (5-15); ASPARTATE AMINOTRANSFERASE 16 U/L (10-37); CALCIUM 7.8 mg/dL (8.4-11.0); CHLORIDE 107 mmol/L (98-107); CREATININE 1.18 mg/dL (0.55-1.30); GLUCOSE 101 mg/dL (70-99); LIPASE 186 U/L (73-393); POTASSIUM 3.5 mmol/L (3.5-5.1); SODIUM SERUM 140 mmol/L (136-145); TOTAL BILIRUBIN 0.2 mg/dL (0.0-1.0); UREA NITROGEN, BLOOD 34 mg/dL (8-21)
[2022-04-02] MEDS: CALCITONIN SALMON,SYNTHETIC 3.7 ML SPRAY.PUMP NS SCH (09:06)
[2022-04-02] MEDS: LEVOTHYROXINE SODIUM 0.2 MG VIAL IVP SCH (09:06)
[2022-04-02] MEDS: DULoxetine HCL 30 MG CAPSULE.DR (CYMBALTA) PO SCH (09:06)
[2022-04-02] MEDS: APIXABAN 2.5 MG TABLET PO SCH ×2 (09:10→20:33)
[2022-04-02] MEDS ORDERED: MINERAL OIL 30 ML UDC PO ONE (10:00)
[2022-04-02] MEDS ORDERED: DEXAMETHASONE SOD PHOS 0.1% EYE OR EAR DROPS OT SCH (10:30)
[2022-04-02] MEDS ORDERED: CIPROFLOXACIN HCL OT ONE (11:00)
[2022-04-02] MEDS ORDERED: CIPROFLOXACIN HCL 0.3% EYE DRP 2.5 ML DROPS OT ONE (11:00)
[2022-04-02] MEDS ORDERED: [UNRECOGNIZED DRUG - OTHER] OT ONE (11:00)
[2022-04-02] MEDS ORDERED: DEXAMETHASONE SOD PHOS 0.1% EYE OR EAR DROPS OT ONE (11:00)
[2022-04-02] MEDS: HYDROmorphone 1 MG/ML INJ. CARTRIDGE IVP PRN ×2 (11:28→16:15)
[2022-04-02] MEDS ORDERED: KCL 30mEq in D5/0.45NS 1000 mL 1,000 ML IV SCH (12:15)
[2022-04-02] MEDS ORDERED: FUROSEMIDE 40 MG/4 ML VIAL IVP ONE (12:45)
[2022-04-02] MEDS ORDERED: POTASSIUM CHLORIDE 40 MEQ in D5W 250 ML IV ONE (18:00)
[2022-04-02] MEDS ORDERED: KCL 40 mEq in 100 mL (PREMIX) 0 ML IV ONE (20:10)
[2022-04-02] MEDS: D5W 1,000 ML IV SCH (20:13)
[2022-04-02] MEDS: [UNRECOGNIZED DRUG - OTHER] OT SCH (20:33)
[2022-04-02] MEDS: CIPROFLOXACIN HCL OT SCH (20:33)
--- NOTE | 2022-04-02 20:34 | NUR ---
2030 ELOQUIS DOSE HELD TONIGHT, BLEEDING ON NOSTRIL AND SPUTUM WITH BLOOD STREAK
--- NOTE | 2022-04-02 20:37 | NUR ---
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 Patient noted to have no BM since d/c, and upon assessment, patient found with significant pmh: sepsis, aspir pnu, a.fib, CHF, dementia, HTN, hx stroke x 2, CAD, osteoarthritis, fibromyalgia, YEIMY/CKD, hypothyroisism, HLD, severe PEM, anemia of chronic dz, complicated UTI, s/p cholecyctectomy, and s/p 2 x back surgeries. Subjective Information RD visit deferred d/t high workload. Per RD chart review, ED performed CT chest, indicating b/l pnu and CT abd showing SBO and constipation. Per GI notes, possible SBO however with large amounts of stool in ascending colon. Patient is NPO with ng-tube for suction. 2+ non-pitting BLE edema noted 04/02. Per MD notes/EMR, Fleet's enema given at night on 03/31; mineral oil given 04/01; 2L goLytely provided 04/01. Patient passed 3 x large, formed BM overnight and endorses improvement in pain. Per abdominal xray 04/02 - resolution of SBO and stool. MD now evaluating if SBO was caused by dehydration/constipation or if caused by ileus. Patient will continue to be monitored. Current Diet Order/Nutrition Support: NPO x 2; NGT placed for suction Patient/Significant Other Able To Verbalize Education Provided Not Indicated Pertinent Medications thyroxine, eliquis, dilauded, cymbalta, calcitonin Pertinent Labs RBC 2.91L and h/h 8.6/25.5L - worsening; Alb 2.3,Ca 7.8L, Bun 34H, glu 101H Height (Feet) 5 feet Height (Inches) 6.00 inches Weight (Pounds) 216 pounds Weight (Calculated Kilograms) 97.094063 kilograms Patient Weight 97.976 kg Body Mass Index 34.86 kg/m2 %IBW 166 [place]/Adjusted Body Weight 130lb/ 59kg Recent Weight Change Unable to assess Weight Status Obese Gastrointestinal Symptoms Constipation Last BM Apr 02, 2022 Food Allergies None noted Usual Diet At Home Unable to assess Skin Integrity Comment: Mansoor 14: erythema posterios r-buttock 2+ non-pitting BLE edema noted 04/02 Current % PO 0% - NPO Estimated Energy Expenditure (kcals/day) 9078-5504 (30-35 kcal/kg IBW d/t sepsis, BMI 34.9) Estimated Protein Required (g/day) 88-106 (1.5-1.8 g/kg IBW d/t sepsis, BMI 34.9) Estimated Fluid Required (l/day) 1.7-2.0 (1 mL/kcal for maintenance) or per MD Problem/Etiology/Signs/Symptoms * Inadequate oral intake r/t SBO, abdominal pain a/e/b NPO x 2 (Initial) * Altered GI function r/t SBO a/e/b constipation, abdominal pain, 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 Yes Malnutrition Recommendations by RD Increase Calorie Intake Protein Supplementation Malnutrition Comment Pt qualifies for moderate-severe PEM in the context of chronic illness Addendum: 04/02/22 at [address] Amended: Links added.
--- NOTE | 2022-04-02 20:39 | NUR ---
Dietitian Recommendations * When medically appropriate, consider advance to soft GI diet * Ensure Enlive BID * Rec daily MVI * Continue bowel regimen per MD Please refer to nutrition assessment for details, thanks! CC, MPH, RDN
[2022-04-03] VITALS (24 sets, daily range): BP systolic 146–181
[2022-04-03] MEDS: HYDROmorphone 1 MG/ML INJ. CARTRIDGE IVP PRN ×3 (00:10→16:32)
[2022-04-03] MEDS: IPRATROPIUM/ALBUTEROL SULFATE 3 ML AMPUL.NEB (DUONEB) INH SCH ×4 (01:15→19:40)
[2022-04-03] MEDS: MEROPENEM 500 MG in NS 50 ML IV SCH ×2 (02:00→14:03)
[2022-04-03 06:06] LABS: BASOPHILS % (AUTO) 0.3 % (0.0-2.0); EOSINOPHILS # (AUTO) 0.1 K/uL (0.0-0.4); EOSINOPHILS % (AUTO) 0.5 % (0.0-4.0); LYMPHOCYTES # (AUTO) 0.9 K/uL (1.0-5.5); LYMPHOCYTES % (AUTO) 7.9 % (20.5-51.5); MEAN CORPUSCULAR HEMOGLOBIN 30 pg (27-31); MEAN CORPUSCULAR HGB CONC 34 % (32-36); MONOCYTES # (AUTO) 0.6 K/uL (0.0-1.0); MONOCYTES % (AUTO) 5.1 % (1.7-9.3); NEUTROPHILS # (AUTO) 10.1 K/uL (1.8-7.7); NEUTROPHILS % (AUTO) 86.2 % (40.0-70.0); PLATELET COUNT (AUTO) 229 K/uL (130-430); RED BLOOD CELL COUNT(AUTO) 3.02 MIL/uL (4.2-6.2); RED CELL DISTRIBUTION WIDTH 15.6 % (9.0-15.0); WHITE BLOOD COUNT (AUTO) 11.7 K/uL (4.8-10.8)
[2022-04-03 06:46] LABS: ALANINE AMINOTRANSFERASE 7 U/L (12-78); ALBUMIN 2.4 g/dL (3.4-4.8); ANION GAP 5 (5-15); ASPARTATE AMINOTRANSFERASE 8 U/L (10-37); CALCIUM 8.5 mg/dL (8.4-11.0); CHLORIDE 105 mmol/L (98-107); CREATININE 0.64 mg/dL (0.55-1.30); GLUCOSE 85 mg/dL (70-99); POTASSIUM 3.5 mmol/L (3.5-5.1); SODIUM SERUM 140 mmol/L (136-145); TOTAL BILIRUBIN 0.4 mg/dL (0.0-1.0); UREA NITROGEN, BLOOD 16 mg/dL (8-21)
--- NOTE | 2022-04-03 06:47 | NUR ---
UNEVENTFUL NIGHT C/O PAIN ISABEL ON LT EAR OTODROPS GIVEN AND PAIN MEDS GIVEN. VSS, AFEBRILE.
[2022-04-03] MEDS ORDERED: DIATR MEGLU/DIATRIZ SOD 30 ML SOLUTION PO ONE (07:54)
[2022-04-03] MEDS ORDERED: GASTROGRAFIN 120 ML ONE (08:06)
[2022-04-03 08:12] LABS: MEAN CORPUSCULAR VOLUME 86 fL (79.0-98.0)
[2022-04-03] MEDS: MINERAL OIL 30 ML UDC PO SCH (08:41)
[2022-04-03] MEDS: LEVOTHYROXINE SODIUM 0.2 MG VIAL IVP SCH (08:47)
[2022-04-03] MEDS: CALCITONIN SALMON,SYNTHETIC 3.7 ML SPRAY.PUMP NS SCH (08:47)
[2022-04-03] MEDS: DULoxetine HCL 30 MG CAPSULE.DR (CYMBALTA) PO SCH (08:48)
[2022-04-03] MEDS: CIPROFLOXACIN HCL OT SCH ×2 (08:48→21:15)
[2022-04-03] MEDS: APIXABAN 2.5 MG TABLET PO SCH ×2 (08:48→21:17)
[2022-04-03] MEDS: [UNRECOGNIZED DRUG - OTHER] OT SCH ×2 (08:48→21:15)
[2022-04-03] MEDS ORDERED: FUROSEMIDE 20 MG/2 ML VIAL IVP ONE (10:00)
[2022-04-03] MEDS: ONDANSETRON HCL 4 MG/2 ML VIAL IVP PRN ×2 (11:53→16:32)
--- NOTE | 2022-04-03 13:15 | NUR ---
MD WYATT CALLED UNIT FROM GENERAL SURGERY, STATED HE RECEIVED XRAY BOWEL SERIES RESULTS. PT OK TO EAT FULL LIQUID DIET AND OK TO D/C NGT. PT VSS. NAD NOTED. TO ENTER TELEPHONE ORDERS WITH READ BACK. WILL CONT TO MONITOR PT.
[2022-04-03] MEDS ORDERED: POTASSIUM CHLORIDE 40 MEQ in D5W 250 ML IV ONE (13:30)
[2022-04-03] MEDS: D5W 1,000 ML IV SCH (14:04)
[2022-04-04] VITALS (24 sets, daily range): BP systolic 125–190
[2022-04-04] MEDS: IPRATROPIUM/ALBUTEROL SULFATE 3 ML AMPUL.NEB (DUONEB) INH SCH ×4 (01:29→20:58)
[2022-04-04] MEDS: MEROPENEM 500 MG in NS 50 ML IV SCH (02:39)
--- NOTE | 2022-04-04 06:23 | NUR ---
S/B DR WYATT THIS AM ADVICE ADVANCE TO SOFT DIET, PT HAD A GOOD NIGHT SLEPT WELL NO PAIN MEDS GIVEN, O2 SUPPORT HF 25l 90%.VSS GOOD OUTPUT.
[2022-04-04 06:41] LABS: BASOPHILS % (AUTO) 0.2 % (0.0-2.0); EOSINOPHILS # (AUTO) 0.2 K/uL (0.0-0.4); EOSINOPHILS % (AUTO) 1.6 % (0.0-4.0); HEMATOCRIT 28.8 % (36-48); HEMOGLOBIN 9.6 g/dL (12.0-16.0); LYMPHOCYTES # (AUTO) 1.1 K/uL (1.0-5.5); LYMPHOCYTES % (AUTO) 8.6 % (20.5-51.5); MEAN CORPUSCULAR HEMOGLOBIN 29 pg (27-31); MEAN CORPUSCULAR HGB CONC 33 % (32-36); MEAN CORPUSCULAR VOLUME 87 fL (79.0-98.0); MONOCYTES # (AUTO) 0.6 K/uL (0.0-1.0); NEUTROPHILS # (AUTO) 10.5 K/uL (1.8-7.7); NEUTROPHILS % (AUTO) 84.6 % (40.0-70.0); PLATELET COUNT (AUTO) 236 K/uL (130-430); RED BLOOD CELL COUNT(AUTO) 3.33 MIL/uL (4.2-6.2); RED CELL DISTRIBUTION WIDTH 15.2 % (9.0-15.0); WHITE BLOOD COUNT (AUTO) 12.5 K/uL (4.8-10.8)
--- NOTE | 2022-04-04 07:10 | NUR ---
Received report from thien Shah RN and assumed patient care.
--- NOTE | 2022-04-04 07:26 | NUR ---
GI (Dr. Nation) at bedside, no new orders noted at the moment, and will reinforce if needed throughout the shift.
[2022-04-04 07:27] LABS: ANION GAP 5 (5-15); ASPARTATE AMINOTRANSFERASE 9 U/L (10-37); CALCIUM 8.8 mg/dL (8.4-11.0); CHLORIDE 104 mmol/L (98-107); CREATININE 0.63 mg/dL (0.55-1.30); GLUCOSE 93 mg/dL (70-99); PHOSPHORUS 2.4 mg/dL (2.7-4.5); POTASSIUM 3.3 mmol/L (3.5-5.1); SODIUM SERUM 139 mmol/L (136-145); TOTAL BILIRUBIN 0.4 mg/dL (0.0-1.0); UREA NITROGEN, BLOOD 12 mg/dL (8-21)
--- NOTE | 2022-04-04 07:33 | NUR ---
Dr. Ramirez at bedside, MD is aware of patient's SBP running from 160-190s with patient not complaining of pain. MD will place BP medications to help maintain SBP within patient's range, no additional orders noted at the moment and will wait for [facility] to verify medications.
[2022-04-04] MEDS: DULoxetine HCL 30 MG CAPSULE.DR (CYMBALTA) PO SCH (08:03)
[2022-04-04] MEDS: APIXABAN 2.5 MG TABLET PO SCH ×2 (08:04→20:29)
[2022-04-04] MEDS: LEVOTHYROXINE SODIUM 0.2 MG VIAL IVP SCH (08:04)
[2022-04-04] MEDS: MINERAL OIL 30 ML UDC PO SCH (08:04)
[2022-04-04] MEDS: [UNRECOGNIZED DRUG - OTHER] OT SCH ×2 (08:05→20:31)
[2022-04-04] MEDS: CIPROFLOXACIN HCL OT SCH ×2 (08:05→20:31)
[2022-04-04] MEDS: CALCITONIN SALMON,SYNTHETIC 3.7 ML SPRAY.PUMP NS SCH (08:05)
--- NOTE | 2022-04-04 08:50 | NUR ---
Encouraged patient to turn, cough, and deep breath as much as patient can tolerate and the use of call light if patient requires assistance. Patient showed attention upon education, and will reinforce education throughout the shift if needed. No new questions noted at the moment and will reinforce if needed throughout the shift.
[2022-04-04] MEDS ORDERED: FUROSEMIDE 20 MG/2 ML VIAL IVP SCH (09:00)
[2022-04-04 09:08] LABS: ALANINE AMINOTRANSFERASE 8 U/L (12-78)
[2022-04-04] MEDS: D5W 1,000 ML IV SCH (09:21)
--- NOTE | 2022-04-04 09:23 | NUR ---
Spoke to Dr. Lyman on the phone regarding patient's most current ABG levels (please see EMR for further details), MD is OK with current settings on the HF NC (90% 20L), MD is aware of patient's potassium of 3.3 and ordered medications to replace electrolytes, MD also ordered for additional scans to rule out of DVT (please see orders for further details). No additional orders noted at the moment, and will reinforce if needed throughout the shift.
[2022-04-04] MEDS ORDERED: POTASSIUM CHLORIDE 20 MEQ/PKT PACKET PO ONE (09:30)
[2022-04-04] MEDS ORDERED: FUROSEMIDE 40 MG/4 ML VIAL IVP ONE (10:15)
--- NOTE | 2022-04-04 10:20 | NUR ---
Dr. Marquez rounded at bedside, MD is aware of abnormal lab values (please see EMR for further details), MD placed ordered to replace electrolytes and will wait for [facility] to verify medications. No additional orders noted at the moment, will reinforce if needed throughout the shift. Addendum: 04/04/22 at 1111 by [facility], JERRY EDWARDS MD is aware of patient being able to tolerate the liquid diet from yesterday's order, but MD insist in obtaining swallow evaluation due to patient coughing and possibly aspirate on current diet's order. Informed patient about the care plan and patient understands teaching, and will reinforce if needed throughout the shift.
[2022-04-04] MEDS ORDERED: K PHOS 15 MM in NS 250 ML IV ONE (10:30)
[2022-04-04] MEDS ORDERED: AMIODARONE HCL 200 MG TABLET PO ONE (10:30)
--- NOTE | 2022-04-04 11:09 | NUR ---
Patient had a large loose BM, performed CHG bath and changed linens patient was able to assist with turns and tolerated the big turns. No other complications noted during the process, and will reinforce if needed throughout the shift. sensor technician at bedside for lower extremities doppler studies.
[2022-04-04] MEDS: METHYLPREDNISOLONE SOD SUCC 40 MG/ML VIAL IVP SCH ×3 (11:33→21:51)
--- NOTE | 2022-04-04 12:05 | NUR ---
Patient's family member is at bedside, provided nursing updates and had no further questions noted at the moment and will reinforce if needed throughout the shift.
--- NOTE | 2022-04-04 13:16 | NUR ---
Dr. Marquez at bedside and provided medical updates to patient's daughter (Coleen), no further questions noted at the moment and will reinforce if needed throughout the shift.
[2022-04-04] MEDS: MEROPENEM 1 GM in NS 100 ML IV SCH (13:30)
--- NOTE | 2022-04-04 16:10 | NUR ---
Speech therapist at bedside, evaluated the patient and said will place order of ordered diet. No additional orders noted at the moment, will reinforce if needed throughout the shift.
--- NOTE | 2022-04-04 16:28 | NUR ---
ST EVALUATION COMPLETED. ST TX NOT INDICATED AT THIS TIME. RECOMMEND PO DIET OF PUREE/NECTAR THICK LIQUIDS. 1:1 ASSISTANCE AND FULL ASPIRATION PRECAUTIONS.
--- NOTE | 2022-04-04 16:33 | NUR ---
VQ Scan tech at bedside, no complications noted at the moment will reinforce if needed throughout the shift.
[2022-04-04] MEDS: FUROSEMIDE 20 MG/2 ML VIAL IVP SCH (20:29)
[2022-04-04] MEDS: AMIODARONE HCL 200 MG TABLET PO SCH (20:30)
[2022-04-04] MEDS: KCL 20 mEq in 100 mL (PREMIX) 100 ML IV SCH (20:30)
[2022-04-05] VITALS (25 sets, daily range): BP systolic 145–191
[2022-04-05] MEDS: IPRATROPIUM/ALBUTEROL SULFATE 3 ML AMPUL.NEB (DUONEB) INH SCH ×4 (01:45→19:35)
[2022-04-05] MEDS: MEROPENEM 1 GM in NS 100 ML IV SCH ×2 (04:09→13:05)
[2022-04-05] MEDS: METHYLPREDNISOLONE SOD SUCC 40 MG/ML VIAL IVP SCH ×3 (05:34→20:26)
--- NOTE | 2022-04-05 06:35 | NUR ---
VQ SCAN NEGATIVE, TOLERATING HF 20L AT 90% VSS NO REST DISTRESS, SEPT WELL AND QUITE ALL NIGHT HAD 1X BM. OUTPUT-700ML
[2022-04-05 06:55] LABS: BASOPHILS % (AUTO) 0.2 % (0.0-2.0); HEMATOCRIT 30.8 % (36-48); HEMOGLOBIN 10.5 g/dL (12.0-16.0); LYMPHOCYTES # (AUTO) 0.5 K/uL (1.0-5.5); LYMPHOCYTES % (AUTO) 8.9 % (20.5-51.5); MEAN CORPUSCULAR HEMOGLOBIN 29 pg (27-31); MEAN CORPUSCULAR HGB CONC 34 % (32-36); MEAN CORPUSCULAR VOLUME 85 fL (79.0-98.0); MONOCYTES # (AUTO) 0.1 K/uL (0.0-1.0); MONOCYTES % (AUTO) 1.2 % (1.7-9.3); NEUTROPHILS # (AUTO) 5.1 K/uL (1.8-7.7); NEUTROPHILS % (AUTO) 89.7 % (40.0-70.0); PLATELET COUNT (AUTO) 268 K/uL (130-430); RED BLOOD CELL COUNT(AUTO) 3.61 MIL/uL (4.2-6.2); RED CELL DISTRIBUTION WIDTH 14.9 % (9.0-15.0); WHITE BLOOD COUNT (AUTO) 5.6 K/uL (4.8-10.8)
--- NOTE | 2022-04-05 07:20 | NUR ---
Received report from JERRY Shah and assumed patient care.
[2022-04-05 07:36] LABS: ANION GAP 10 (5-15); CALCIUM 9.5 mg/dL (8.4-11.0); CHLORIDE 103 mmol/L (98-107); CREATININE 0.73 mg/dL (0.55-1.30); GLUCOSE 128 mg/dL (70-99); PHOSPHORUS 3.4 mg/dL (2.7-4.5); POTASSIUM 4.2 mmol/L (3.5-5.1); SODIUM SERUM 139 mmol/L (136-145); UREA NITROGEN, BLOOD 22 mg/dL (8-21)
[2022-04-05] MEDS: KCL 20 mEq in 100 mL (PREMIX) 100 ML IV SCH ×2 (08:28→20:21)
[2022-04-05] MEDS: FUROSEMIDE 20 MG/2 ML VIAL IVP SCH ×2 (08:29→20:22)
[2022-04-05] MEDS: DULoxetine HCL 30 MG CAPSULE.DR (CYMBALTA) PO SCH (08:29)
[2022-04-05] MEDS: LEVOTHYROXINE SODIUM 0.1 MG VIAL IVP SCH (08:30)
[2022-04-05] MEDS: MINERAL OIL 30 ML UDC PO SCH (08:30)
[2022-04-05] MEDS: APIXABAN 2.5 MG TABLET PO SCH ×2 (08:30→20:22)
[2022-04-05] MEDS: CALCITONIN SALMON,SYNTHETIC 3.7 ML SPRAY.PUMP NS SCH (08:31)
[2022-04-05] MEDS: CIPROFLOXACIN HCL OT SCH ×2 (08:31→20:24)
[2022-04-05] MEDS: [UNRECOGNIZED DRUG - OTHER] OT SCH ×2 (08:31→20:24)
--- NOTE | 2022-04-05 08:45 | NUR ---
Dr. Ramirez rounded at bedside, MD is aware of patient's SBP in the 160-190s waiting for orders for BP medications, patient does not state she is in pain, relocated the BP cuff to different location and still reading in the 160-190s. MD is aware and will place order if needed throughout the shift, will reinforce if needed throughout the shift.
[2022-04-05] MEDS ORDERED: FUROSEMIDE 40 MG/4 ML VIAL IVP SCH (09:00)
[2022-04-05] MEDS: AMIODARONE HCL 200 MG TABLET PO SCH ×2 (09:26→20:23)
--- NOTE | 2022-04-05 10:04 | NUR ---
0847 PT TITRATED TO 80% FIO2. SAT 94% WILL CONT TO MONITOR, RN AWARE. Addendum: 04/05/22 at 1006 by Jocelyn Hansen RT Amended: Links added.
--- NOTE | 2022-04-05 11:00 | NUR ---
Patient complained of 10/10 pain in the abdomen (please see emar for further details), provided non-pharmacological interventions performed prior to medications but patient continues to ask for pain medication. No other complications noted at the moment, vital signs were performed prior to medications (please see vital signs section for further details). Dr. Lyman rounded at bedside, MD is aware of the titration on the HF NC to 80% 20L, MD is OK with titrations and is OK to continue if patient tolerates regarding saturations. MD is aware of elevated SBP in the 160-190s, will wait for Dr. Ramirez's order. No new orders noted at the moment, RT is aware of the MD's OK to titrate down on HF NC.
[2022-04-05] MEDS: HYDROmorphone 1 MG/ML INJ. CARTRIDGE IVP PRN (11:09)
--- NOTE | 2022-04-05 12:00 | NUR ---
Patient's family member at bedside, provided nursing updates and had no further questions noted at the moment will reinforce if needed throughout the shift.
--- NOTE | 2022-04-05 13:10 | NUR ---
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 Patient noted to have no BM since d/c, and upon assessment, patient found with significant pmh: sepsis, aspir pnu, a.fib, CHF, dementia, HTN, hx stroke x 2, CAD, osteoarthritis, fibromyalgia, YEIMY/CKD, hypothyroisism, HLD, severe PEM, anemia of chronic dz, complicated UTI, s/p cholecystectomy, and s/p 2 x back surgeries. Subjective Information: RD rounded to ICU and spoke w/ pt's primary RN. RN reported that pt has been eating between 40-50% of meals without difficulty chewing/swallowing. She also reported BM x1 today. Pt was undergoing care by RT at time of RD rounds. Bedside visit deferred. Per EMR review, pt is on 20 L O2 via HFNC; fair appetite; active bowel sounds; seen by ST for swallow eval 04/04, at which time, ST rec for pureed, NTL diet and 1:1 assistance and full aspiration precautions. Current diet is appropriate, though encouragement at meal times during 1:1 assistance is warranted to optimize nutritional status. Current Diet Order/Nutrition Support: Pureed, NTL x1 day Education Provided Not Indicated Pertinent Medications: synthroid, solu-medrol, lasix, zofran, mineral oil, eliquis Pertinent Labs: BUN 22 H, BG 128 H Height (Feet) 5 feet Height (Inches) 6.00 inches Weight (Pounds) 216 pounds -- stable since 04/02 Patient Weight 97.976 kg Body Mass Index 34.86 kg/m2 %IBW 166 [place]/Adjusted Body Weight 130lb/59kg Recent Weight Change Unable to assess Weight Status Obese Last BM LBM x1 today per RN report Food Allergies None noted Usual Diet At Home Unable to assess Skin Integrity Comment: Mansoor sclae: 14 w/ posterior R buttocks erythema and bilat leg 1+ non-pitting edema per E MR review Current % PO 50% x3 meal records Estimated Energy Expenditure (kcals/day) 0518-5194 (30-35 kcal/kg IBW d/t sepsis, BMI 34.9) Estimated Protein Required (g/day) 88-106 (1.5-1.8 g/kg IBW d/t sepsis, BMI 34.9) Estimated Fluid Required (l/day) 1.7-2.0 (1 mL/kcal for maintenance) or per MD Problem/Etiology/Signs/Symptoms Inadequate oral intake r/t SBO, abdominal pain a/e/b NPO x 2. 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 *Ongoing Expected Outcomes/Goals Nutrition initiated w/in 1-2 days, improvements in GI function, nutrition related labs WNL, skin integrity, wt stable during admit Dietitian Recommendations * Continue Pureed, NTL diet as per ST rec (ONS Ensure Enlive TID comes standard w/ current diet; yields 1050 kcal/day, 60 gm protein/day) * Encourage increase PO intakes during 1:1 assistance at meal times Follow Up High Risk: F/U in 2-3 days
--- NOTE | 2022-04-05 13:20 | NUR ---
Dietitian Recommendations * Continue Pureed, NTL diet as per ST rec (ONS Ensure Enlive TID comes standard w/ current diet; yields 1050 kcal/day, 60 gm protein/day) * Encourage increase PO intakes during 1:1 assistance at meal times LP, MS, RD Please refer to Nutrition F/U for details.
--- NOTE | 2022-04-05 14:03 | NUR ---
PT WAS SEEN F OR DYSPHAGIA. PT WAS ABLE TO SAFELY SWALLOW PUREED DIET WITH NECTAR THICK LIQUID. MILD COUGH FOR THIN LIQUID. RECOMMENDATION PUREE DIET WITH NTL
--- NOTE | 2022-04-05 15:00 | NUR ---
Performed CHG bath on patient, patient had smear and linens were changed, patient tolerated the big turns and had no complications during the process. Will reinforce if needed throughout the shift.
[2022-04-05] MEDS ORDERED: SPIRONOLACTONE 25 MG TABLET (ALDACTONE) PO ONE (16:00)
--- NOTE | 2022-04-05 16:00 | NUR ---
Dr. Marquez rounded at bedside, informed MD about patient's SBP ranging 160-190s despite informing Dr. Ramirez in the morning about elevated SBP, patient does not complain of pain and was given pain medication prior in the shift however patient's SBP still ranging in the 160-190s. Dr. Marquez will place BP medications, and will wait for [facility] to verify medication. No additional orders noted at the moment, will reinforce if needed throughout the shift.
--- NOTE | 2022-04-05 17:00 | NUR ---
Patient had a medium BM, changed linens and cleaned patient up. Patient was able to assist in turns, no complications noted during the cleaning process. Will reinforce if needed throughout the shift.
[2022-04-05] MEDS: SACUBITRIL/VALSARTAN 24 MG-26 MG 1 TABLET PO SCH (20:21)
[2022-04-06] VITALS (24 sets, daily range): BP systolic 121–170
[2022-04-06] MEDS: IPRATROPIUM/ALBUTEROL SULFATE 3 ML AMPUL.NEB (DUONEB) INH SCH ×4 (01:25→19:45)
[2022-04-06] MEDS: MEROPENEM 1 GM in NS 100 ML IV SCH ×2 (01:34→13:25)
[2022-04-06] MEDS: METHYLPREDNISOLONE SOD SUCC 40 MG/ML VIAL IVP SCH ×3 (05:25→21:21)
[2022-04-06] MEDS: cloNIDine HCL 0.1 MG TABLET PO PRN (06:14)
[2022-04-06 06:46] LABS: BASOPHILS % (AUTO) 0.1 % (0.0-2.0); HEMATOCRIT 30.8 % (36-48); HEMOGLOBIN 10.5 g/dL (12.0-16.0); LYMPHOCYTES # (AUTO) 0.6 K/uL (1.0-5.5); MEAN CORPUSCULAR HEMOGLOBIN 29 pg (27-31); MEAN CORPUSCULAR HGB CONC 34 % (32-36); MEAN CORPUSCULAR VOLUME 85 fL (79.0-98.0); MONOCYTES # (AUTO) 0.3 K/uL (0.0-1.0); MONOCYTES % (AUTO) 3.6 % (1.7-9.3); NEUTROPHILS % (AUTO) 89.3 % (40.0-70.0); PLATELET COUNT (AUTO) 342 K/uL (130-430); RED BLOOD CELL COUNT(AUTO) 3.64 MIL/uL (4.2-6.2); RED CELL DISTRIBUTION WIDTH 14.5 % (9.0-15.0)
--- NOTE | 2022-04-06 07:08 | NUR ---
opening notes: received report from endorsing night monitor RN for continuity of care, patient lying on bed, on HFNC 20L ,80%, shaffer catheter in place, vicky urine in color draining to gravity, vital signs heart rate 70, respiratory rate 21, oxygen saturation 96, blood pressure 170/58, temperature 97.8. no signs of acute distress noted at this time.will continue to monitor. Dr. Ramirez is at the bedside assessing the patient.
[2022-04-06 07:28] LABS: ALANINE AMINOTRANSFERASE 8 U/L (12-78); ALBUMIN 2.5 g/dL (3.4-4.8); ANION GAP 7 (5-15); ASPARTATE AMINOTRANSFERASE 7 U/L (10-37); CHLORIDE 102 mmol/L (98-107); CREATININE 0.69 mg/dL (0.55-1.30); GLUCOSE 119 mg/dL (70-99); POTASSIUM 3.8 mmol/L (3.5-5.1); SODIUM SERUM 137 mmol/L (136-145); TOTAL BILIRUBIN 0.5 mg/dL (0.0-1.0); UREA NITROGEN, BLOOD 24 mg/dL (8-21)
[2022-04-06] MEDS: KCL 20 mEq in 100 mL (PREMIX) 100 ML IV SCH ×2 (09:08→21:20)
[2022-04-06] MEDS: FUROSEMIDE 20 MG/2 ML VIAL IVP SCH ×2 (09:14→21:20)
[2022-04-06] MEDS: LEVOTHYROXINE SODIUM 0.1 MG VIAL IVP SCH (09:18)
[2022-04-06] MEDS: AMIODARONE HCL 200 MG TABLET PO SCH ×2 (09:26→21:21)
[2022-04-06] MEDS: APIXABAN 2.5 MG TABLET PO SCH ×2 (09:26→21:22)
[2022-04-06] MEDS: DULoxetine HCL 30 MG CAPSULE.DR (CYMBALTA) PO SCH (09:28)
[2022-04-06] MEDS: SPIRONOLACTONE 25 MG TABLET (ALDACTONE) PO SCH (09:28)
[2022-04-06] MEDS: MINERAL OIL 30 ML UDC PO SCH (09:29)
[2022-04-06] MEDS: SACUBITRIL/VALSARTAN 24 MG-26 MG 1 TABLET PO SCH ×2 (09:29→21:22)
[2022-04-06] MEDS: CIPROFLOXACIN HCL OT SCH ×2 (09:33→21:21)
[2022-04-06] MEDS: [UNRECOGNIZED DRUG - OTHER] OT SCH ×2 (09:33→21:21)
[2022-04-06] MEDS: CALCITONIN SALMON,SYNTHETIC 3.7 ML SPRAY.PUMP NS SCH (09:36)
--- NOTE | 2022-04-06 11:47 | NUR ---
1147 TITRATED FIO2 TO .75 SAT 93% WILL CONT TO MONITOR, RN AWARE. Addendum: 04/06/22 at 1148 by Jocelyn Hansen RT Amended: Links added.
--- NOTE | 2022-04-06 11:47 | NUR ---
patient is on HFNC 20L, 75%. bedside care rendered and provided CHG bath.
[2022-04-06] MEDS: HYDROmorphone 1 MG/ML INJ. CARTRIDGE IVP PRN (18:30)
[2022-04-07] VITALS (24 sets, daily range): BP systolic 133–162
[2022-04-07] MEDS: HYDROmorphone 1 MG/ML INJ. CARTRIDGE IVP PRN (00:10)
[2022-04-07] MEDS: IPRATROPIUM/ALBUTEROL SULFATE 3 ML AMPUL.NEB (DUONEB) INH SCH ×4 (01:15→19:50)
[2022-04-07] MEDS: MEROPENEM 1 GM in NS 100 ML IV SCH (01:25)
[2022-04-07 07:05] LABS: BASOPHILS % (AUTO) 0.1 % (0.0-2.0); HEMATOCRIT 29.6 % (36-48); HEMOGLOBIN 10.3 g/dL (12.0-16.0); LYMPHOCYTES # (AUTO) 0.6 K/uL (1.0-5.5); LYMPHOCYTES % (AUTO) 6.1 % (20.5-51.5); MEAN CORPUSCULAR HEMOGLOBIN 29 pg (27-31); MEAN CORPUSCULAR HGB CONC 35 % (32-36); MEAN CORPUSCULAR VOLUME 84 fL (79.0-98.0); MONOCYTES # (AUTO) 0.3 K/uL (0.0-1.0); MONOCYTES % (AUTO) 3.4 % (1.7-9.3); NEUTROPHILS # (AUTO) 8.1 K/uL (1.8-7.7); NEUTROPHILS % (AUTO) 90.4 % (40.0-70.0); PLATELET COUNT (AUTO) 367 K/uL (130-430)
[2022-04-07 08:06] LABS: ANION GAP 8 (5-15); CALCIUM 8.7 mg/dL (8.4-11.0); CHLORIDE 100 mmol/L (98-107); CREATININE 0.74 mg/dL (0.55-1.30); GLUCOSE 134 mg/dL (70-99); PHOSPHORUS 3.4 mg/dL (2.7-4.5); SODIUM SERUM 135 mmol/L (136-145); UREA NITROGEN, BLOOD 31 mg/dL (8-21)
[2022-04-07] MEDS: DULoxetine HCL 30 MG CAPSULE.DR (CYMBALTA) PO SCH (09:48)
[2022-04-07] MEDS: KCL 20 mEq in 100 mL (PREMIX) 100 ML IV SCH ×2 (09:48→22:04)
[2022-04-07] MEDS: MINERAL OIL 30 ML UDC PO SCH (09:48)
[2022-04-07] MEDS: APIXABAN 2.5 MG TABLET PO SCH ×2 (09:49→21:59)
[2022-04-07] MEDS: SACUBITRIL/VALSARTAN 24 MG-26 MG 1 TABLET PO SCH ×2 (09:50→22:10)
[2022-04-07] MEDS: SPIRONOLACTONE 25 MG TABLET (ALDACTONE) PO SCH (09:50)
[2022-04-07] MEDS: AMIODARONE HCL 200 MG TABLET PO SCH ×2 (09:50→22:02)
[2022-04-07] MEDS: methylPREDNISolone SOD SUCC/PF 62.5 MG/ML VIAL IVP SCH ×2 (09:51→22:02)
[2022-04-07] MEDS: FUROSEMIDE 20 MG/2 ML VIAL IVP SCH ×2 (09:51→22:03)
[2022-04-07] MEDS: LEVOTHYROXINE SODIUM 0.1 MG VIAL IVP SCH (09:53)
[2022-04-07] MEDS: CALCITONIN SALMON,SYNTHETIC 3.7 ML SPRAY.PUMP NS SCH (09:55)
[2022-04-07] MEDS: [UNRECOGNIZED DRUG - OTHER] OT SCH ×2 (09:56→21:00)
[2022-04-07] MEDS: CIPROFLOXACIN HCL OT SCH ×2 (09:56→21:00)
--- NOTE | 2022-04-07 19:19 | NUR ---
RECEIVED REPORT FROM ADELA EDWARDS. PATIENT IN BED ON OXYMISER 5L OXYGEN SATURATION 88% RESPIRATIONS 28/MIN HEART RATE 76 BLOOD PRESSURE 156/64 NO SIGNS OR SYMPTOMS OF DISTRESS. PATIENT REQUESTING HER "HOME SLEEPING PILL" SHE STATES SHE HAS NOT BEEN ABLE TO SLEEP SINCE ADMISSION. DR. DEGROOT ARRIVED AT BEDSIDE SHORTLY AFTER REPORT AND GAVE VERBAL ORDER FOR 5MG AMBIEN HS PRN FOR SLEEP, HE VERIFIED WITH PATIENT VERBALLY THAT THIS IS HER HOME DOSE NOTED IN CHART. PATIENT AGREED AND VERY HAPPY THAT SHE "FINALLY WILL GET SOME SLEEP HERE" STATED "IF I DON'T GET MY PILL I'M WALKING HOME I LIVE JUST [place]OSS [address], OR ELSE MY DAUGHTER WILL BRING ME MY PILLS FROM HOME SO I CAN TAKE THEM WHENEVER I NEED TO GET SOME REST SINCE NOBODY HERE LISTENS TO ME". WILL CONTINUE TO MONITOR PATIENT STABLE AT THIS TIME.
[2022-04-07] MEDS ORDERED: ZOLPIDEM TARTRATE 5 MG TABLET ONE (20:18)
[2022-04-07] MEDS: CEFEPIME 2 GM in D5W 100 ML IV SCH (22:05)
[2022-04-08] VITALS (19 sets, daily range): BP systolic 140–170
[2022-04-08] MEDS: IPRATROPIUM/ALBUTEROL SULFATE 3 ML AMPUL.NEB (DUONEB) INH SCH ×4 (01:35→20:12)
[2022-04-08 07:34] LABS: BASOPHILS % (AUTO) 0.2 % (0.0-2.0); HEMATOCRIT 32.2 % (36-48); HEMOGLOBIN 11.1 g/dL (12.0-16.0); LYMPHOCYTES # (AUTO) 0.7 K/uL (1.0-5.5); LYMPHOCYTES % (AUTO) 9.2 % (20.5-51.5); MEAN CORPUSCULAR HEMOGLOBIN 29 pg (27-31); MEAN CORPUSCULAR HGB CONC 34 % (32-36); MEAN CORPUSCULAR VOLUME 85 fL (79.0-98.0); MONOCYTES # (AUTO) 0.4 K/uL (0.0-1.0); MONOCYTES % (AUTO) 5.4 % (1.7-9.3); NEUTROPHILS # (AUTO) 6.8 K/uL (1.8-7.7); NEUTROPHILS % (AUTO) 85.2 % (40.0-70.0); PLATELET COUNT (AUTO) 409 K/uL (130-430); RED BLOOD CELL COUNT(AUTO) 3.82 MIL/uL (4.2-6.2); RED CELL DISTRIBUTION WIDTH 15.1 % (9.0-15.0)
[2022-04-08 08:07] LABS: ANION GAP 7 (5-15); CHLORIDE 104 mmol/L (98-107); CREATININE 0.72 mg/dL (0.55-1.30); GLUCOSE 111 mg/dL (70-99); POTASSIUM 4.3 mmol/L (3.5-5.1); SODIUM SERUM 137 mmol/L (136-145); UREA NITROGEN, BLOOD 32 mg/dL (8-21)
[2022-04-08] MEDS: MINERAL OIL 30 ML UDC PO SCH (09:00)
[2022-04-08] MEDS: LEVOTHYROXINE SODIUM 0.1 MG VIAL IVP SCH (09:39)
[2022-04-08] MEDS: SACUBITRIL/VALSARTAN 24 MG-26 MG 1 TABLET PO SCH ×2 (09:39→21:58)
[2022-04-08] MEDS: methylPREDNISolone SOD SUCC/PF 62.5 MG/ML VIAL IVP SCH ×2 (09:40→21:56)
[2022-04-08] MEDS: CEFEPIME 2 GM in D5W 100 ML IV SCH ×2 (09:40→21:52)
[2022-04-08] MEDS: KCL 20 mEq in 100 mL (PREMIX) 100 ML IV SCH ×2 (09:41→22:08)
[2022-04-08] MEDS: DULoxetine HCL 30 MG CAPSULE.DR (CYMBALTA) PO SCH (09:41)
[2022-04-08] MEDS: APIXABAN 2.5 MG TABLET PO SCH ×2 (09:42→22:07)
[2022-04-08] MEDS: SPIRONOLACTONE 25 MG TABLET (ALDACTONE) PO SCH (09:42)
[2022-04-08] MEDS: AMIODARONE HCL 200 MG TABLET PO SCH ×2 (09:43→21:58)
[2022-04-08] MEDS: [UNRECOGNIZED DRUG - OTHER] OT SCH ×2 (09:44→21:00)
[2022-04-08] MEDS: CIPROFLOXACIN HCL OT SCH ×2 (09:44→21:00)
[2022-04-08] MEDS: CALCITONIN SALMON,SYNTHETIC 3.7 ML SPRAY.PUMP NS SCH (09:44)
[2022-04-08] MEDS: FUROSEMIDE 20 MG/2 ML VIAL IVP SCH ×2 (09:48→21:57)
[2022-04-08] MEDS: HYDROmorphone 1 MG/ML INJ. CARTRIDGE IVP PRN (12:01)
[2022-04-08] MEDS: ZOLPIDEM TARTRATE 5 MG TABLET PO PRN (22:13)
[2022-04-08] MEDS ORDERED: ZOLPIDEM TARTRATE 5 MG TABLET ONE (22:16)
[2022-04-09] VITALS (7 sets, daily range): BP systolic 124–162
[2022-04-09] MEDS: IPRATROPIUM/ALBUTEROL SULFATE 3 ML AMPUL.NEB (DUONEB) INH SCH ×4 (01:36→20:58)
[2022-04-09 07:37] LABS: ALANINE AMINOTRANSFERASE 16 U/L (12-78); ALBUMIN 2.5 g/dL (3.4-4.8); ANION GAP 8 (5-15); ASPARTATE AMINOTRANSFERASE 16 U/L (10-37); CALCIUM 8.8 mg/dL (8.4-11.0); CHLORIDE 101 mmol/L (98-107); CREATININE 0.79 mg/dL (0.55-1.30); GLUCOSE 168 mg/dL (70-99); POTASSIUM 4.4 mmol/L (3.5-5.1); SODIUM SERUM 134 mmol/L (136-145); TOTAL BILIRUBIN 0.3 mg/dL (0.0-1.0); UREA NITROGEN, BLOOD 31 mg/dL (8-21)
[2022-04-09 07:46] LABS: BASOPHILS % (AUTO) 0.1 % (0.0-2.0); HEMATOCRIT 32.6 % (36-48); HEMOGLOBIN 11.2 g/dL (12.0-16.0); LYMPHOCYTES # (AUTO) 0.4 K/uL (1.0-5.5); LYMPHOCYTES % (AUTO) 5.2 % (20.5-51.5); MEAN CORPUSCULAR HEMOGLOBIN 29 pg (27-31); MEAN CORPUSCULAR HGB CONC 34 % (32-36); MEAN CORPUSCULAR VOLUME 84 fL (79.0-98.0); MONOCYTES # (AUTO) 0.1 K/uL (0.0-1.0); MONOCYTES % (AUTO) 1.6 % (1.7-9.3); NEUTROPHILS # (AUTO) 7.4 K/uL (1.8-7.7); NEUTROPHILS % (AUTO) 93.1 % (40.0-70.0); PLATELET COUNT (AUTO) 427 K/uL (130-430); RED BLOOD CELL COUNT(AUTO) 3.86 MIL/uL (4.2-6.2); RED CELL DISTRIBUTION WIDTH 14.7 % (9.0-15.0)
[2022-04-09] MEDS: APIXABAN 2.5 MG TABLET PO SCH ×2 (08:43→21:32)
[2022-04-09] MEDS: LEVOTHYROXINE SODIUM 0.1 MG VIAL IVP SCH (08:44)
[2022-04-09] MEDS: SPIRONOLACTONE 25 MG TABLET (ALDACTONE) PO SCH (08:44)
[2022-04-09] MEDS: DULoxetine HCL 30 MG CAPSULE.DR (CYMBALTA) PO SCH (08:44)
[2022-04-09] MEDS: AMIODARONE HCL 200 MG TABLET PO SCH ×2 (08:44→21:19)
[2022-04-09] MEDS: MINERAL OIL 30 ML UDC PO SCH (08:44)
[2022-04-09] MEDS: CALCITONIN SALMON,SYNTHETIC 3.7 ML SPRAY.PUMP NS SCH (08:45)
[2022-04-09] MEDS: CIPROFLOXACIN HCL OT SCH ×2 (08:45→21:00)
[2022-04-09] MEDS: FUROSEMIDE 20 MG/2 ML VIAL IVP SCH ×2 (08:45→21:18)
[2022-04-09] MEDS: [UNRECOGNIZED DRUG - OTHER] OT SCH ×2 (08:45→21:00)
[2022-04-09] MEDS: CEFEPIME 2 GM in D5W 100 ML IV SCH ×2 (08:45→21:17)
[2022-04-09] MEDS: methylPREDNISolone SOD SUCC/PF 62.5 MG/ML VIAL IVP SCH ×2 (09:01→21:19)
[2022-04-09] MEDS: SACUBITRIL/VALSARTAN 24 MG-26 MG 1 TABLET PO SCH ×2 (09:01→21:21)
[2022-04-09] MEDS: KCL 20 mEq in 100 mL (PREMIX) 100 ML IV SCH (09:51)
--- NOTE | 2022-04-09 10:02 | NUR ---
Discharge Planning: LEXI faxed pt referral to [facility] [phone], LEXI to follow up. Addendum: 04/09/22 at 1535 by Jie Staples DP [facility] [phone] has no skilled beds, LEXI made CM aware. CM stated family wants to take patient home with home health. [facility] faxed pt referral to [facility] P#[phone] F#[phone] LEXI to follow up.
[2022-04-09] MEDS: HYDROmorphone 1 MG/ML INJ. CARTRIDGE IVP PRN (14:12)
--- NOTE | 2022-04-09 14:53 | NUR ---
CM: Informed eden Horne the dcp to snf vs home. Dtr wants to take pt home with [facility] ( arranged by her family md.)She will call back with the contact info. She aware to cancel the current HH agency so that [facility] can get authorization.
[2022-04-09] MEDS: cloNIDine HCL 0.1 MG TABLET PO PRN (16:04)
--- NOTE | 2022-04-09 16:41 | NUR ---
DISCH PLANNING NOTES SPOKE WITH DR BADILLO WITH REGARDS TO ABX PRESCRPITON PRIOR TO D/C. STATED WILL STOP ALL ABX .
--- NOTE | 2022-04-09 16:42 | NUR ---
rn notes patients BP was >160 SBP around 1600. Gave PRN BP meds, rechecked at 1630, newest BP at 137/63 and 75 HR
--- NOTE | 2022-04-09 17:32 | NUR ---
rn notes patient remains on room air, no sob noted. Pain under control with 0.5 mg dilaudid, BP under control with PRN meds. Plan is to dc home with [facility], abx oral.
--- NOTE | 2022-04-09 21:04 | NUR ---
PAGED DR. DEGROOT I SPOKE TO EDWARD
[2022-04-09] MEDS: ZOLPIDEM TARTRATE 5 MG TABLET PO PRN (21:20)
--- NOTE | 2022-04-09 21:30 | NUR ---
THIS RN TO SPEAK WITH DR. DEGROOT IN REGARDS TO IV POTASSIUM 20 MeQ IN 100ML BID- POTASSIUM NOTED 4.4 AND STABLE SINCE 04/05/2022. MD VOICED DISCONTINUE THE POTASSIUM AND KEEP THE LASIX MD ORDERED. TAVARES NOTED LEAKING AND MD VOICED LEAVE IT OUT AND DO A BLADDER SCAN Q SHIFT AND IF GREATER THAN 300ML REPLACE TAVARES. CHARGE NURSE AWARE. WILL REPORT TO UPCOMING. NURSE WILL REPORT TO ONCOMING NURSE.
--- NOTE | 2022-04-09 22:53 | NUR ---
ROUNDS: DR LOPEZ MADE MD RANDY ORDERED TO CHANGE SOLU MEDROL 40 MG BID TO SOLU MEDROL 20 MG BID FROM TOMORROW MORNING
[2022-04-10] MEDS: IPRATROPIUM/ALBUTEROL SULFATE 3 ML AMPUL.NEB (DUONEB) INH SCH ×4 (05:59→20:08)
[2022-04-10 06:30] VITALS: BP_SYST 144
--- NOTE | 2022-04-10 06:50 | NUR ---
THIS RN TO BLADDER SCAN PT Q SHIFT DIRECTED- PATIENT WAS ABLE TO VOID PRIOR TO THE BLADDER SCAN (INCONTINENT ) AND HER PVR WAS 0. PATIENT VOIDING FREELY WITH 0 S/S OR C/O. WILL CONTINUE POC AND REPORT TO ONCOMING NURSE
[2022-04-10 07:58] LABS: BASOPHILS % (AUTO) 0.2 % (0.0-2.0); HEMATOCRIT 33.8 % (36-48); HEMOGLOBIN 11.5 g/dL (12.0-16.0); LYMPHOCYTES # (AUTO) 0.6 K/uL (1.0-5.5); LYMPHOCYTES % (AUTO) 5.9 % (20.5-51.5); MEAN CORPUSCULAR HEMOGLOBIN 29 pg (27-31); MEAN CORPUSCULAR HGB CONC 34 % (32-36); MEAN CORPUSCULAR VOLUME 85 fL (79.0-98.0); MONOCYTES # (AUTO) 0.3 K/uL (0.0-1.0); MONOCYTES % (AUTO) 3.2 % (1.7-9.3); NEUTROPHILS # (AUTO) 8.5 K/uL (1.8-7.7); NEUTROPHILS % (AUTO) 90.7 % (40.0-70.0); PLATELET COUNT (AUTO) 499 K/uL (130-430); RED BLOOD CELL COUNT(AUTO) 3.99 MIL/uL (4.2-6.2); RED CELL DISTRIBUTION WIDTH 15.1 % (9.0-15.0); WHITE BLOOD COUNT (AUTO) 9.4 K/uL (4.8-10.8)
[2022-04-10 08:00] VITALS: BP_SYST 148
--- NOTE | 2022-04-10 08:00 | NUR ---
OPENING NOTE: RECEIVED PATIENT FROM SHOT POLISHER RN. PATIENT EATING BREAKFAST. HEAD OF THE BED ELEVATED. BREATHING EVEN AND NON LABORED TO OXYMIZER AT 5L. DENIES ANY DISCOMFORT AT THIS TIME. FALL, ASPIRATION AND SAFETY MEASURES REINFORCED. CALL LIGHT WITHIN REACH.
--- NOTE | 2022-04-10 08:16 | NUR ---
RN NOTES: INCONTINENT CARE DONE. NO S/S OF ACUTE DISTRESS NOTED. SACRAL AREA INTACT AND NO REDNESS NOTED. FALL AND SAFETY MEASURES RENDERED. CALL LIGHT WITHIN REACH.
[2022-04-10] MEDS ORDERED: methylPREDNISolone SOD SUCC/PF 62.5 MG/ML VIAL IVP SCH (09:00)
[2022-04-10] MEDS: MINERAL OIL 30 ML UDC PO SCH (09:51)
[2022-04-10] MEDS: AMIODARONE HCL 200 MG TABLET PO SCH ×2 (09:52→21:20)
[2022-04-10] MEDS: DULoxetine HCL 30 MG CAPSULE.DR (CYMBALTA) PO SCH (09:53)
[2022-04-10] MEDS: APIXABAN 2.5 MG TABLET PO SCH ×2 (09:54→21:23)
[2022-04-10] MEDS: SACUBITRIL/VALSARTAN 24 MG-26 MG 1 TABLET PO SCH ×2 (09:54→21:21)
[2022-04-10] MEDS: FUROSEMIDE 20 MG/2 ML VIAL IVP SCH (09:56)
[2022-04-10] MEDS: LEVOTHYROXINE SODIUM 0.1 MG VIAL IVP SCH (10:00)
[2022-04-10 10:01] LABS: ANION GAP 8 (5-15); CALCIUM 8.9 mg/dL (8.4-11.0); CHLORIDE 101 mmol/L (98-107); CREATININE 0.71 mg/dL (0.55-1.30); GLUCOSE 121 mg/dL (70-99); POTASSIUM 4.5 mmol/L (3.5-5.1); SODIUM SERUM 133 mmol/L (136-145); UREA NITROGEN, BLOOD 31 mg/dL (8-21)
[2022-04-10] MEDS: SPIRONOLACTONE 25 MG TABLET (ALDACTONE) PO SCH (10:01)
[2022-04-10] MEDS: CALCITONIN SALMON,SYNTHETIC 3.7 ML SPRAY.PUMP NS SCH (10:08)
[2022-04-10] MEDS: CIPROFLOXACIN HCL OT SCH ×2 (10:09→21:27)
[2022-04-10] MEDS: [UNRECOGNIZED DRUG - OTHER] OT SCH ×2 (10:09→21:27)
[2022-04-10] MEDS: CEFEPIME 2 GM in D5W 100 ML IV SCH (10:10)
[2022-04-10 11:26] VITALS: BP_SYST 150
[2022-04-10] MEDS ORDERED: FURO-150 PO (13:44)
[2022-04-10] MEDS ORDERED: AMIO200T61 PO (13:44)
[2022-04-10] MEDS ORDERED: APIX2.5T PO (13:44)
[2022-04-10] MEDS ORDERED: IPRA3AMP9 INH (13:44)
[2022-04-10] MEDS ORDERED: CALC3.8S NS (13:44)
[2022-04-10] MEDS ORDERED: SPIR25TA PO (13:45)
[2022-04-10] MEDS ORDERED: SACU1TAB PO (13:45)
[2022-04-10] MEDS ORDERED: Mineral Oil 30 Ml Po PO (13:45)
--- NOTE | 2022-04-10 14:42 | NUR ---
CM: Discussed dcp to home with homehealth with eden/Coleen the barrier for dc. The pt is on 5L via oximizer and the O2 sat dropped with activity. Per dr Hoffmann, the antibiotic is to dc upon discharge and no home abx needs. The homehealth is set up with [facility]. Coleen aware pt can be dc once able to take less o2. The patient already has home oxygen, concentrator and portable tank, using 2-3 L nc at home.
[2022-04-10 15:45] VITALS: BP_SYST 140
[2022-04-10] MEDS: FUROSEMIDE 20 MG TABLET PO SCH (17:14)
--- NOTE | 2022-04-10 19:20 | NUR ---
CLOSING NOTES: PATIENT RESTING IN BED. DENIES ANY DISCOMFORT AT THIS TIME. NEEDS MET THROUGHOUT SHIFT. ENDORSED TO LYE MACHINE OPERATOR RN.
[2022-04-10 20:00] VITALS: BP_SYST 145
[2022-04-10] MEDS: ZOLPIDEM TARTRATE 5 MG TABLET PO PRN (21:19)
[2022-04-11 00:57] VITALS: BP_SYST 136
[2022-04-11] MEDS: IPRATROPIUM/ALBUTEROL SULFATE 3 ML AMPUL.NEB (DUONEB) INH SCH ×3 (01:24→13:57)
[2022-04-11] MEDS: FUROSEMIDE 20 MG TABLET PO SCH (06:25)
--- NOTE | 2022-04-11 06:40 | NUR ---
PATIENT IN FAIR SPIRITS THIS SHIFT WITH AN UNEVENTFUL 12 HOURS AND 0 S/S OF DISTRESS OR C/O AT THIS TIME. OXYMIZER AT 5L MD ORDERED WITH O2 SATURATION GREATER THAN 94%. PATIENT VOIDING FREELY WITH 0 S/S OF RETENTION NOTED. NOTE eMAR AND FLOWSHEETS THIS SHIFT. WILL CONTINUE POC AND REPORT TO ONCOMING NURSE.
[2022-04-11 08:00] VITALS: BP_SYST 143
--- NOTE | 2022-04-11 08:00 | NUR ---
OPENING NOTE: PATIENT EATING BREAKFAST. HEAD OF THE BED ELEVATED. BREATHING EVEN AND NON LABORED TO OXYMIZER AT 4L. INCONTINENT CARE DONE. FALL, ASPIRATION AND SAFETY MEASURES REINFORCED. CALL LIGHT WITHIN REACH
[2022-04-11] MEDS: DULoxetine HCL 30 MG CAPSULE.DR (CYMBALTA) PO SCH (08:35)
[2022-04-11] MEDS: MINERAL OIL 30 ML UDC PO SCH ×2 (08:37→09:00)
[2022-04-11] MEDS: SPIRONOLACTONE 25 MG TABLET (ALDACTONE) PO SCH (08:37)
[2022-04-11] MEDS: AMIODARONE HCL 200 MG TABLET PO SCH (08:37)
[2022-04-11] MEDS: LEVOTHYROXINE SODIUM 0.1 MG VIAL IVP SCH (08:39)
[2022-04-11] MEDS: CALCITONIN SALMON,SYNTHETIC 3.7 ML SPRAY.PUMP NS SCH (08:40)
[2022-04-11] MEDS: SACUBITRIL/VALSARTAN 24 MG-26 MG 1 TABLET PO SCH (08:42)
[2022-04-11] MEDS: APIXABAN 2.5 MG TABLET PO SCH (08:43)
[2022-04-11] MEDS: CIPROFLOXACIN HCL OT SCH (08:44)
[2022-04-11] MEDS: [UNRECOGNIZED DRUG - OTHER] OT SCH (08:44)
--- NOTE | 2022-04-11 10:22 | NUR ---
Discharge Planning: DCP followed up with [facility] P#[phone] F#[phone] patient accepted. DCP made CM aware. Disposition 06
[2022-04-11 11:33] VITALS: BP_SYST 140
--- NOTE | 2022-04-11 14:27 | NUR ---
CM: Discharge barriers: Oxygen weaning in progress, now on 4L Oxymizer. The pt will need pulmo clearance for discharge. The pt already has home oxygen and portable tank. [facility] will f/u upon discharge.
--- NOTE | 2022-04-11 14:39 | NUR ---
SPOKE TO DR. DEGROOT/ TORITO TO DC PATIENT: SPOKE TO DR. DEGROOT. PATIENT IS AT 3L/NC. O2 SAT AT 94-95. PER TORITO KEVIN TO DISCHARGE PATIENT AND MAY PULL OUT PICC LINE BEFORE DISCHARGE.
[2022-04-11 15:13] VITALS: BP_SYST 140
--- NOTE | 2022-04-11 15:13 | NUR ---
EJ LOPEZ WAS PAGED, RE: APPROVAL/CLEARANCE FOR DISCHARGE. SPOKE TO SHERLEY
--- NOTE | 2022-04-11 15:15 | NUR ---
Spoke to DR. Lyman/ Pulmo: Spoke to Dr. Lyman. Per lola Becerril to discharge patient. Ff up w/ Therapeutic Activities Services Worker within 1 week.
[2022-04-11 15:27] VITALS: BP_SYST 138
--- NOTE | 2022-04-11 16:00 | NUR ---
D/C Patient Patient and daughter given medication reconciliation form and D/C instructions. Exit Care provided. Patient verbalized understanding. MD discussed with patient the results and treatment provided. Ambulatory with unsteady gait for discharge to home. Patient in stable condition, ID band removed. midline catheter removed, intact and dressing applied, no active bleeding. E script sent to preferred pharmacy. Patient educated on pain management. All belongings sent with patient.
== END 2022-04-11 16:00 | disposition home health service (06) | DRG 871 ==
LOC: SED 02:06 → STU 06:59 → SIC 10:35 → STU 04-08 19:47
PROVIDERS: ADMIT Internal Medicine; ATTEND Internal Medicine
DX: A41.9 Sepsis, unspecified organism (principal); E43 Unspecified severe protein-calorie malnutrition; I50.33 Acute on chronic diastolic (congestive) heart failure; J69.0 Pneumonitis due to inhalation of food and vomit; J96.01 Acute respiratory failure with hypoxia; N17.0 Acute kidney failure with tubular necrosis; R65.21 Severe sepsis with septic shock; J15.9 Unspecified bacterial pneumonia; I13.0 Hypertensive heart and chronic kidney disease with heart failure and stage 1 through stage 4 chronic kidney disease, or unspecified chronic kidney disease; J44.0 Chronic obstructive pulmonary disease with (acute) lower respiratory infection; K56.600 Partial intestinal obstruction, unspecified as to cause; F03.90 Unspecified dementia, unspecified severity, without behavioral disturbance, psychotic disturbance, mood disturbance, and anxiety; E03.9 Hypothyroidism, unspecified; D64.9 Anemia, unspecified; I25.10 Atherosclerotic heart disease of native coronary artery without angina pectoris; E78.5 Hyperlipidemia, unspecified; M79.7 Fibromyalgia; I48.0 Paroxysmal atrial fibrillation; E11.22 Type 2 diabetes mellitus with diabetic chronic kidney disease; Z96.611 Presence of right artificial shoulder joint; Y95 Nosocomial condition; D63.8 Anemia in other chronic diseases classified elsewhere; E87.5 Hyperkalemia; N18.30 Chronic kidney disease, stage 3 unspecified; E86.0 Dehydration; E88.09 Other disorders of plasma-protein metabolism, not elsewhere classified; N32.81 Overactive bladder; Z20.822 Contact with and (suspected) exposure to COVID-19; E66.01 Morbid (severe) obesity due to excess calories; Z99.81 Dependence on supplemental oxygen; Z90.710 Acquired absence of both cervix and uterus; Z90.49 Acquired absence of other specified parts of digestive tract; Z88.5 Allergy status to narcotic agent; Z88.0 Allergy status to penicillin; Z88.8 Allergy status to other drugs, medicaments and biological substances; Z91.040 Latex allergy status; Z79.899 Other long term (current) drug therapy; Z79.891 Long term (current) use of opiate analgesic; Z68.34 Body mass index [BMI] 34.0-34.9, adult; Z87.891 Personal history of nicotine dependence; Z87.440 Personal history of urinary (tract) infections; Z87.01 Personal history of pneumonia (recurrent); Z86.73 Personal history of transient ischemic attack (TIA), and cerebral infarction without residual deficits; Z82.49 Family history of ischemic heart disease and other diseases of the circulatory system; Z79.01 Long term (current) use of anticoagulants; Z74.01 Bed confinement status
CPT/HCPCS: 36415; 36600; 71045; 71250-TC; 74018; 74021; 74250-TC; 76376; 78579; 78580-TC; 80048; 80053; 81000; 82803-TC; 83605; 83690; 83735; 83880; 84100; 84439; 84443; 84484; 85025; 85610-TC; 85730-TC; 87040; 87081; 87086; 92610-GN; 93005; 93970; 94640; 94760; 96365; 96375; 97116-GP; 97530-GP; 99291; A9539; A9540; G0378; J0456; J0692; J1030; J1170; J1940; J2185; J2405; J2930; J3370; J3480; J7050; J7060; Q9963; Q9964